=== PATIENT | male | born 1965 | race Caucasian/White ===

== ENCOUNTER 2025-10-15 21:29 | Inpatient (IN) | payer MEDICARE, MEDICAID, SELFPAY ==
--- NOTE | ~2025-10-15 | CT_ITS ---
CLINICAL HISTORY: Abnormal CXR; Cough; SOB CT chest with contrast Comparison: CR - XR CHEST 1V - 10/15/25 21:59 EST Findings: Patient's earlier chest x-ray demonstrate dense consolidation of the right lung base. CT scan demonstrates a cavitary lesion with fluid-fluid level corresponding to this area of consolidation. This cavitary lesion measures 4.4 x 4.8 cm in size. There is prominent surrounding consolidation within the lungs measuring 8.9 x 8.2 cm in size. This is primarily seen within the right middle lobe. However, there is extension of the consolidation into the superior segment of the right lower lobe. There is sparing of the right upper lobe. No infiltrates are seen within the left lung. Trachea mainstem bronchi are patent. Overall heart size within normal limits. No pathologically enlarged lymph nodes within the mediastinum or hilum. Mild elevation of the right hemidiaphragm. Extensive low attenuation throughout the liver is indicative of fatty infiltration. There are geographic areas of more focal low attenuation which is likely related to differential areas of fatty infiltration. This cavernous transformation of the portal vein with numerous collateral vessels in the region of the theresa hepatis. No focal splenic lesions are seen. Numerous collateral vessels along the lesser curvature of the stomach. Small peripancreatic lymph nodes. Tiny calcifications in the pancreatic head. Potential inflammatory stranding surrounding the pancreatic head and uncinate process of the pancreas as well. Common hepatic duct is dilated to 17 mm. Fairly abrupt cutoff of the common bile duct the level of the pancreas. Gallbladder is moderately distended. No free air in the upper abdomen. No acute bony abnormality. IMPRESSION: 1. Chest x-ray abnormality corresponds to a cavitary lesion with fluid fluid level within the right lung, primarily within the right middle lobe. There are surrounding areas of consolidation. Lung abscess would be the favored diagnosis. However, other etiologies could include the possibly of necrotic tumor. Cardiothoracic surgery consultation suggested. 2. Extensive low attenuation throughout the liver. More focal areas of low attenuation are likely related to differential areas of fatty infiltration. However, further evaluation with MRI of the liver is suggested. 3. Dilated common hepatic duct with abrupt cutoff in the region of the pancreas. There appears to be inflammatory stranding surrounding the pancreas with potential areas of scarring. Again, further evaluation with a MRI/MRCP of the abdomen is suggested. The timing of this MRI can be based on the patient's clinical scenario given the lung parenchymal findings. This document has been electronically signed by: José Miguel Pat MD on 10/16/2025 01:44:30
--- NOTE | ~2025-10-15 | XR_ITS ---
CLINICAL HISTORY: chest pain Exam: AP portable chest x-ray. Comparison: None provided. Findings: Mild hypoinflation. Moderate elevation of the right hemidiaphragm. Cardiac silhouette is within normal limits. Dense consolidation along the lateral aspect of the right mid lung with obscuration along the right lateral hemidiaphragm. Left lung is clear. No pneumothorax. Impression: Dense consolidation of the right lung base most characteristic of pneumonia. At minimum, follow up PA and lateral chest x-ray in 4-6 weeks is suggested to ensure resolution. If more urgent imaging evaluation is clinically appropriate, CT of the chest with intravenous contrast would be suggested. This document has been electronically signed by: José Miguel Pat MD on 10/15/2025 22:45:17
--- NOTE | ~2025-10-15 | MR_ITS ---
EXAMINATION: MR ABDOMEN WITHOUT THEN WITH IV CONTRAST HISTORY: liver lesion; pancreatitis COMPARISON: Correlation is made with the upper abdominal images from a chest CT dated 10/16/2025. TECHNIQUE: Axial in and out of phase T1-weighted gradient echo, axial diffusion weighted, and axial and coronal HASTE T2 with fat saturation images were obtained through the abdomen. Subsequently, fat suppressed axial and coronal T1-weighted images were obtained after the intravenous administration of 7 mL Gadavist. FINDINGS: Liver: There is heterogeneous loss of signal intensity in the liver on opposed phase imaging, consistent with steatosis. There is no enhancing liver mass. The intrahepatic hepatic and portal veins are patent. There is mild intrahepatic biliary ductal dilatation. Gallbladder/biliary tree: No gallstones are identified. The common bile duct is dilated measuring up to 17 mm in diameter. The common bile duct tapers abruptly in the pancreatic head. No intraluminal filling defects are identified to suggest choledocholithiasis. Spleen: The spleen is mildly enlarged. Pancreas: There is an irregular spiculated mass of the pancreatic head measuring 2.8 x 2.9 cm. This causes obstruction of the common bile duct. The extrahepatic portal vein is occluded by the pancreatic head mass. Multiple tortuous vessels are seen in the theresa hepatis consistent with cavernous transformation of the portal vein. Adrenals: The adrenal glands are unremarkable. Kidneys: There is a subcentimeter cyst at the upper pole of the right kidney. The left kidney is unremarkable. There is no hydronephrosis. Lymph nodes: There is no retroperitoneal lymphadenopathy in the upper abdomen. Fluid: There is no ascites in the upper abdomen. Visualized bowel: The visualized small and large bowel loops are unremarkable in appearance. Visualized bones: The visualized bones demonstrate normal marrow signal intensity. Additional findings: There is a cavitary mass in the right lung as noted on chest CT. There is surrounding airspace disease, consistent with pneumonia. MR/MR abdomen wo/w con IMPRESSION: 1. 2.8 x 2.9 cm irregular spiculated mass in the pancreatic head causing biliary obstruction as well as obstruction of the portal vein. Findings are highly suspicious for pancreatic adenocarcinoma. 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 2. Heterogeneous hepatic steatosis. 3. Cavitary mass in the right lung with surrounding pneumonia as seen on chest CT. 4. Findings were discussed with Dr. Michele by secure text message on 10/16/2025 at 3:54 PM. Electronically signed by: Ken Pino MD 10/16/2025 03:59 PM PO
--- NOTE | ~2025-10-15 | CT_ITS ---
CLINICAL HISTORY: Recurrent Falls; EtOH abuse CT head without contrast Comparison: None provided Findings: There is generalized cerebral and cerebellar atrophy, greater than expected for a patient of this age. The size and shape of the ventricular system is within normal limits for this degree of atrophy. Moderate areas of low attenuation seen within the periventricular and deep white matter. No midline shift or mass effect. No intracranial hemorrhage. No calvarial fractures. Complete opacification of the right maxillary sinus with surrounding bony sclerosis. Mild atelectasis of the right maxillary sinus with extension mucosal thickening into the anterior right ethmoid air cells. IMPRESSION: 1. No acute intracranial findings. Specifically, no hemorrhage, fracture, or acute territorial infarct. 2. Atrophy greater than expected for age with moderate white matter changes. Although nonspecific, this is likely related to chronic microvascular ischemic change. 3. Likely chronic right maxillary sinus disease. This document has been electronically signed by: José Miguel Pat MD on 10/16/2025 01:38:47
[2025-10-15 21:40] VITALS: BP 151/99; PULSE 97; O2SAT 95
[2025-10-15 21:42] VITALS: BP 147/90; PULSE 95; RESP 20; TEMP 36.8; O2SAT 97; BMI 24.3
--- NOTE | 2025-10-15 21:51 | ECG_ITS ---
Test Reason : falls Blood Pressure : */* mmHG Vent. Rate : 94 BPM Atrial Rate : 94 BPM P-R Int : 146 ms QRS Dur : 76 ms QT Int : 374 ms P-R-T Axes : 38 -22 -18 degrees QTcB Int : 467 ms Normal sinus rhythm Minimal voltage criteria for LVH, may be normal variant ( R in aVL ) Septal infarct , age undetermined Abnormal ECG No previous ECGs available Referred By: Generic ED Physician Electronically Signed By: KATELYNN ORLANDO
[2025-10-15 22:07] LABS: MANUAL DIFF FLAG NO
[2025-10-15 22:10] LABS: Hematocrit 30.0 % (42.0-52.0); Hemoglobin 9.3 g/dl (14.0-18.0); Imm Gran Abs Auto 0.05 X10*3/uL (0.00-0.03); Imm Gran Pct Auto 0.4 % (0.0-0.4); Lymphocytes Absolute Auto 1.4 X10*3/uL (1.2-4.9); Mean Corpuscular HGB Conc 31.0 g/dl (31.0-36.0); Mean Corpuscular Hemoglobin 24.2 pg (27.0-33.0); Mean Corpuscular Volume 77.9 fL (80.0-98.0); NRBC Abs Auto 0.000 X10*3/uL (0.0-0.012); NRBC Pct Auto 0.0 /100WBC (0.0-0.2); Platelet Count 335 X10*3/uL (160-400); Red Blood Count 3.85 X10*6/uL (4.60-5.80); White Blood Count 12.1 X10*3/uL (4.8-10.8)
[2025-10-15 22:35] LABS: Alanine Aminotransferase 9 U/L (0-40); Albumin Level 3.2 g/dL (3.5-5.0); Alkaline Phosphatase 78 U/L (39-117); Anion Gap 17 (12-20); Aspartate Amino Transferase 22 U/L (5-37); Blood Urea Nitrogen 10 mg/dL (9-16); Calcium 8.0 mg/dL (8.4-10.2); Carbon Dioxide 22 mmol/L (22-29); Chloride 95 mmol/L (96-108); Creatinine Clr Calc Pharmacy 87.4; Estimated Glomerular Filt Rate > 60; Magnesium 0.9 mg/dL (1.6-2.6); Potassium 3.6 mmol/L (3.3-5.1); Sodium 130 mmol/L (135-145); Total Protein 8.1 g/dL (6.5-8.0)
[2025-10-15 22:40] LABS: Troponin-I High Sensitivity < 2.7 ng/L (<3.5-35.0)
[2025-10-15] MEDS: Magnesium Sulfate/H2O 2 GM/50 ML PIGGYBACK IV (23:10)
[2025-10-15 23:27] LABS: IDNOW Serial# 55D5AD1C; Influenza B2 Negative (Negative)
[2025-10-15 23:33] LABS: Resp Syncy Virus RNA Qual PCR NEGATIVE (Negative); SARS COV2 PCR INHOUSE NEGATIVE (Negative)
--- NOTE | 2025-10-15 23:42 | ED_ITS ---
HPI - General Adult General Chief complaint: General Medical Stated complaint: BACK PAIN ETOH Time Seen by Provider: 10/15/25 23:41 Source: patient Mode of arrival: ambulatory Limitations: no limitations History of Present Illness ED Provider: Beau DE LA CRUZ HPI narrative: The patient is a 60-year-old male who presents to the ED for evaluation of worsening cough and chest pain. He reports a productive cough for approximately three months. Sputum color is unknown as he states he does not look at the sputum; he denies hemoptysis. Two weeks ago he experienced a syncopal episode, fell, and subsequently developed localized pain in the right upper chest/side. He denies associated fever, vomiting, diarrhea, or abdominal pain. He came to the ED tonight because the chest pain and cough have been getting worse rather than better. Social history is notable for alcohol use ?every now and then,? patient reports drinking alcohol this evening but denies daily use; reports he was not drinking on the night of the fall. He has not seen a doctor since the fall and has had no prior evaluation for these symptoms. Related Data Allergies Allergy/AdvReac Type Severity Reaction Status Date / Time No Known Allergies Allergy Verified 10/15/25 21:50 Review of Systems 2 Review of Systems: Yes all other systems are reviewed and are negative PMFSH Social History Social History Alcohol intake: current Patient Tobacco Use Status: Never used Tobacco Smoked in Last 30 Days: No Advance Directives: No Advance Directives Information Provided: No Physical Exam ED Vital Signs: Vital Signs - 24 hr 10/15/25 21:42 10/16/25 01:44 Temperature 98.3 F 98.9 F Pulse Rate 95 96 Respiratory Rate 20 16 Blood Pressure 147/90 H 124/86 Pulse Oximetry 97 95 Oxygen Delivery Method Room Air Room Air BMI result Body Mass Index 24.3 CONSTITUTIONAL: The patient appears non-toxic, well nourished and in no acute distress. Vital signs as documented. HEAD: Atraumatic, normocephalic. EYES: EOMs grossly intact, pupils equal, conjunctiva clear, no exudate. ENT: Nares patent, no discharge. Airway patent, no audible stridor, visible mucosa is pink and moist without noted lesions. NECK: Trachea is midline, no obvious masses or gross abnormalities. CHEST: Symmetric movement, normal appearance. Positive tenderness to palpation of the right anterolateral chest, palpation partially reproduces the patient's pain. LUNGS: LS diminished in the right lower lung washburn, otherwise present and CTAB, no w/r/r. Non-labored work of breathing. CARDIAC: Regular Rhythm, S1/S2 appreciated, no murmurs, rubs or gallops. ABDOMEN: Abdomen soft and non-tender x4 quadrants, no palpable masses or organomegaly. : Deferred. EXTREMITIES: Normal tone, moves all extremities spontaneously without reported pain. No obvious acute injury or deformity noted. NEURO: Alert and oriented x3, CN II-XII appear grossly intact. Cerebellar Functioning grossly intact. No obvious sensory or motor deficits. Speech clear and appropriate. PSYCH: normal affect, appropriate eye contact, fluid speech, with appropriate response to questioning. No reported suicidality or homicidality. SKIN: Warm, dry, color appropriate, normal turgor. No rashes noted. Medications Administered Generic Name Dose Route Start Last Admin Trade Name Freq PRN Reason Stop Dose Admin Heparin Sodium (Porcine) 5,000 unit 10/16/25 02:15 10/16/25 03:09 Heparin Sodium,Porcine 5,000 Unit/Ml Vial SUBCUT 5,000 unit Q8H ROMAN Administration Lactated Ringer's 1,000 mls @ 100 mls/hr 10/16/25 02:15 10/16/25 03:05 Lr IVCONT 100 mls/hr .Q10H ROMAN Administration Piperacillin Sod/Tazobactam 50 mls @ 100 mls/hr 10/16/25 02:30 10/16/25 04:16 Sod 3.375 gm/ Sodium Chloride IV Infused Q6H ROMAN Infusion Lorazepam 0 mg 10/16/25 04:30 10/16/25 06:18 Lorazepam 1 Mg Tablet PO 10/20/25 04:29 Not Given Q4H ROMAN Taper Melatonin 6 mg 10/16/25 02:11 10/16/25 05:15 Melatonin 3 Mg Tablet PO 6 mg BEDTIME PRN Administration Insomnia Discontinued Medications Generic Name Dose Route Start Last Admin Trade Name Freq PRN Reason Stop Dose Admin Magnesium Sulfate 2 gm in 50 mls @ 150 mls/hr 10/15/25 22:37 10/16/25 00:24 Magnesium Sulfate/H2o IV 10/15/25 22:56 Infused ONCE ONE Infusion Ceftriaxone Sodium 1 gm/ 50 mls @ 100 mls/hr 10/16/25 00:00 10/16/25 01:40 Sodium Chloride IV 10/16/25 00:29 Infused ONCE ONE Infusion Doxycycline Hyclate 100 mg/ 250 mls @ 166.67 mls/hr 10/16/25 00:00 10/16/25 04:17 Sodium Chloride IV 10/16/25 01:29 Infused ONCE ONE Infusion Sodium Chloride 2,109.21 mls @ 2,109.21 mls/hr 10/16/25 00:01 10/16/25 02:48 Ns 30 ml/kg infuse over 1 hr (2109.21 ml) 10/16/25 01:00 Infused IV Infusion .Q1H STA Vancomycin HCl 1,000 mg/ 535 mls @ 267.5 mls/hr 10/16/25 02:30 10/16/25 04:15 Vancomycin HCl 750 mg/ Sodium IV 10/16/25 04:29 267.5 mls/hr Chloride ONCE ONE Administration Iohexol 100 ml 10/16/25 00:41 10/16/25 00:42 Iohexol 350 Mg/Ml 100 Ml Infus..Btl IV 10/16/25 00:42 65 ml ONCE ONE Administration Lorazepam 2 mg 10/16/25 02:18 10/16/25 03:06 Lorazepam 1 Mg Tablet PO 10/16/25 02:19 2 mg ONCE ONE Administration Medical Decision Making Medical Decision Making [facility] Narrative: 12:57 AM 10/16/2025 (Elliot DE LA CRUZ): The patient is a 60-year-old male who presents to the ED for evaluation of worsening cough and chest pain. He reports a productive cough for approximately three months. Sputum color is unknown as he states he does not look at the sputum; he denies hemoptysis. Two weeks ago he experienced a syncopal episode, fell, and subsequently developed localized pain in the right upper chest/side. He denies associated fever, vomiting, diarrhea, or abdominal pain. He came to the ED tonight because the chest pain and cough have been getting worse rather than better. Social history is notable for alcohol use ?every now and then,? patient reports drinking alcohol this evening but denies daily use; reports he was not drinking on the night of the fall. He has not seen a doctor since the fall and has had no prior evaluation for these symptoms. On exam the patient has diminished breath sounds in the right base, otherwise clear to auscultation bilaterally. The patient appears mildly unkempt, clinically intoxicated, but in no acute distress. Palpation of the right lateral ribs partially reproduces the patient's pain. No other acute findings. The patient's laboratory evaluation shows leukocytosis of 12.1 with mild anemia, likely of chronic disease, with the associated hyponatremia with sodium 130, hypomagnesemia with magnesium 0.9, and hypoalbuminemia at 3.2. There was no BLANCA. The patient's viral swabs are negative for influenza, COVID, and RSV. The patient's alcohol level is 277. EKG is nonischemic, troponin is negative. The patient's chest x-ray shows dense consolidation in the right lower lobe with elevated right hemidiaphragm. Patient will be treated for suspected pneumonia with Rocephin and doxycycline, we will add on blood cultures and lactic acid. Additionally we will obtain CT chest to further clarify the chest x-ray findings. Patient reports he has been experiencing recurrent falls even before his fall 2 weeks ago with subsequent right chest pain, we will add on a CT head to ensure no acute intracranial pathology. Admission/Observation Consideration of admission/observation: Escalation of care including admission/observation considered Lab Data MDM Lab Attestation statement: I reviewed the patient's lab results. 10/16/25 05:10 10/16/25 05:10 Labs: Lab Results 10/15/25 10/15/25 10/15/25 Range/Units 22:01 22:04 22:46 WBC 12.1 H (4.8-10.8) X10*3/uL RBC 3.85 L (4.60-5.80) X10*6/uL Hgb 9.3 L (14.0-18.0) g/dl Hct 30.0 L (42.0-52.0) % MCV 77.9 L (80.0-98.0) fL MCH 24.2 L (27.0-33.0) pg MCHC 31.0 (31.0-36.0) g/dl RDW 19.3 H (11.0-16.0) % Plt Count 335 (160-400) X10*3/uL MPV 9.8 (9.4-12.4) fL Immature Gran % (Auto) 0.4 (0.0-0.4) % Neut % (Auto) 79.6 H (45-73) % Lymph % (Auto) 11.5 L (20-40) % [place] % (Auto) 6.7 (2-11) % Eos % (Auto) 1.1 (0-4) % Baso % (Auto) 0.7 (0-2) % Lymph # (Auto) 1.4 (1.2-4.9) X10*3/uL [place] # (Auto) 0.8 (0.1-1.2) X10*3/uL Eos # (Auto) 0.1 (0.0-0.4) X10*3/uL Baso # (Auto) 0.1 (0.0-0.2) X10*3/uL Abs Immat Gran (auto) 0.05 H (0.00-0.03) X10*3/uL Absolute Neuts (auto) 9.6 H (2.0-8.3) x10*3/uL Absolute Nucleated RBC 0.000 (0.0-0.012) X10*3/uL Nucleated RBC % (auto) 0.0 (0.0-0.2) /100WBC Sodium 130 L (135-145) mmol/L Potassium 3.6 (3.3-5.1) mmol/L Chloride 95 L (96-108) mmol/L Carbon Dioxide 22 (22-29) mmol/L Anion Gap 17 (12-20) BUN 10 (9-16) mg/dL Creatinine 0.85 (0.5-1.4) mg/dL Estim Creat Clear Calc 87.4 Estimated GFR > 60 Random Glucose 208 H (60-115) mg/dL Lactic Acid (0.5-2.0) mmol/L Calcium 8.0 L (8.4-10.2) mg/dL Magnesium 0.9 L* (1.6-2.6) mg/dL Total Bilirubin 0.6 (0.0-1.0) mg/dL AST 22 (5-37) U/L ALT 9 (0-40) U/L Alkaline Phosphatase 78 (39-117) U/L Troponin I High Sens < 2.7 (<3.5-35.0) ng/L Total Protein 8.1 H (6.5-8.0) g/dL Albumin 3.2 L (3.5-5.0) g/dL Lipase 17 (8-78) U/L Ethyl Alcohol 277 mg/dL Influenza Type A (MIRIAM) Negative (Negative) Influenza Type A (PCR) NEGATIVE (Negative) Influenza Type B (MIRIAM) Negative (Negative) Influenza Type B (PCR) NEGATIVE (Negative) Influenza A & B Note See Note RSV RNA Qual (PCR) NEGATIVE (Negative) SARS-CoV-2 RNA (RT-PCR) NEGATIVE (Negative) 10/16/25 Range/Units 00:58 WBC (4.8-10.8) X10*3/uL RBC (4.60-5.80) X10*6/uL Hgb (14.0-18.0) g/dl Hct (42.0-52.0) % MCV (80.0-98.0) fL MCH (27.0-33.0) pg MCHC (31.0-36.0) g/dl RDW (11.0-16.0) % Plt Count (160-400) X10*3/uL MPV (9.4-12.4) fL Immature Gran % (Auto) (0.0-0.4) % Neut % (Auto) (45-73) % Lymph % (Auto) (20-40) % [place] % (Auto) (2-11) % Eos % (Auto) (0-4) % Baso % (Auto) (0-2) % Lymph # (Auto) (1.2-4.9) X10*3/uL [place] # (Auto) (0.1-1.2) X10*3/uL Eos # (Auto) (0.0-0.4) X10*3/uL Baso # (Auto) (0.0-0.2) X10*3/uL Abs Immat Gran (auto) (0.00-0.03) X10*3/uL Absolute Neuts (auto) (2.0-8.3) x10*3/uL Absolute Nucleated RBC (0.0-0.012) X10*3/uL Nucleated RBC % (auto) (0.0-0.2) /100WBC Sodium (135-145) mmol/L Potassium (3.3-5.1) mmol/L Chloride (96-108) mmol/L Carbon Dioxide (22-29) mmol/L Anion Gap (12-20) BUN (9-16) mg/dL Creatinine (0.5-1.4) mg/dL Estim Creat Clear Calc Estimated GFR Random Glucose (60-115) mg/dL Lactic Acid 2.0 (0.5-2.0) mmol/L Calcium (8.4-10.2) mg/dL Magnesium (1.6-2.6) mg/dL Total Bilirubin (0.0-1.0) mg/dL AST (5-37) U/L ALT (0-40) U/L Alkaline Phosphatase (39-117) U/L Troponin I High Sens (<3.5-35.0) ng/L Total Protein (6.5-8.0) g/dL Albumin (3.5-5.0) g/dL Lipase (8-78) U/L Ethyl Alcohol mg/dL Influenza Type A (MIRIAM) (Negative) Influenza Type A (PCR) (Negative) Influenza Type B (MIRIAM) (Negative) Influenza Type B (PCR) (Negative) Influenza A & B Note RSV RNA Qual (PCR) (Negative) SARS-CoV-2 RNA (RT-PCR) (Negative) Independent Interpretation I performed an independent interpretation of an: EKG (EKG shows sinus rhythm with a rate of 94, no evidence of acute ischemia, no ST elevation, no ectopy. QTC 467. No old for comparison.) Radiology Impression Discussion of test interpretation with radiology: I have reviewed the radiologist's reading. Radiologist Impression: CLINICAL HISTORY: chest pain Exam: AP portable chest x-ray. Comparison: None provided. Findings: Mild hypoinflation. Moderate elevation of the right hemidiaphragm. Cardiac silhouette is within normal limits. Dense consolidation along the lateral aspect of the right mid lung with obscuration along the right lateral hemidiaphragm. Left lung is clear. No pneumothorax. Impression: Dense consolidation of the right lung base most characteristic of pneumonia. At minimum, follow up PA and lateral chest x-ray in 4-6 weeks is suggested to ensure resolution. If more urgent imaging evaluation is clinically appropriate, CT of the chest with intravenous contrast would be suggested. This document has been electronically signed by: José Miguel Pat MD on 10/15/2025 22:45:17 CT chest with contrast Comparison: CR - XR CHEST 1V - 10/15/25 21:59 EST Findings: Patient's earlier chest x-ray demonstrate dense consolidation of the right lung base. CT scan demonstrates a cavitary lesion with fluid-fluid level corresponding to this area of consolidation. This cavitary lesion measures 4.4 x 4.8 cm in size. There is prominent surrounding consolidation within the lungs measuring 8.9 x 8.2 cm in size. This is primarily seen within the right middle lobe. However, there is extension of the consolidation into the superior segment of the right lower lobe. There is sparing of the right upper lobe. No infiltrates are seen within the left lung. Trachea mainstem bronchi are patent. Overall heart size within normal limits. No pathologically enlarged lymph nodes within the mediastinum or hilum. Mild elevation of the right hemidiaphragm. Extensive low attenuation throughout the liver is indicative of fatty infiltration. There are geographic areas of more focal low attenuation which is likely related to differential areas of fatty infiltration. This cavernous transformation of the portal vein with numerous collateral vessels in the region of the theresa hepatis. No focal splenic lesions are seen. Numerous collateral vessels along the lesser curvature of the stomach. Small peripancreatic lymph nodes. Tiny calcifications in the pancreatic head. Potential inflammatory stranding surrounding the pancreatic head and uncinate process of the pancreas as well. Common hepatic duct is dilated to 17 mm. Fairly abrupt cutoff of the common bile duct the level of the pancreas. Gallbladder is moderately distended. No free air in the upper abdomen. No acute bony abnormality. IMPRESSION: 1. Chest x-ray abnormality corresponds to a cavitary lesion with fluid fluid level within the right lung, primarily within the right middle lobe. There are surrounding areas of consolidation. Lung abscess would be the favored diagnosis. However, other etiologies could include the possibly of necrotic tumor. Cardiothoracic surgery consultation suggested. 2. Extensive low attenuation throughout the liver. More focal areas of low attenuation are likely related to differential areas of fatty infiltration. However, further evaluation with MRI of the liver is suggested. 3. Dilated common hepatic duct with abrupt cutoff in the region of the pancreas. There appears to be inflammatory stranding surrounding the pancreas with potential areas of scarring. Again, further evaluation with a MRI/MRCP of the abdomen is suggested. The timing of this MRI can be based on the patient's clinical scenario given the lung parenchymal findings. This document has been electronically signed by: José Miguel Pat MD on 10/16/2025 01:44:30 External Record Review External record reviewed: Outpatient record and Prior outpatient labs Prescription Management I considered prescription management with: Antibiotic Discharge Plan Discharge Clinical Impression: Empyema of lung Patient Disposition: Admitted As Inpatient
[2025-10-16] VITALS (10 sets, daily range): BP systolic 124–190; BP diastolic 80–106; PULSE 78–113; RESP 12–28; TEMP 36.9–38.1; O2SAT 95–100; BMI 23.8
[2025-10-16] MEDS: 0.9 % Sodium Chloride 2,109.21 ML 2109.21 ML IV (00:30)
[2025-10-16] MEDS: iohexoL 350 MG/ML 100 ML INFUS..BTL IV (00:42)
--- NOTE | 2025-10-16 02:18 | P.HPHOSP_ITS ---
History of Present Illness Date of Service: 10/16/25 Chief Complaint: cough 60-year-old male with a past medical history of alcohol use disorder presented to the hospital with a chief complaint of cough and chest pain. Patient reports that he drinks alcohol on regular basis. About 2 weeks ago he had a fall and lost consciousness. Since then has been having pain on his chest wall; Also has been having cough which has been gradually worsening. Denies any fevers. Denies any GI or symptoms. Review of all other systems is negative except mentioned above ER course: Per ER team, patient has reproducible chest wall pain; chest x-ray showed right sided pneumonia; exam grossly nonfocal. CT head showed no acute findings; breathing comfortably; blood pressure is stable; on labs noted 2 hypomagnesemia, hyponatremia-repleted; CT chest was done which showed right middle lobe lung abscess/necrotic tumor. Given antibiotics. [facility] Social History Advance Directives: No Advance Directives Information Provided: No Meds Allergies Allergy/AdvReac Type Severity Reaction Status Date / Time No Known Allergies Allergy Verified 10/15/25 21:50 Active Medications: Current Medications Acetaminophen (Acetaminophen 325 Mg Tablet) 650 mg PO Q6H PRN PRN Reason: Pain, Mild 1-3,fever,headache Albuterol/Ipratropium (Albuterol/Iprat 2.5/0.5mg 3 Ml Ampul.Neb) 3 ml INHALE Q4H PRN PRN Reason: Shortness of Breath/Wheezing Benzonatate (Benzonatate 100 Mg Capsule) 100 mg PO TID PRN PRN Reason: Cough Calcium Carbonate (Calcium Carbonate 750 Mg Tab.Chew) 750 mg PO Q4H PRN PRN Reason: Heartburn Heparin Sodium (Porcine) (Heparin Sodium,Porcine 5,000 Unit/Ml Vial) 5,000 unit SUBCUT Q8H ROMAN Hydromorphone HCl (Hydromorphone Hcl 1 Mg/Ml Syringe) 0.5 mg IVPUSH Q4H PRN; Protocol PRN Reason: Breakthrough Pain Lactated Ringer's (Lr) 1,000 mls @ 100 mls/hr IVCONT .Q10H ROMAN Magnesium Hydroxide (Milk Of Magnesia 30 Ml Oral.Susp) 30 ml PO DAILY PRN PRN Reason: Constipation Melatonin (Melatonin 3 Mg Tablet) 6 mg PO BEDTIME PRN PRN Reason: Insomnia Sodium Chloride (0.9 % Sodium Chloride Flush 3 Ml Syringe) 3 ml IVFLUSH QSHIFT ROMAN Temazepam (Temazepam 15 Mg Capsule) 15 mg PO BEDTIME PRN PRN Reason: Insomnia Physical Exam 2 Vital Signs and Narrative: Vital Signs: Last Vital Signs Temp 98.9 F 10/16/25 01:44 Pulse 96 10/16/25 01:44 Resp 16 10/16/25 01:44 BP 124/86 10/16/25 01:44 Pulse Ox 95 10/16/25 01:44 O2 Del Method Room Air 10/16/25 01:44 BMI result Body Mass Index 24.3 Gen: Appears be in no acute distress HEENT: NCAT, Moist mucosa. Pulmonary: Coarse breath sounds CVS: Normal S1-S2 Abdomen: BS+, Soft, Nontender Extremities: Warm well perfused Neuro: Alert and awake. Results Labs 10/15/25 22:04 10/15/25 22:04 Labs: Laboratory Results - last 24 hr 10/15/25 10/15/25 10/15/25 22:01 22:04 22:46 MCV 77.9 L MCH 24.2 L MCHC 31.0 RDW 19.3 H Plt Count 335 MPV 9.8 Immature Gran % (Auto) 0.4 Neut % (Auto) 79.6 H Lymph % (Auto) 11.5 L [place] % (Auto) 6.7 Eos % (Auto) 1.1 Baso % (Auto) 0.7 Lymph # (Auto) 1.4 [place] # (Auto) 0.8 Eos # (Auto) 0.1 Baso # (Auto) 0.1 Abs Immat Gran (auto) 0.05 H Absolute Neuts (auto) 9.6 H Absolute Nucleated RBC 0.000 Nucleated RBC % (auto) 0.0 Anion Gap 17 Estim Creat Clear Calc 87.4 Estimated GFR > 60 Random Glucose 208 H Lactic Acid Calcium 8.0 L Magnesium 0.9 L* Total Bilirubin 0.6 AST 22 ALT 9 Alkaline Phosphatase 78 Troponin I High Sens < 2.7 Total Protein 8.1 H Albumin 3.2 L Ethyl Alcohol 277 Influenza Type A (MIRIAM) Negative Influenza Type A (PCR) NEGATIVE Influenza Type B (MIRIAM) Negative Influenza Type B (PCR) NEGATIVE Influenza A & B Note See Note RSV RNA Qual (PCR) NEGATIVE SARS-CoV-2 RNA (RT-PCR) NEGATIVE 10/16/25 00:58 MCV MCH MCHC RDW Plt Count MPV Immature Gran % (Auto) Neut % (Auto) Lymph % (Auto) Carl[place] % (Auto) Eos % (Auto) Baso % (Auto) Lymph # (Auto) [place] # (Auto) Eos # (Auto) Baso # (Auto) Abs Immat Gran (auto) Absolute Neuts (auto) Absolute Nucleated RBC Nucleated RBC % (auto) Anion Gap Estim Creat Clear Calc Estimated GFR Random Glucose Lactic Acid 2.0 Calcium Magnesium Total Bilirubin AST ALT Alkaline Phosphatase Troponin I High Sens Total Protein Albumin Ethyl Alcohol Influenza Type A (MIRIAM) Influenza Type A (PCR) Influenza Type B (MIRIAM) Influenza Type B (PCR) Influenza A & B Note RSV RNA Qual (PCR) SARS-CoV-2 RNA (RT-PCR) Assessment and Plan (1) Pneumonia: Qualifiers: Pneumonia type: due to unspecified organism Laterality: right Lung location: middle lobe of lung Qualified Code(s): J18.9 - Pneumonia, unspecified organism Status: Acute Plan 60-year-old male with a past medical history of alcohol use disorder presented to the hospital with a chief complaint of cough and chest pain. Chest pain: Reproducible. EKG nonischemic. Troponin negative Lung abscess/suspected necrotic tumor: Continue IV vancomycin and Zosyn Will consult ID and pulmonology for further input DuoNebs p.r.n. Supplemental oxygen p.r.n. Pain control Pancreatitis: Suspected liver lesion: MRI abdomen ordered Pain control Advanced diet as tolerated Gastroenterology consult Alcohol use disorder: Monitor on CIWA protocol. Thiamine folate and multivitamins. Fall: Mechanical nature. CT head showed acute findings. Syncope: Patient had a fall after drinking and had brief LOC about 2 weeks ago. Currently asymptomatic. Echocardiogram. Will defer to day team to consider Holter at the time of discharge. DVT prophylaxis: Subcu heparin Code status: Full code Quality Stroke Does the patient have a stroke diagnosis?: No VTE Prior VTE?: No VTE Risk Level:: Medical - moderate - high VTE Device Contraindication: Treatment Not Indicated VTE Drug Contraindication: N/A - Med Ordered
[2025-10-16] MEDS: Lactated Ringers 1,000 ML 100 ML IVCONT ×2 (03:05→13:59)
[2025-10-16 03:11] LABS: Lipase 17 U/L (8-78)
[2025-10-16] MEDS: vancomycin HCL 1,000 MG, vancomycin HCL 750 MG in 0.9 % Sodium Chloride 500 ML 267.5 MG IV (04:15)
[2025-10-16 05:17] LABS: MANUAL DIFF FLAG NO
[2025-10-16 05:21] LABS: Hematocrit 26.3 % (42.0-52.0); Hemoglobin 8.0 g/dl (14.0-18.0); Imm Gran Abs Auto 0.04 X10*3/uL (0.00-0.03); Imm Gran Pct Auto 0.5 % (0.0-0.4); Lymphocytes Absolute Auto 0.8 X10*3/uL (1.2-4.9); Mean Corpuscular HGB Conc 30.4 g/dl (31.0-36.0); Mean Corpuscular Hemoglobin 23.9 pg (27.0-33.0); Mean Corpuscular Volume 78.5 fL (80.0-98.0); NRBC Abs Auto 0.000 X10*3/uL (0.0-0.012); NRBC Pct Auto 0.0 /100WBC (0.0-0.2); Platelet Count 252 X10*3/uL (160-400); Red Blood Count 3.35 X10*6/uL (4.60-5.80); White Blood Count 8.1 X10*3/uL (4.8-10.8)
[2025-10-16 05:43] LABS: Alanine Aminotransferase 8 U/L (0-40); Albumin Level 2.7 g/dL (3.5-5.0); Alkaline Phosphatase 68 U/L (39-117); Anion Gap 12 (12-20); Aspartate Amino Transferase 31 U/L (5-37); Blood Urea Nitrogen 11 mg/dL (9-16); Calcium 7.3 mg/dL (8.4-10.2); Carbon Dioxide 24 mmol/L (22-29); Chloride 101 mmol/L (96-108); Creatinine Clr Calc Pharmacy 84.5; Estimated Glomerular Filt Rate > 60; Potassium 3.7 mmol/L (3.3-5.1); Sodium 133 mmol/L (135-145); Total Protein 6.9 g/dL (6.5-8.0)
--- NOTE | 2025-10-16 07:00 | CA_ITS ---
Transthoracic Echocardiogram Patient (Last, First, Middle): Yvon Nixon A. Gender: M Date of : 1965 Age: 60 Procedure Date: 10/16/2025 Procedure Type: Transthoracic Echocardiogram [place] [facility] [place] Height: 170.18 cm Weight: 70.31 kg BSA: 1.81 m2 Heart Rate: 109 bpm BP: 151 / 83 mmHg Chairman Of The Board: MANNY Referring MD: Jono Alcantara MD Symptoms: syncope Study Quality: Adequate ECG Rhythm: Sinus tachycardia Conclusions: - The left ventricular systolic function is normal. The calculated ejection fraction is 56% by biplane method. - Early aortic stenosis. Findings Left Ventricle Normal left ventricular cavity size. There is mildly increased left ventricular wall thickness. The left ventricular systolic function is normal. The calculated ejection fraction is 56% by biplane method. There is no evidence of regional wall motion abnormalities. Diastolic function is normal for age. Right Ventricle Normal right ventricular cavity size and systolic function. Atria Both atria are normal in size. Aortic Valve There is mild calcification of the aortic valve. There is no aortic valve regurgitation. Early aortic stenosis. Mitral Valve The mitral valve appears normal. There is trace mitral valve regurgitation. There is no mitral valve stenosis. Pulmonic Valve The pulmonic valve is likely normal. Tricuspid Valve There is trace tricuspid valve regurgitation. There is no evidence of pulmonary hypertension. Great Vessels The asc aorta and aortic arch are normal in size. Venous The inferior vena cava is normal in size and collapses greater than 50% with inspiration. Pericardium/Pleural There is no evidence of pericardial effusion. Prior Study Comparison No prior study available for comparison. Recommendations, Care & Conclusions No obvious valvular pathology seen on this study. Measurements 2D Linear Measurements IVSd: 1.11 0.6-0.9/0.6-1.0 cm LVIDd: 4.60 3.9-5.3/4.2-5.9 cm LVIDd Index: 2.54 2.4-3.2/2.2-3.1 cm/m2 LVIDs: 2.86 2.0-3.6 cm LVPWd: 1.27 0.7-1.1 cm LA Diam: 3.00 2.7-3.8/3.0-4.0 cm LAIDs Index: 1.66 1.5-2.3 cm/m2 LV Mass: 252.44 67-162/88-224 g LV Mass Index: 139.47 43-95/49-115 g/m2 LVOT Diam: 2.10 3.0+(-)1.3 cm 2D Systolic Function EF 4C: 53.70 >55% EF 2C: 59.60 >55% EF BiP: 55.60 >55% Mitral Valve MV Pk E: 0.83 MV PK A: 1.12 MV Decel Time: 232.00 E/A: 0.70 E'Lateral: 10.60 E'Medial: 7.29 E/E' Med: 11.40 E/E' Lat: 7.90 PHT: 68.00 MVA PHT: 3.24 Decel [place]: 3.59 Aortic Valve AoV Pk Natan: 2.13 AoV Mn Natan: 1.48 AoV VTI: 0.29 AoV Pk Grad: 18.00 Aov Mn Grad: 10.00 LEXI Cont.VTI: 1.81 LVOT LVOT Pk Natan: 0.99 LVOT Mn Natan: 0.80 LVOT VTI: 0.15 LVOT Pk Grad: 4.00 LVOT Mn Grad: 3.00 LVOT Diam: 2.10 LVOT Area: 3.46 Diastolic Function MV Pk E: 0.83 MV Pk A: 1.12 E/A: 0.70 E'Medial: 7.29 E/E' Med: 11.40 E' Laterial: 10.60 E/E' Lat: 7.90 Right Ventricle TAPSE (mm): 18.70 TVS' Natan: 16.50 Tricuspid Valve RA Press: 3.00 Great Vessels Aorta Sinus of Valsalva: 3.10 2.0-3.5 cm Ao Asc: 3.60 2.1-3.4 cm Ao Arch: 2.40 Pulmonary Veins Pulm Vein S/D 1.40 Pulmonary Valve PV Pk Natan: 1.60 Peak PV Grad: 10.00 Updated in Other Vendor System with Status of Final Greg Delatorre MD electronically signed on 10/16/2025 3:11:21 PM with status of Final
--- NOTE | 2025-10-16 07:19 | PHA.PROG ---
Admission Date/Time: October 16, 2025 02:12 Indication: respiratory infection Weight in k.307 kg Adjusted body weight in K.7 White body weight in K.1 Obesity Dosing Indication % IBW: Serum Creatinine - Last 168 Hours 10/15/25 10/16/25 22:04 05:10 Creatinine 0.85 0.88 Estimated CrCl and GFR - Last 168 Hours 10/15/25 10/16/25 22:04 05:10 Estim Creat Clear Calc 87.4 84.5 Estimated GFR > 60 > 60 Vancomycin Loading Dose: 1750 mg x 1 Current Vancomycin Dosing Regimen: 1000 mg q12h Vancomycin Monitoring using AUC goal of 400 - 600 range with trough as surrogate marker: predicted AUC 558 Date and Time for next Vancomycin Level to be drawn: trough before 4th dose @1400 Pharmacist Comments on Vancomycin Plan: Vancomycin dosing will take advantage of [employer] as a clinical decision support tool that uses Bayesian modeling to calculate individual patient's pharmacokinetic parameters and forecast the patient's drug concentration time course with the target goal AUC 24 range of 400 - 600 mg/L/hr.
--- NOTE | 2025-10-16 07:32 | PC.NURSE ---
Provider alerted about pts vitals this morning. Also alerted about Ativan taper issue in MAR
--- NOTE | 2025-10-16 07:42 | PHA.MEDREC ---
Pharmacy Consult ? Medication Reconciliation Pharmacy has completed the medication reconciliationPatient stated he is not on any medication, no claims history showing as well.
[2025-10-16 07:58] LABS: Magnesium 1.1 mg/dL (1.6-2.6)
--- NOTE | 2025-10-16 08:15 | HO.NURTONUR ---
PER MD: The patient is a 60-year-old male who presents to the ED for evaluation of worsening cough and chest pain. He reports a productive cough for approximately three months. Sputum color is unknown as he states he does not look at the sputum; he denies hemoptysis. Two weeks ago he experienced a syncopal episode, fell, and subsequently developed localized pain in the right upper chest/side. He denies associated fever, vomiting, diarrhea, or abdominal pain. He came to the ED tonight because the chest pain and cough have been getting worse rather than better. Social history is notable for alcohol use ?every now and then,? patient reports drinking alcohol this evening but denies daily use; reports he was not drinking on the night of the fall. He has not seen a doctor since the fall and has had no prior evaluation for these symptoms. PER RN: Admit: Pneumonia, hypoxia Alert and oriented, independent O2: 2L NC O2 (not baseline) IV: 20G in right wrist Meds: LR 100ml/hr PROVIDER AWARE OF VITALS THIS MORNING, medicated Mild headache, CIWA low (prn ativan if needed)
[2025-10-16] MEDS: Magnesium Sulfate/H2O 2 GM/50 ML PIGGYBACK IV (08:34)
--- NOTE | 2025-10-16 09:48 | P.PNIM_ITS ---
Subjective Subjective Date of Service: 10/16/25 Interval History: weakness, chest pain, cough Physical Exam 2 Exam: Exam: General: AO X 3, ill-appearing, halitosis Resp: Right lower lobe crackles, no accessory muscles used CVS: S1,S2,RRR GI: soft, non tender, non distended Neuro: motor grossly intact, alert Psych: appropriate affect, appropriate insight Vital Signs: Vital Signs: Last Vital Signs Temp 98.4 F 10/16/25 09:34 Pulse 108 H 10/16/25 09:34 Resp 18 10/16/25 09:34 BP 162/104 H 10/16/25 09:34 Pulse Ox 99 10/16/25 09:34 O2 Del Method Nasal Cannula 10/16/25 09:34 O2 Flow Rate 2 10/16/25 09:34 BMI result Body Mass Index 23.8 Objective Data Active Medications Acetaminophen (Acetaminophen 325 Mg Tablet) 650 mg PO Q6H PRN PRN Reason: Pain, Mild 1-3,fever,headache Albuterol/Ipratropium (Albuterol/Iprat 2.5/0.5mg 3 Ml Ampul.Neb) 3 ml INHALE Q4H PRN PRN Reason: Shortness of Breath/Wheezing Amlodipine Besylate (Amlodipine Besylate 10 Mg Tablet) 10 mg PO DAILY [facility]; Protocol Last Admin: 10/16/25 08:05 Dose: 10 mg Documented By: CATHY Benzonatate (Benzonatate 100 Mg Capsule) 100 mg PO TID PRN PRN Reason: Cough Calcium Carbonate (Calcium Carbonate 750 Mg Tab.Chew) 750 mg PO Q4H PRN PRN Reason: Heartburn Folic Acid (Folic Acid 1 Mg Tablet) 1 mg PO DAILY [facility] Stop: 10/19/25 08:59 Last Admin: 10/16/25 08:01 Dose: 1 mg Documented By: CATHY Heparin Sodium (Porcine) (Heparin Sodium,Porcine 5,000 Unit/Ml Vial) 5,000 unit SUBCUT Q8H [facility] Last Admin: 10/16/25 03:09 Dose: 5,000 unit Documented By: JAIR Hydromorphone HCl (Hydromorphone Hcl 1 Mg/Ml Syringe) 0.5 mg IVPUSH Q4H PRN; Protocol PRN Reason: Breakthrough Pain Lactated Ringer's (Lr) 1,000 mls @ 100 mls/hr IVCONT .Q10H [facility] Last Admin: 10/16/25 03:05 Dose: 100 mls/hr Documented By: JAIR Piperacillin Sod/Tazobactam (Sod 3.375 gm/ Sodium Chloride) 50 mls @ 100 mls/hr IV Q6H [facility] Last Infusion: 10/16/25 08:37 Dose: Infused Documented By: CATHY Vancomycin HCl 1,000 mg/ (Sodium Chloride) 270 mls @ 270 mls/hr IV Q12H [facility] Magnesium Sulfate (Magnesium Sulfate/H2o) 2 gm in 50 mls @ 25 mls/hr IV ONCE ONE Stop: 10/16/25 10:00 Last Admin: 10/16/25 08:34 Dose: 25 mls/hr Documented By: CATHY Lorazepam (Lorazepam 1 Mg Tablet) 1 mg PO Q4H PRN PRN Reason: Breakthrough alcohol withdrawa Stop: 10/20/25 02:17 Losartan Potassium (Losartan Potassium 25 Mg Tablet) 25 mg PO DAILY [facility]; Protocol Last Admin: 10/16/25 08:04 Dose: 25 mg Documented By: CATHY Magnesium Hydroxide (Milk Of Magnesia 30 Ml Oral.Susp) 30 ml PO DAILY PRN PRN Reason: Constipation Magnesium Oxide (Magnesium Oxide 400 Mg Tablet) 800 mg PO BIDPC ROMAN Melatonin (Melatonin 3 Mg Tablet) 6 mg PO BEDTIME PRN PRN Reason: Insomnia Last Admin: 10/16/25 05:15 Dose: 6 mg Documented By: JAIR Multivitamins/Vitamin C (Multivitamin Tablet) 1 tab PO DAILY [facility] Stop: 10/19/25 08:59 Last Admin: 10/16/25 08:04 Dose: 1 tab Documented By: CATHY Pantoprazole Sodium (Pantoprazole Sodium 40 Mg/10 Ml Vial) 40 mg IVPUSH DAILY@0630 [facility] Last Admin: 10/16/25 06:46 Dose: 40 mg Documented By: JAIR Pharmacy Consult (Consult Rx Vancomycin Dosing) 1 each MISCELLANE DAILY PRN PRN Reason: Consult order Sodium Chloride (0.9 % Sodium Chloride Flush 3 Ml Syringe) 3 ml IVFLUSH QSHIFT [facility] Last Admin: 10/16/25 07:21 Dose: Not Given Documented By: CATHY Non-Admin Reason: IV Running Temazepam (Temazepam 15 Mg Capsule) 15 mg PO BEDTIME PRN PRN Reason: Insomnia Thiamine HCl (Thiamine Hcl 100 Mg Tablet) 100 mg PO DAILY ROMAN Stop: 10/19/25 08:59 Last Admin: 10/16/25 08:04 Dose: 100 mg Documented By: CATHY Labs 10/16/25 05:10 10/16/25 05:10 Labs: Laboratory Results - last 24 hr 10/15/25 10/15/25 10/15/25 22:01 22:04 22:46 MCV 77.9 L MCH 24.2 L MCHC 31.0 RDW 19.3 H Plt Count 335 MPV 9.8 Immature Gran % (Auto) 0.4 Neut % (Auto) 79.6 H Lymph % (Auto) 11.5 L [place] % (Auto) 6.7 Eos % (Auto) 1.1 Baso % (Auto) 0.7 Lymph # (Auto) 1.4 [place] # (Auto) 0.8 Eos # (Auto) 0.1 Baso # (Auto) 0.1 Abs Immat Gran (auto) 0.05 H Absolute Neuts (auto) 9.6 H Absolute Nucleated RBC 0.000 Nucleated RBC % (auto) 0.0 Anion Gap 17 Estim Creat Clear Calc 87.4 Estimated GFR > 60 Random Glucose 208 H Lactic Acid Calcium 8.0 L Magnesium 0.9 L* Total Bilirubin 0.6 AST 22 ALT 9 Alkaline Phosphatase 78 Troponin I High Sens < 2.7 Total Protein 8.1 H Albumin 3.2 L Lipase 17 Ethyl Alcohol 277 Influenza Type A (MIRIAM) Negative Influenza Type A (PCR) NEGATIVE Influenza Type B (MIRIAM) Negative Influenza Type B (PCR) NEGATIVE Influenza A & B Note See Note RSV RNA Qual (PCR) NEGATIVE SARS-CoV-2 RNA (RT-PCR) NEGATIVE 10/16/25 10/16/25 00:58 05:10 MCV 78.5 L MCH 23.9 L MCHC 30.4 L RDW 19.4 H Plt Count 252 MPV 9.9 Immature Gran % (Auto) 0.5 H Neut % (Auto) 79.4 H Lymph % (Auto) 10.4 L [place] % (Auto) 6.9 Eos % (Auto) 2.2 Baso % (Auto) 0.6 Lymph # (Auto) 0.8 L [place] # (Auto) 0.6 Eos # (Auto) 0.2 Baso # (Auto) 0.1 Abs Immat Gran (auto) 0.04 H Absolute Neuts (auto) 6.4 Absolute Nucleated RBC 0.000 Nucleated RBC % (auto) 0.0 Anion Gap 12 Estim Creat Clear Calc 84.5 Estimated GFR > 60 Random Glucose 157 H Lactic Acid 2.0 Calcium 7.3 L D Magnesium 1.1 L* Total Bilirubin 0.4 AST 31 ALT 8 Alkaline Phosphatase 68 Troponin I High Sens Total Protein 6.9 Albumin 2.7 L Lipase Ethyl Alcohol Influenza Type A (MIRIAM) Influenza Type A (PCR) Influenza Type B (MIRIAM) Influenza Type B (PCR) Influenza A & B Note RSV RNA Qual (PCR) SARS-CoV-2 RNA (RT-PCR) Assessment and Plan (1) Empyema of lung: Status: Acute Plan 60M PMH alcohol dependence presented with weakness, found to have cavitary lung lesion, uncontrolled hypertension, severe hypomagnesemia Right lower lobe lung abscess due to alcohol dependence Continue IV vancomycin Zosyn, follow up ID and pulmonology, follow up cultures Necrotic lung tumors is in differential and should be ruled out after treatment Abnormal liver imaging Check MRCP Alcohol dependence Monitor CIWA, vitamin supplement Uncontrolled hypertension Added amlodipine and losartan, monitor Severe symptomatic hypomagnesemia due to alcohol Replace and monitor magnesium DVT prophylaxis with heparin subQ Full code reason for continued hospitalization: Severe hypomagnesemia Quality Stroke Does the patient have a stroke diagnosis?: No VTE Prior VTE?: No VTE Risk Level:: Medical - moderate - high VTE Device Contraindication: Treatment Not Indicated VTE Drug Contraindication: N/A - Med Ordered
--- NOTE | 2025-10-16 14:27 | HO.ADDICTCON ---
History of Present Illness Date of Service: 10/16/2025 Chief Complaint: pna Reason for Consult: alcohol use Sources of Information: patient interviewed and chart reviewed HPI Narrative: Patient is a 60 year old male, medically admitted with pneumonia and empyema. Prior to coming to ED, he reported several month of productive cough and most recently worsening chest pain, which is what prompted ED visit. Consult requested as patient reporting alcohol use and in ED ETOH level 277. Patient seen in room 462, he sleeping, but wakes easily to voice. He is pleasant, and engaged in interview. Challenging to illicit any information as he consistently provided conflicting information Stated that he drank daily a couple of shots and maybe a bottle of double deuce later in interview he stated he would only drink one or 2 days per week He denies any history of withdrawal sx at home, including tremors. Denies any history of treatment When asked how he was feeling now, he shrugged his shoulders. T/W asked if there was anyone we could speak to, to get more history around his drinking and he replied yes, they are coming here . He appears comfortable, no diaphoresis or restlessness noted. Ill appearing, weak. Slowed speech. No tremor noted. HR and BP elevated. Denies nausea, loose stools Labs reviewed -notable for low albumin, Mg, Na,Ca UDS negative Medical Evaluation Reviewed: Yes Review of Systems Constitutional: Reports as per HPI (somewhat limited as patient poor historian ) Diagnostics Vital Signs (24Hr): Vital Signs - 24 hr 10/15/25 21:42 10/16/25 01:44 10/16/25 04:57 Temperature 98.3 F 98.9 F 98.8 F Pulse Rate 95 96 111 H Respiratory Rate 20 16 12 Blood Pressure 147/90 H 124/86 149/94 H Pulse Oximetry 97 95 100 Oxygen Delivery Method Room Air Room Air Nasal Cannula Oxygen Flow Rate 2 10/16/25 07:24 10/16/25 08:04 10/16/25 08:05 Temperature Pulse Rate 103 H Respiratory Rate 28 H Blood Pressure 190/106 H 190/104 H 190/104 H Pulse Oximetry 100 Oxygen Delivery Method Nasal Cannula Oxygen Flow Rate 2 10/16/25 09:34 10/16/25 11:05 10/16/25 12:43 Temperature 98.4 F 100.6 F H 98.8 F Pulse Rate 108 H 113 H Respiratory Rate 18 18 Blood Pressure 162/104 H 151/83 H Pulse Oximetry 99 99 Oxygen Delivery Method Nasal Cannula Nasal Cannula Oxygen Flow Rate 2 2 BMI result Body Mass Index 23.8 Labs 10/16/25 05:10 10/16/25 05:10 Labs: Laboratory Results - last 48 hr 10/15/25 10/15/25 10/15/25 22:01 22:04 22:46 WBC 12.1 H RBC 3.85 L Hgb 9.3 L Hct 30.0 L MCV 77.9 L MCH 24.2 L MCHC 31.0 RDW 19.3 H Plt Count 335 MPV 9.8 Immature Gran % (Auto) 0.4 Neut % (Auto) 79.6 H Lymph % (Auto) 11.5 L [place] % (Auto) 6.7 Eos % (Auto) 1.1 Baso % (Auto) 0.7 Lymph # (Auto) 1.4 [place] # (Auto) 0.8 Eos # (Auto) 0.1 Baso # (Auto) 0.1 Abs Immat Gran (auto) 0.05 H Absolute Neuts (auto) 9.6 H Absolute Nucleated RBC 0.000 Nucleated RBC % (auto) 0.0 Sodium 130 L Potassium 3.6 Chloride 95 L Carbon Dioxide 22 Anion Gap 17 BUN 10 Creatinine 0.85 Estim Creat Clear Calc 87.4 Estimated GFR > 60 Random Glucose 208 H Lactic Acid Calcium 8.0 L Magnesium 0.9 L* Total Bilirubin 0.6 AST 22 ALT 9 Alkaline Phosphatase 78 Troponin I High Sens < 2.7 Total Protein 8.1 H Albumin 3.2 L Lipase 17 Ethyl Alcohol 277 Influenza Type A (MIRIAM) Negative Influenza Type A (PCR) NEGATIVE Influenza Type B (MIRIAM) Negative Influenza Type B (PCR) NEGATIVE Influenza A & B Note See Note RSV RNA Qual (PCR) NEGATIVE SARS-CoV-2 RNA (RT-PCR) NEGATIVE 10/16/25 10/16/25 00:58 05:10 WBC 8.1 RBC 3.35 L Hgb 8.0 L Hct 26.3 L MCV 78.5 L MCH 23.9 L MCHC 30.4 L RDW 19.4 H Plt Count 252 MPV 9.9 Immature Gran % (Auto) 0.5 H Neut % (Auto) 79.4 H Lymph % (Auto) 10.4 L [place] % (Auto) 6.9 Eos % (Auto) 2.2 Baso % (Auto) 0.6 Lymph # (Auto) 0.8 L [place] # (Auto) 0.6 Eos # (Auto) 0.2 Baso # (Auto) 0.1 Abs Immat Gran (auto) 0.04 H Absolute Neuts (auto) 6.4 Absolute Nucleated RBC 0.000 Nucleated RBC % (auto) 0.0 Sodium 133 L Potassium 3.7 Chloride 101 Carbon Dioxide 24 Anion Gap 12 BUN 11 Creatinine 0.88 Estim Creat Clear Calc 84.5 Estimated GFR > 60 Random Glucose 157 H Lactic Acid 2.0 Calcium 7.3 L D Magnesium 1.1 L* Total Bilirubin 0.4 AST 31 ALT 8 Alkaline Phosphatase 68 Troponin I High Sens Total Protein 6.9 Albumin 2.7 L Lipase Ethyl Alcohol Influenza Type A (MIRIAM) Influenza Type A (PCR) Influenza Type B (MIRIAM) Influenza Type B (PCR) Influenza A & B Note RSV RNA Qual (PCR) SARS-CoV-2 RNA (RT-PCR) Medications Medications Current Medications Acetaminophen (Acetaminophen 325 Mg Tablet) 650 mg PO Q6H PRN PRN Reason: Pain, Mild 1-3,fever,headache Last Admin: 10/16/25 11:43 Dose: 650 mg Albuterol/Ipratropium (Albuterol/Iprat 2.5/0.5mg 3 Ml Ampul.Neb) 3 ml INHALE Q4H PRN PRN Reason: Shortness of Breath/Wheezing Amlodipine Besylate (Amlodipine Besylate 10 Mg Tablet) 10 mg PO DAILY [facility]; Protocol Last Admin: 10/16/25 08:05 Dose: 10 mg Benzonatate (Benzonatate 100 Mg Capsule) 100 mg PO TID PRN PRN Reason: Cough Calcium Carbonate (Calcium Carbonate 750 Mg Tab.Chew) 750 mg PO Q4H PRN PRN Reason: Heartburn Diazepam (Diazepam 5 Mg Tablet) 10 mg PO Q6H [facility] Stop: 10/17/25 09:01 Diazepam (Diazepam 5 Mg Tablet) 10 mg PO Q8H [facility] Stop: 10/18/25 07:01 Diazepam (Diazepam 5 Mg Tablet) 10 mg PO Q12H [facility] Stop: 10/19/25 02:31 Folic Acid (Folic Acid 1 Mg Tablet) 1 mg PO DAILY [facility] Stop: 10/19/25 08:59 Last Admin: 10/16/25 08:01 Dose: 1 mg Heparin Sodium (Porcine) (Heparin Sodium,Porcine 5,000 Unit/Ml Vial) 5,000 unit SUBCUT Q8H [facility] Last Admin: 10/16/25 11:45 Dose: 5,000 unit Hydromorphone HCl (Hydromorphone Hcl 1 Mg/Ml Syringe) 0.5 mg IVPUSH Q4H PRN; Protocol PRN Reason: Breakthrough Pain Lactated Ringer's (Lr) 1,000 mls @ 100 mls/hr IVCONT .Q10H [facility] Last Admin: 10/16/25 13:59 Dose: 100 mls/hr Piperacillin Sod/Tazobactam (Sod 3.375 gm/ Sodium Chloride) 50 mls @ 100 mls/hr IV Q6H [facility] Last Infusion: 10/16/25 08:37 Dose: Infused Vancomycin HCl 1,000 mg/ (Sodium Chloride) 270 mls @ 270 mls/hr IV Q12H [facility] Losartan Potassium (Losartan Potassium 25 Mg Tablet) 25 mg PO DAILY [facility]; Protocol Last Admin: 10/16/25 08:04 Dose: 25 mg Magnesium Hydroxide (Milk Of Magnesia 30 Ml Oral.Susp) 30 ml PO DAILY PRN PRN Reason: Constipation Magnesium Oxide (Magnesium Oxide 400 Mg Tablet) 800 mg PO BIDPC [facility] Last Admin: 10/16/25 11:42 Dose: 800 mg Melatonin (Melatonin 3 Mg Tablet) 6 mg PO BEDTIME PRN PRN Reason: Insomnia Last Admin: 10/16/25 05:15 Dose: 6 mg Multivitamins/Vitamin C (Multivitamin Tablet) 1 tab PO DAILY [facility] Stop: 10/19/25 08:59 Last Admin: 10/16/25 08:04 Dose: 1 tab Pantoprazole Sodium (Pantoprazole Sodium 40 Mg/10 Ml Vial) 40 mg IVPUSH DAILY@0630 [facility] Last Admin: 10/16/25 06:46 Dose: 40 mg Pharmacy Consult (Consult Rx Vancomycin Dosing) 1 each MISCELLANE DAILY PRN PRN Reason: Consult order Sodium Chloride (0.9 % Sodium Chloride Flush 3 Ml Syringe) 3 ml IVFLUSH QSHIFT [facility] Last Admin: 10/16/25 07:21 Dose: Not Given Temazepam (Temazepam 15 Mg Capsule) 15 mg PO BEDTIME PRN PRN Reason: Insomnia Thiamine HCl (Thiamine Hcl 100 Mg Tablet) 100 mg PO DAILY [facility] Stop: 10/19/25 08:59 Last Admin: 10/16/25 08:04 Dose: 100 mg Allergies Allergies Allergy/AdvReac Type Severity Reaction Status Date / Time No Known Allergies Allergy Verified 10/15/25 21:50 Assessment & Plan Assessment & Plan (1) Alcohol use disorder: Status: Acute Code(s): F10.90 - Alcohol use, unspecified, uncomplicated Assessment and Plan: Based on the above,electrolyte anomalies, etoh level and self report it makes sen will start Diazepam taper 10mg Q6, then Q8, then Q12, then HS and D/C--as t/w is unaware of his alcohol use and/or withdrawal history or risk hold any doses for excessive sedation or concern for respiratory depression IV thiamine 200mg BID will continue to follow Total time managing care of this patient today __35__ minutes. [facility] Past Medical History Medical History (Updated 10/16/25 @ 14:27 by Edna Nicolas CNP) Cyst of pancreas Pancreatitis Social History Social History Household Members: None Housing: Apartment Do you presently have visiting nurse or other home services: No Alcohol intake: current Patient Tobacco Use Status: Never used Tobacco Smoked in Last 30 Days: No Have you been hit, kicked, punched, or otherwise hurt by someone within the past year? If so, by whom?: No Do you feel safe in your current relationship?: Yes Is there a partner from a previous relationship who is making you feel unsafe now?: No Are you made to feel afraid or neglected: No Advance Directives: No Advance Directives Information Provided: No Do you have a plan to hurt others: No Plan Recently lost weight without trying: Yes How much weight loss: Unsure Eating poorly because of decreased appetite: No Nutrition screen score: 4 Nutrition Risks: Poor intake 0-25% >4 days
--- NOTE | 2025-10-16 15:29 | PC.NURSE ---
per pt his first person in contact is Simona Mckeon , or [phone]
[2025-10-16] MEDS: 0.9 % Sodium Chloride Flush 3 ML SYRINGE IVFLUSH ×2 (15:38→21:52)
--- NOTE | 2025-10-16 15:40 | PC.NURSE ---
pt back from MRI , antibiotic and Valium administered
--- NOTE | 2025-10-16 16:33 | PM.EVENT ---
Event Note Date of Service: 10/16/25 Event Note: [facility] with pancreatic mass no bili obstruction oncology eval Time Spent With Patient Time: Total time managing care of this patient today ____ minutes.
--- NOTE | 2025-10-16 23:50 | P.CNID_ITS ---
History of Present Illness Data of Consult Service Date: 10/15/25 Requesting physician: Magdi Michele Primary Care Provider: Unknown Physician HPI Reason for consult: right cavitary lung lesion He presents with shortness of breuth and yellowish phlegm for last three weeks. He denies TB history. He denies foreign travel He has seen a dentist and has some caries. Review of Systems 2 Review of Systems: Yes all other systems are reviewed and are negative PMFSH Past Medical History Medical History Cyst of pancreas Pancreatitis Family History Family history: reviewed and not pertinent Social History Social History Household Members: None Housing: Apartment Do you presently have visiting nurse or other home services: No Alcohol intake: current Patient Tobacco Use Status: Never used Tobacco Smoked in Last 30 Days: No Currently Displaying Signs/Symptoms of Drug Intoxication Withdrawal: No Have you been hit, kicked, punched, or otherwise hurt by someone within the past year? If so, by whom?: No Do you feel safe in your current relationship?: Yes Is there a partner from a previous relationship who is making you feel unsafe now?: No Are you made to feel afraid or neglected: No Advance Directives: No Advance Directives Information Provided: No Do you have a plan to hurt others: No Plan Recently lost weight without trying: Yes How much weight loss: Unsure Eating poorly because of decreased appetite: No Nutrition screen score: 4 Nutrition Risks: Poor intake 0-25% >4 days Meds Allergies Allergy/AdvReac Type Severity Reaction Status Date / Time No Known Allergies Allergy Verified 10/15/25 21:50 Active Medications: Current Medications Acetaminophen (Acetaminophen 325 Mg Tablet) 650 mg PO Q6H PRN PRN Reason: Pain, Mild 1-3,fever,headache Last Admin: 10/16/25 11:43 Dose: 650 mg Albuterol/Ipratropium (Albuterol/Iprat 2.5/0.5mg 3 Ml Ampul.Neb) 3 ml INHALE Q4H PRN PRN Reason: Shortness of Breath/Wheezing Amlodipine Besylate (Amlodipine Besylate 10 Mg Tablet) 10 mg PO DAILY [facility]; Protocol Last Admin: 10/16/25 08:05 Dose: 10 mg Benzonatate (Benzonatate 100 Mg Capsule) 100 mg PO TID PRN PRN Reason: Cough Calcium Carbonate (Calcium Carbonate 750 Mg Tab.Chew) 750 mg PO Q4H PRN PRN Reason: Heartburn Diazepam (Diazepam 5 Mg Tablet) 10 mg PO Q6H [facility] Stop: 10/17/25 09:01 Last Admin: 10/16/25 21:51 Dose: 10 mg Diazepam (Diazepam 5 Mg Tablet) 10 mg PO Q8H [facility] Stop: 10/18/25 07:01 Diazepam (Diazepam 5 Mg Tablet) 10 mg PO Q12H [facility] Stop: 10/19/25 02:31 Folic Acid (Folic Acid 1 Mg Tablet) 1 mg PO DAILY [facility] Stop: 10/19/25 08:59 Last Admin: 10/16/25 08:01 Dose: 1 mg Heparin Sodium (Porcine) (Heparin Sodium,Porcine 5,000 Unit/Ml Vial) 5,000 unit SUBCUT Q8H [facility] Last Admin: 10/16/25 18:02 Dose: 5,000 unit Hydromorphone HCl (Hydromorphone Hcl 1 Mg/Ml Syringe) 0.5 mg IVPUSH Q4H PRN; Protocol PRN Reason: Breakthrough Pain Lactated Ringer's (Lr) 1,000 mls @ 100 mls/hr IVCONT .Q10H [facility] Last Admin: 10/16/25 13:59 Dose: 100 mls/hr Piperacillin Sod/Tazobactam (Sod 3.375 gm/ Sodium Chloride) 50 mls @ 100 mls/hr IV Q6H [facility] Last Infusion: 10/16/25 22:30 Dose: Infused Vancomycin HCl 1,000 mg/ (Sodium Chloride) 270 mls @ 270 mls/hr IV Q12H [facility] Last Infusion: 10/16/25 17:59 Dose: Infused Losartan Potassium (Losartan Potassium 25 Mg Tablet) 25 mg PO DAILY [facility]; Protocol Last Admin: 10/16/25 08:04 Dose: 25 mg Magnesium Hydroxide (Milk Of Magnesia 30 Ml Oral.Susp) 30 ml PO DAILY PRN PRN Reason: Constipation Magnesium Oxide (Magnesium Oxide 400 Mg Tablet) 800 mg PO BIDPC [facility] Last Admin: 10/16/25 18:02 Dose: 800 mg Melatonin (Melatonin 3 Mg Tablet) 6 mg PO BEDTIME PRN PRN Reason: Insomnia Last Admin: 10/16/25 05:15 Dose: 6 mg Multivitamins/Vitamin C (Multivitamin Tablet) 1 tab PO DAILY [facility] Stop: 10/19/25 08:59 Last Admin: 10/16/25 08:04 Dose: 1 tab Pantoprazole Sodium (Pantoprazole Sodium 40 Mg/10 Ml Vial) 40 mg IVPUSH DAILY@0630 [facility] Last Admin: 10/16/25 06:46 Dose: 40 mg Pharmacy Consult (Consult Rx Vancomycin Dosing) 1 each MISCELLANE DAILY PRN PRN Reason: Consult order Sodium Chloride (0.9 % Sodium Chloride Flush 3 Ml Syringe) 3 ml IVFLUSH QSHIFT [facility] Last Admin: 10/16/25 21:52 Dose: 3 ml Temazepam (Temazepam 15 Mg Capsule) 15 mg PO BEDTIME PRN PRN Reason: Insomnia Thiamine HCl (Thiamine Hcl 100 Mg Tablet) 100 mg PO DAILY [facility] Stop: 10/19/25 08:59 Last Admin: 10/16/25 08:04 Dose: 100 mg Home Medications ?Medication ?Instructions ?Recorded ?Confirmed ?Last Taken ?Type No Known Home Meds 10/16/25 10/16/25 Un known History Physical Exam 2 Vital Signs: Vital Signs: Last Vital Signs Temp 98.4 F 10/16/25 19:42 Pulse 100 10/16/25 19:42 Resp 18 10/16/25 19:42 BP 165/96 H 10/16/25 19:42 Pulse Ox 99 10/16/25 19:42 O2 Del Method Nasal Cannula 10/16/25 19:42 O2 Flow Rate 2 10/16/25 19:42 BMI result Body Mass Index 23.8 Const: General: cooperative HEENT: Head: Yes normal to inspection Face and sinus: Yes normal facial exam Mouth: Normal oral and palatal mucosa present Teeth and gingiva: d entition normal Eyes: General: appearance normal, both eyes and all related structures P upils: Equal, round and reactive pupils present Resp: Other: decreased breath sounds bases Cardio: Rate: regular rate Rhythm: regular rhythm GI: Palpation (GI): Soft to palpation and nontender : General: Yes no CVA tenderness Back/Spine/Pelvis: Back: no CVA tenderness Skin: General skin exam: no rashes or lesions noted Neuro: General: moves all extremities Cranial nerves: Yes Equal, round and reactive pupils present Extrem: General: Yes normal to inspection Psych: Appearance: grossly normal Results Labs 10/17/25 06:09 10/17/25 06:09 Labs: Short CBC 10/16/25 Range/Units 05:10 WBC 8.1 (4.8-10.8) X10*3/uL Hgb 8.0 L (14.0-18.0) g/dl Hct 26.3 L (42.0-52.0) % Plt Count 252 (160-400) X10*3/uL BMP 10/16/25 05:10 Sodium 133 L Potassium 3.7 Chloride 101 Carbon Dioxide 24 BUN 11 Creatinine 0.88 Calcium 7.3 L D Liver Function 10/16/25 Range/Units 05:10 Total Bilirubin 0.4 (0.0-1.0) mg/dL AST 31 (5-37) U/L ALT 8 (0-40) U/L Alkaline Phosphatase 68 (39-117) U/L Albumin 2.7 L (3.5-5.0) g/dL Assessment and Plan (1) Empyema of lung: Status: Acute (2) Pneumonia: Qualifiers: Laterality: right Lung location: middle lobe of lung Pneumonia type: d ue to unspecified organism Qualified Code(s): J18.9 - Pneumonia, unspecified organism Status: Acute Plan RIght sided lung cavities Probable aspiration Zosyn covers lung aspiration/early abscess,possible ertapenem outpatient 14 day or if cant do IV po Augmentin [address] chest within the month. Check HIV . See dentist.
[2025-10-17] VITALS (10 sets, daily range): BP systolic 128–164; BP diastolic 69–94; PULSE 86–110; RESP 16–18; TEMP 36.4–39.2; O2SAT 95–99
--- NOTE | 2025-10-17 | EEG_ITS ---
History: Patient had a fall after drinking and had brief LOC about 2 weeks ago. Currently asymptomatic. Medications: Acetaminophen, Albuterol/Ipratropium, Amlodipine Besylate, Benzonatate, Calcium Carbonate, Diazepam, Folic Acid, Heparin Sodium, Hydromorphone HCl, Lactated Ringer's, Piperacillin Sod/Tazobactam, Vancomycin HCl, Thiamine HCl, Losartan Potassium, Magnesium Hydroxide, Magnesium Oxide, Melatonin, Multivitamins/Vitamin C, Pantoprazole Sodium, Sodium Chloride, Temazepam Technical Description Photic Stimulation: completed Hyperventilation: omitted Behavioral State: cooperative State of Consciousness: awake and drowsy Skull Defect: none Sedation: none Handedness: right Duration: 24 min 40 sec Description: This is a 16 channel EEG with an EKG lead. Patient is reported awake and drowsy during the tracing. Background EEG rhythm is 5-30 microvolt posteriorly and lower amplitude fast anteriorly. Photic stimulation does not produce any significant driving. Hyperventilation is unremarkable. Cardiac lead does not reveal any significant abnormality. No sharp wave spikes or paroxysmal tendency noted. Impression: Unremarkable EEG. [facility]
[2025-10-17] MEDS: Lactated Ringers 1,000 ML 100 ML IVCONT ×2 (05:11→16:38)
[2025-10-17 06:27] LABS: Hematocrit 25.6 % (42.0-52.0); Hemoglobin 7.9 g/dl (14.0-18.0); Mean Corpuscular HGB Conc 30.9 g/dl (31.0-36.0); Mean Corpuscular Hemoglobin 24.1 pg (27.0-33.0); Mean Corpuscular Volume 78.0 fL (80.0-98.0); NRBC Abs Auto 0.000 X10*3/uL (0.0-0.012); NRBC Pct Auto 0.0 /100WBC (0.0-0.2); Platelet Count 210 X10*3/uL (160-400); Red Blood Count 3.28 X10*6/uL (4.60-5.80); White Blood Count 7.8 X10*3/uL (4.8-10.8)
[2025-10-17 07:29] LABS: HBc Num1 0.13 S/CO (0.00-0.79); HBsAGNum1 0.42 S/CO (0.00-0.99); Hepatitis B Surface Antigen Negative (Negative); ~HepC Num1 0.21 S/CO (0.00-0.79); ~Hepatitis B Surface Antibody REACTIVE (Nonreactive); ~Hepatitis C Antibody Nonreactive (Nonreactive)
[2025-10-17 07:50] LABS: Alanine Aminotransferase < 6 U/L (0-40); Albumin Level 2.7 g/dL (3.5-5.0); Alkaline Phosphatase 76 U/L (39-117); Anion Gap 10 (12-20); Aspartate Amino Transferase 21 U/L (5-37); Blood Urea Nitrogen 11 mg/dL (9-16); Calcium 7.6 mg/dL (8.4-10.2); Carbon Dioxide 25 mmol/L (22-29); Chloride 102 mmol/L (96-108); Creatinine Clr Calc Pharmacy 85.4; Estimated Glomerular Filt Rate > 60; Magnesium 1.3 mg/dL (1.6-2.6); Potassium 4.3 mmol/L (3.3-5.1); Sodium 133 mmol/L (135-145); Total Protein 6.9 g/dL (6.5-8.0)
[2025-10-17] MEDS: Magnesium Sulfate/H2O 2 GM/50 ML PIGGYBACK IV (09:12)
--- NOTE | 2025-10-17 09:29 | P.CNHO_ITS ---
Subjective - Subjective Chief complaint: Cough/weakness Patient: new to practice Consult date: 10/17/25 Primary Care Provider: Unknown Physician Communications Attendant Utilized?: No - [place] Speaking HPI - Consult Narrative Reason for consult: Mass of pancreatic head Narrative: Yvon Nixon is a 60 year old male, chronic alcoholic who presented to emergency department because of cough, shortness of breath that has been ongoing for about 5 months. He also reports weight loss and progressive weakness. He says he had a fall about 2 weeks ago and since then he has been having pain his chest wall. He denies fever or chills. He denies nausea, emesis or jaundice. He has not seen a physician in several years. He is single, his sister is his healthcare proxy. He has no children. In the ED he had a CT of the chest on 10/16/2025 which revealed cavitary lesion with fluid level in area of consolidation measuring 4.8 x 4.4 cm. Surrounding consolidation measured 8.9 x 8.2 cm. There was also fatty changes in her liver, dilated common hepatic duct with abrupt cut off in the region of pancreas, MRI abdomen was recommended. MRI abdomen revealed 2.8 x 2.9 cm irregular spiculated mass in the pancreatic head causing biliary obstruction as well as obstruction of the portal vein. Findings highly suspicious for pancreatic adenocarcinoma. Heterogenous hepatic steatosis and cavitary mass in the right lung with surrounding pneumonia. Review of Systems - Constitutional Reports fatigue, Reports weakness, Reports weight loss - Cardiovascular Reports chest pain - Respiratory Reports cough - Gastrointestinal Denies abdominal pain, Denies bright, red blood in stools, Denies change in stools [facility] Medical History: Medical History (Last Reviewed 10/17/25 @ 16:18 by Shauna Holly MD) Cyst of pancreas Pancreatitis Family history: reviewed and not pertinent Social History: Social History (Last Reviewed 10/17/25 @ 16:18 by Shauna Holly MD) Living Situation History: Household Members: None Housing: Apartment Do you presently have visiting nurse or other home services: No Alcohol History Details: 1. How often do you have a drink containing alcohol?: e. 4 or more times a week 2. How many drinks containing alcohol do you have on a typical day when you are drinking?: b. 3 or 4 3. How often do you have six or more drinks on one occasion?: b. Less than monthly AUDIT-C Alcohol total score: 6 Currently Displaying Signs/Symptoms of Alcohol Withdrawal: No Tobacco History: Patient Tobacco Use Status: Never used Tobacco Smoked in Last 30 Days: No Substance Use History: Currently Displaying Signs/Symptoms of Drug Intoxication Withdrawal: No Domestic Abuse History: Have you been hit, kicked, punched, or otherwise hurt by someone within the past year? If so, by whom?: No Do you feel safe in your current relationship?: Yes Is there a partner from a previous relationship who is making you feel unsafe now?: No Are you made to feel afraid or neglected: No Advance Directives: Advance Directives: No Advance Directives Information Provided: No Homicidal Assessment: Do you have a plan to hurt others: No Plan Nutrition Assessment: Recently lost weight without trying: Yes How much weight loss: Unsure Eating poorly because of decreased appetite: No Nutrition screen score: 4 Nutrition Risks: Poor intake 0-25% >4 days Occupation Assessmet: service: No Home Medications and Allergies Current Medications: Current Medications Acetaminophen (Acetaminophen 325 Mg Tablet) 650 mg PO Q6H PRN PRN Reason: Pain, Mild 1-3,fever,headache Last Admin: 10/17/25 00:45 Dose: 650 mg Albuterol/Ipratropium (Albuterol/Iprat 2.5/0.5mg 3 Ml Ampul.Neb) 3 ml INHALE Q4H PRN PRN Reason: Shortness of Breath/Wheezing Amlodipine Besylate (Amlodipine Besylate 10 Mg Tablet) 10 mg PO DAILY [facility]; Protocol Last Admin: 10/17/25 08:03 Dose: 10 mg Benzonatate (Benzonatate 100 Mg Capsule) 100 mg PO TID PRN PRN Reason: Cough Calcium Carbonate (Calcium Carbonate 750 Mg Tab.Chew) 750 mg PO Q4H PRN PRN Reason: Heartburn Diazepam (Diazepam 5 Mg Tablet) 10 mg PO Q8H [facility] Stop: 10/18/25 07:01 Diazepam (Diazepam 5 Mg Tablet) 10 mg PO Q12H [facility] Stop: 10/19/25 02:31 Folic Acid (Folic Acid 1 Mg Tablet) 1 mg PO DAILY [facility] Stop: 10/19/25 08:59 Last Admin: 10/17/25 08:04 Dose: 1 mg Heparin Sodium (Porcine) (Heparin Sodium,Porcine 5,000 Unit/Ml Vial) 5,000 unit SUBCUT Q8H [facility] Last Admin: 10/17/25 02:39 Dose: 5,000 unit Hydromorphone HCl (Hydromorphone Hcl 1 Mg/Ml Syringe) 0.5 mg IVPUSH Q4H PRN; Protocol PRN Reason: Breakthrough Pain Lactated Ringer's (Lr) 1,000 mls @ 100 mls/hr IVCONT .Q10H [facility] Last Admin: 10/17/25 05:11 Dose: 100 mls/hr Piperacillin Sod/Tazobactam (Sod 3.375 gm/ Sodium Chloride) 50 mls @ 100 mls/hr IV Q6H [facility] Last Infusion: 10/17/25 08:32 Dose: Infused Vancomycin HCl 1,000 mg/ (Sodium Chloride) 270 mls @ 270 mls/hr IV Q12H [facility] Last Infusion: 10/17/25 06:09 Dose: Infused Magnesium Sulfate (Magnesium Sulfate/H2o) 2 gm in 50 mls @ 25 mls/hr IV ONCE ONE Stop: 10/17/25 09:48 Last Admin: 10/17/25 09:12 Dose: 25 mls/hr Losartan Potassium (Losartan Potassium 25 Mg Tablet) 25 mg PO DAILY [facility]; Protocol Last Admin: 10/17/25 08:03 Dose: 25 mg Magnesium Hydroxide (Milk Of Magnesia 30 Ml Oral.Susp) 30 ml PO DAILY PRN PRN Reason: Constipation Magnesium Oxide (Magnesium Oxide 400 Mg Tablet) 800 mg PO BIDPC [facility] Last Admin: 10/17/25 08:04 Dose: 800 mg Melatonin (Melatonin 3 Mg Tablet) 6 mg PO BEDTIME PRN PRN Reason: Insomnia Last Admin: 10/16/25 05:15 Dose: 6 mg Multivitamins/Vitamin C (Multivitamin Tablet) 1 tab PO DAILY [facility] Stop: 10/19/25 08:59 Last Admin: 10/17/25 08:04 Dose: 1 tab Pantoprazole Sodium (Pantoprazole Sodium 40 Mg/10 Ml Vial) 40 mg IVPUSH DAILY@0630 [facility] Last Admin: 10/17/25 05:25 Dose: 40 mg Pharmacy Consult (Consult Rx Vancomycin Dosing) 1 each MISCELLANE DAILY PRN PRN Reason: Consult order Sodium Chloride (0.9 % Sodium Chloride Flush 3 Ml Syringe) 3 ml IVFLUSH QSHIFT [facility] Last Admin: 10/17/25 08:13 Dose: Not Given Temazepam (Temazepam 15 Mg Capsule) 15 mg PO BEDTIME PRN PRN Reason: Insomnia Thiamine HCl (Thiamine Hcl 100 Mg Tablet) 100 mg PO DAILY [facility] Stop: 10/19/25 08:59 Last Admin: 10/17/25 08:03 Dose: 100 mg Home Medications ?Medication ?Instructions ?Recorded ?Confirmed ?Type No Known Home Meds 10/16/25 10/16/25 History Allergies Allergy/AdvReac Type Severity Reaction Status Date / Time No Known Allergies Allergy Verified 10/15/25 21:50 Physical Exam Vital signs: Vital Signs Temp 98.5 F 10/17/25 07:46 Pulse 86 10/17/25 07:46 Resp 16 10/17/25 07:46 BP 157/88 H 10/17/25 08:03 Pulse Ox 99 10/17/25 07:46 O2 Del Method Nasal Cannula 10/17/25 07:46 O2 Flow Rate 2 10/17/25 07:46 Intake & Output 10/16/25 10/17/25 10/17/25 18:59 06:59 18:59 Intake Total 1670 / 3040 1370 / 3040 50 / 50 Output Total 300 / 950 650 / 950 Balance 1370 / 2090 720 / 2090 50 / 50 Urine Output (Average ml/kg/hr) 0.36 0.79 0.79 Intake: Intake, Oral Amount 250 / 250 Intake, IV Amount 1420 / 2790 1370 / 2790 50 / 50 Magnesium Sulfate/H2O 2 gm In 50 / 50 50 ml @ 25 mls/hr IV ONCE ONE Rx#:[id number] Piperacillin Sodium/Tazobactam 100 / 200 100 / 200 50 / 50 3.375 gm In 0.9 % Sodium Chloride 50 ml @ 100 mls/hr IV Q6H [facility] Rx#:[id number] vancomycin HCL 1,000 mg In 0.9 270 / 540 270 / 540 % Sodium Chloride 250 ml @ 270 mls/hr IV Q12H [facility] Rx#: [id number] Lactated Ringers 1,000 ml @ 100 1000 / 2000 1000 / 2000 mls/hr IVCONT .Q10H [facility] Rx#: [id number] Output: Output, Urine Amount 300 / 950 650 / 950 Other: Number of Incontinent Voids 1 Urine Urinal Urine Color Nikole Last Bowel Movement 11/18/25 11/18/25 Weight 68.8 kg Weight 68.8 kg - Constitutional Present: no acute distress - Routine HEENT Exam Head: Present: normal inspection Eye: Present: EOMI, PERRL - Routine Neck Exam Present: supple. Absent: lymphadenopathy - Routine Respiratory Exam Present: decreased breath sounds. Absent: rhonchi, wheezes - Routine Cardiovascular Exam Cardiovascular: Present: RRR, S1, S2 - Routine Abdominal Exam Present: soft - Routine Extremities Exam Present: pulses intact - Routine Skin Exam Present: intact. Absent: jaundice - Routine Neurological Exam Present: alert Hem/Onc Consult Result - Labs CBC & Chem 7: 10/20/25 06:48 10/20/25 06:48 Labs: Short CBC 10/17/25 Range/Units 06:09 WBC 7.8 (4.8-10.8) X10*3/uL Hgb 7.9 L (14.0-18.0) g/dl Hct 25.6 L (42.0-52.0) % Plt Count 210 (160-400) X10*3/uL BMP 10/17/25 06:09 Sodium 133 L Potassium 4.3 Chloride 102 Carbon Dioxide 25 BUN 11 Creatinine 0.87 Calcium 7.6 L Liver Function 10/17/25 Range/Units 06:09 Total Bilirubin 0.7 (0.0-1.0) mg/dL Direct Bilirubin 0.4 (0.0-0.5) mg/dL AST 21 (5-37) U/L ALT < 6 (0-40) U/L Alkaline Phosphatase 76 (39-117) U/L Albumin 2.7 L (3.5-5.0) g/dL Assessment and Plan Patient Active problem list reviewed?: Yes (1) Mass of head of pancreas Status: Acute Assessment and plan: 1. This is a 60-year-old male who was incidentally found to have mass of pancreatic head noted on CT chest which was done to evaluate pneumonia. CT of the chest on 10/16/2025 which revealed cavitary lesion with fluid level in area of consolidation measuring 4.8 x 4.4 cm. Surrounding consolidation measured 8.9 x 8.2 cm. There was also fatty changes in her liver, dilated common hepatic duct with abrupt cut off in the region of pancreas, MRI abdomen was recommended. MRI abdomen revealed 2.8 x 2.9 cm irregular spiculated mass in the pancreatic head causing biliary obstruction as well as obstruction of the portal vein. Findings highly suspicious for pancreatic adenocarcinoma. Heterogenous hepatic steatosis and cavitary mass in the right lung with surrounding pneumonia. Above findings were discussed with the patient. He will need endoscopic ultrasound and biopsy of mass of pancreatic head. CA 19-9 is not elevated. Currently he is being treated for right lower lung pneumonia/abscess. Underlying necrotic lung tumor is also in the differential diagnosis. Repeat CT chest with IV contrast will have to be repeated. Patient was advised to follow up with oncology upon discharge. Thank you for the consultation. - Time Spent With Patient Time Spent with Patient (in minutes): 25 Additional Coding: - Additional E/M codes Complex E/M visit Add On: CPT G2211
--- NOTE | 2025-10-17 09:56 | HO.PM.IMPN ---
Subjective Subjective Date of Service: 10/17/25 Interval History: weakness, chest pain, cough Physical Exam Exam: Exam: General: AO X 3, ill-appearing, halitosis Resp: Right lower lobe crackles, no accessory muscles used CVS: S1,S2,RRR GI: soft, non tender, non distended Neuro: motor grossly intact, alert Psych: appropriate affect, appropriate insight Vital Signs: Vital Signs: Last Vital Signs Temp 98.5 F 10/17/25 07:46 Pulse 86 10/17/25 07:46 Resp 16 10/17/25 07:46 BP 157/88 H 10/17/25 08:03 Pulse Ox 99 10/17/25 07:46 O2 Del Method Nasal Cannula 10/17/25 07:46 O2 Flow Rate 2 10/17/25 07:46 BMI result Body Mass Index 23.8 Objective Data Active Medications Acetaminophen (Acetaminophen 325 Mg Tablet) 650 mg PO Q6H PRN PRN Reason: Pain, Mild 1-3,fever,headache Last Admin: 10/17/25 00:45 Dose: 650 mg Documented By: FRANCI Albuterol/Ipratropium (Albuterol/Iprat 2.5/0.5mg 3 Ml Ampul.Neb) 3 ml INHALE Q4H PRN PRN Reason: Shortness of Breath/Wheezing Amlodipine Besylate (Amlodipine Besylate 10 Mg Tablet) 10 mg PO DAILY [facility]; Protocol Last Admin: 10/17/25 08:03 Dose: 10 mg Documented By: CHRIS Benzonatate (Benzonatate 100 Mg Capsule) 100 mg PO TID PRN PRN Reason: Cough Calcium Carbonate (Calcium Carbonate 750 Mg Tab.Chew) 750 mg PO Q4H PRN PRN Reason: Heartburn Diazepam (Diazepam 5 Mg Tablet) 10 mg PO Q8H [facility] Stop: 10/18/25 07:01 Diazepam (Diazepam 5 Mg Tablet) 10 mg PO Q12H [facility] Stop: 10/19/25 02:31 Folic Acid (Folic Acid 1 Mg Tablet) 1 mg PO DAILY [facility] Stop: 10/19/25 08:59 Last Admin: 10/17/25 08:04 Dose: 1 mg Documented By: CHRIS Heparin Sodium (Porcine) (Heparin Sodium,Porcine 5,000 Unit/Ml Vial) 5,000 unit SUBCUT Q8H [facility] Last Admin: 10/17/25 02:39 Dose: 5,000 unit Documented By: FRANCI Hydromorphone HCl (Hydromorphone Hcl 1 Mg/Ml Syringe) 0.5 mg IVPUSH Q4H PRN; Protocol PRN Reason: Breakthrough Pain Lactated Ringer's (Lr) 1,000 mls @ 100 mls/hr IVCONT .Q10H [facility] Last Admin: 10/17/25 05:11 Dose: 100 mls/hr Documented By: FRANCI Piperacillin Sod/Tazobactam (Sod 3.375 gm/ Sodium Chloride) 50 mls @ 100 mls/hr IV Q6H [facility] Last Infusion: 10/17/25 08:32 Dose: Infused Documented By: CHRIS Vancomycin HCl 1,000 mg/ (Sodium Chloride) 270 mls @ 270 mls/hr IV Q12H [facility] Last Infusion: 10/17/25 06:09 Dose: Infused Documented By: FRANCI Thiamine HCl 200 mg/ Sodium (Chloride) 102 mls @ 204 mls/hr IV Q12H [facility] Losartan Potassium (Losartan Potassium 25 Mg Tablet) 25 mg PO DAILY [facility]; Protocol Last Admin: 10/17/25 08:03 Dose: 25 mg Documented By: CHRIS Magnesium Hydroxide (Milk Of Magnesia 30 Ml Oral.Susp) 30 ml PO DAILY PRN PRN Reason: Constipation Magnesium Oxide (Magnesium Oxide 400 Mg Tablet) 800 mg PO BIDPC [facility] Last Admin: 10/17/25 08:04 Dose: 800 mg Documented By: CHRIS Melatonin (Melatonin 3 Mg Tablet) 6 mg PO BEDTIME PRN PRN Reason: Insomnia Last Admin: 10/16/25 05:15 Dose: 6 mg Documented By: ALIZE-KIMBERLEY Multivitamins/Vitamin C (Multivitamin Tablet) 1 tab PO DAILY [facility] Stop: 10/19/25 08:59 Last Admin: 10/17/25 08:04 Dose: 1 tab Documented By: CHRIS Pantoprazole Sodium (Pantoprazole Sodium 40 Mg/10 Ml Vial) 40 mg IVPUSH DAILY@0630 [facility] Last Admin: 10/17/25 05:25 Dose: 40 mg Documented By: ERIC Pharmacy Consult (Consult Rx Vancomycin Dosing) 1 each MISCELLANE DAILY PRN PRN Reason: Consult order Sodium Chloride (0.9 % Sodium Chloride Flush 3 Ml Syringe) 3 ml IVFLUSH QSHIFT [facility] Last Admin: 10/17/25 08:13 Dose: Not Given Documented By: CHRIS Non-Admin Reason: IV Running Temazepam (Temazepam 15 Mg Capsule) 15 mg PO BEDTIME PRN PRN Reason: Insomnia Labs 10/17/25 06:09 10/17/25 06:09 Labs: Laboratory Results - last 24 hr 10/17/25 06:09 MCV 78.0 L MCH 24.1 L MCHC 30.9 L RDW 19.2 H Plt Count 210 MPV 10.3 Absolute Nucleated RBC 0.000 Nucleated RBC % (auto) 0.0 Anion Gap 10 L Estim Creat Clear Calc 85.4 Estimated GFR > 60 Random Glucose 133 H Calcium 7.6 L Magnesium 1.3 L* Total Bilirubin 0.7 Direct Bilirubin 0.4 AST 21 ALT < 6 Alkaline Phosphatase 76 Total Protein 6.9 Albumin 2.7 L Hep Bs Antigen Negative Hep Bs Antibody REACTIVE Hep B Core Total Ab Nonreactive Hepatitis C Ab (EIA) Nonreactive Microbiology Microbiology Results: Microbiology 10/16/25 00:58 Blood Culture - Preliminary Blood - Venous No growth after 24 hours. 10/16/25 00:58 Blood Culture - Preliminary Blood - Venous No growth after 24 hours. Assessment and Plan (1) Empyema of lung: Status: Acute Plan 60M PMH alcohol dependence presented with weakness, found to have cavitary lung lesion, uncontrolled hypertension, severe hypomagnesemia sepsis (not severe) Right lower lobe lung abscess due to alcohol dependence Continue IV vancomycin Zosyn, follow up cultures, nasal MRSA - if negative dc vanc likely 4 weeks abx Necrotic lung tumor is in differential and should be ruled out after treatment pancreatic adenocarcinoma suspected based on MR findings bili normal, no obstruction oncology appreciated, will need EUS with biopsy and PET outpatient Alcohol dependence Monitor CIWA, vitamin supplement Uncontrolled hypertension Added amlodipine and losartan, improving Severe symptomatic hypomagnesemia due to alcohol Replace and monitor magnesium reported history of seizure activity check EEG DVT prophylaxis with heparin subQ Full code reason for continued hospitalization: Severe hypomagnesemia, fevers Quality Stroke Does the patient have a stroke diagnosis?: No VTE Prior VTE?: No VTE Risk Level:: Medical - moderate - high VTE Device Contraindication: Treatment Not Indicated VTE Drug Contraindication: N/A - Med Ordered
--- NOTE | 2025-10-17 10:01 | P.CONPL_ITS ---
History of Present Illness History of Present Illness Consult date: 10/17/25 Chief complaint: Pulmonary abscess Narrative: 60-year-old gentleman with underlying history of alcohol abuse admitted on 10/16/2025 with right-sided pleuritic pain secondary to pulmonary abscess likely secondary to recurrent pulmonary aspiration. Review of Systems 2 Constitutional: Constitutional: Denies daytime sleepiness, Denies excessive sweating, Denies fatigue, Denies fever(s), Denies lethargy, Denies malaise, Denies night sweats, Denies snoring and Denies weight loss Eyes: Eyes: Denies blurry vision and Denies itchy eyes ENT: Denies nasal congestion, Denies post nasal drip, Denies sinus pain, Denies sinus pressure and Denies other ( Thrush) Cardiovascular: Cardiovascular: Denies chest pain, Denies pedal edema, Denies dyspnea, Denies orthopnea and Denies paroxysmal nocturnal dyspnea Respiratory: Respiratory: Denies cough, Denies hemoptysis, Denies excessive phlegm production, Denies dyspnea, Denies snoring and Denies wheezing Gastrointestinal: Gastrointestinal: Denies abdominal pain and Denies heartburn Musculoskeletal: Musculoskeletal: Denies myalgias, Denies arthralgias and Denies joint swelling Integumentary/Breasts: Skin/Breast: Denies rash Neurologic: Denies memory loss and Denies seizure-like activity Psychiatric: Psychiatric: Denies abnormal sleep pattern, Denies anxiety and Denies memory loss Endocrine: Endocrine: Denies excessive sweating, Denies fatigue and Denies heat intolerance Hematologic/Lymphatic: Hematologic/Lymphatic: Denies easy bruising Allergic/Immunologic: Allergic/Immunologic: Denies itchy eyes, Denies seasonal rhinorrhea and Denies wheezing PMFSH Past Medical History Medical History Cyst of pancreas Pancreatitis Family History Family history: reviewed and not pertinent Social History Social History Household Members: None Housing: Apartment Do you presently have visiting nurse or other home services: No Alcohol intake: current Patient Tobacco Use Status: Never used Tobacco Smoked in Last 30 Days: No Currently Displaying Signs/Symptoms of Drug Intoxication Withdrawal: No Have you been hit, kicked, punched, or otherwise hurt by someone within the past year? If so, by whom?: No Do you feel safe in your current relationship?: Yes Is there a partner from a previous relationship who is making you feel unsafe now?: No Are you made to feel afraid or neglected: No Advance Directives: No Advance Directives Information Provided: No Do you have a plan to hurt others: No Plan Recently lost weight without trying: Yes How much weight loss: Unsure Eating poorly because of decreased appetite: No Nutrition screen score: 4 Nutrition Risks: Poor intake 0-25% >4 days Meds Allergies Allergy/AdvReac Type Severity Reaction Status Date / Time No Known Allergies Allergy Verified 10/15/25 21:50 Active Medications: Current Medications Acetaminophen (Acetaminophen 325 Mg Tablet) 650 mg PO Q6H PRN PRN Reason: Pain, Mild 1-3,fever,headache Last Admin: 10/17/25 00:45 Dose: 650 mg Albuterol/Ipratropium (Albuterol/Iprat 2.5/0.5mg 3 Ml Ampul.Neb) 3 ml INHALE Q4H PRN PRN Reason: Shortness of Breath/Wheezing Amlodipine Besylate (Amlodipine Besylate 10 Mg Tablet) 10 mg PO DAILY [facility]; Protocol Last Admin: 10/17/25 08:03 Dose: 10 mg Benzonatate (Benzonatate 100 Mg Capsule) 100 mg PO TID PRN PRN Reason: Cough Calcium Carbonate (Calcium Carbonate 750 Mg Tab.Chew) 750 mg PO Q4H PRN PRN Reason: Heartburn Diazepam (Diazepam 5 Mg Tablet) 10 mg PO Q8H [facility] Stop: 10/18/25 07:01 Diazepam (Diazepam 5 Mg Tablet) 10 mg PO Q12H [facility] Stop: 10/19/25 02:31 Folic Acid (Folic Acid 1 Mg Tablet) 1 mg PO DAILY [facility] Stop: 10/19/25 08:59 Last Admin: 10/17/25 08:04 Dose: 1 mg Heparin Sodium (Porcine) (Heparin Sodium,Porcine 5,000 Unit/Ml Vial) 5,000 unit SUBCUT Q8H [facility] Last Admin: 10/17/25 02:39 Dose: 5,000 unit Hydromorphone HCl (Hydromorphone Hcl 1 Mg/Ml Syringe) 0.5 mg IVPUSH Q4H PRN; Protocol PRN Reason: Breakthrough Pain Lactated Ringer's (Lr) 1,000 mls @ 100 mls/hr IVCONT .Q10H [facility] Last Admin: 10/17/25 05:11 Dose: 100 mls/hr Piperacillin Sod/Tazobactam (Sod 3.375 gm/ Sodium Chloride) 50 mls @ 100 mls/hr IV Q6H [facility] Last Infusion: 10/17/25 08:32 Dose: Infused Vancomycin HCl 1,000 mg/ (Sodium Chloride) 270 mls @ 270 mls/hr IV Q12H [facility] Last Infusion: 10/17/25 06:09 Dose: Infused Thiamine HCl 200 mg/ Sodium (Chloride) 102 mls @ 204 mls/hr IV Q12H [facility] Losartan Potassium (Losartan Potassium 25 Mg Tablet) 25 mg PO DAILY [facility]; Protocol Last Admin: 10/17/25 08:03 Dose: 25 mg Magnesium Hydroxide (Milk Of Magnesia 30 Ml Oral.Susp) 30 ml PO DAILY PRN PRN Reason: Constipation Magnesium Oxide (Magnesium Oxide 400 Mg Tablet) 800 mg PO BIDPC [facility] Last Admin: 10/17/25 08:04 Dose: 800 mg Melatonin (Melatonin 3 Mg Tablet) 6 mg PO BEDTIME PRN PRN Reason: Insomnia Last Admin: 10/16/25 05:15 Dose: 6 mg Multivitamins/Vitamin C (Multivitamin Tablet) 1 tab PO DAILY [facility] Stop: 10/19/25 08:59 Last Admin: 10/17/25 08:04 Dose: 1 tab Pantoprazole Sodium (Pantoprazole Sodium 40 Mg/10 Ml Vial) 40 mg IVPUSH DAILY@0630 [facility] Last Admin: 10/17/25 05:25 Dose: 40 mg Pharmacy Consult (Consult Rx Vancomycin Dosing) 1 each MISCELLANE DAILY PRN PRN Reason: Consult order Sodium Chloride (0.9 % Sodium Chloride Flush 3 Ml Syringe) 3 ml IVFLUSH QSHIFT [facility] Last Admin: 10/17/25 08:13 Dose: Not Given Temazepam (Temazepam 15 Mg Capsule) 15 mg PO BEDTIME PRN PRN Reason: Insomnia Home Medications ?Medication ?Instructions ?Recorded ?Confirmed ?Last Taken ?Type No Known Home Meds 10/16/25 10/16/25 Un known History Physical Exam 2 Vital Signs: Vital Signs: Last Vital Signs Temp 98.5 F 10/17/25 07:46 Pulse 86 10/17/25 07:46 Resp 16 10/17/25 07:46 BP 157/88 H 10/17/25 08:03 Pulse Ox 99 10/17/25 07:46 O2 Del Method Nasal Cannula 10/17/25 07:46 O2 Flow Rate 2 10/17/25 07:46 BMI result Body Mass Index 23.8 Const: General: no acute distress and alert Nutritional Appearance: not obese Orientation/consciousness: Other orientation findings ( oriented) HEENT: Head: Yes atraumatic Eyes: General: appearance normal, both eyes and all related structures S clerae: sclerae normal EOM: EOMs intact bilaterally Neck: Neck: Yes supple Lymphatic: no lymphadenopathy noted Resp: Effort & Inspection: normal respiratory effort and no use of accessory muscles Auscultation: clear to auscultation bilaterally Cardio: Rate: regular rate Rhythm: regular rhythm Heart sounds: no gallops, no murmurs and no rubs Skin: General skin exam: other ( warm) Extrem: General: No clubbing, No cyanosis and No edema Results Laboratory Findings 10/17/25 06:09 10/17/25 06:09 Abnormal lab findings: Abnormal Labs 10/15/25 10/16/25 10/17/25 22:04 05:10 06:09 WBC 12.1 H RBC 3.85 L 3.35 L 3.28 L Hgb 9.3 L 8.0 L 7.9 L Hct 30.0 L 26.3 L 25.6 L MCV 77.9 L 78.5 L 78.0 L MCH 24.2 L 23.9 L 24.1 L MCHC 30.4 L 30.9 L RDW 19.3 H 19.4 H 19.2 H Immature Gran % (Auto) 0.5 H Neut % (Auto) 79.6 H 79.4 H Lymph % (Auto) 11.5 L 10.4 L Lymph # (Auto) 0.8 L Abs Immat Gran (auto) 0.05 H 0.04 H Absolute Neuts (auto) 9.6 H Sodium 130 L 133 L 133 L Chloride 95 L Anion Gap 10 L Random Glucose 208 H 157 H 133 H Calcium 8.0 L 7.3 L D 7.6 L Magnesium 0.9 L* 1.1 L* 1.3 L* Total Protein 8.1 H Albumin 3.2 L 2.7 L 2.7 L Microbiology: Microbiology 10/16/25 00:58 Blood - Venous Blood Culture - Preliminary No growth after 24 hours. 10/16/25 00:58 Blood - Venous Blood Culture - Preliminary No growth after 24 hours. Assessment and Plan (1) Pulmonary aspiration: Status: Acute (2) Pulmonary abscess: Status: Acute Plan Impression 60-year-old gentleman with underlying alcohol abuse admitted right- sided pleuritic pain secondary to pulmonary abscess. Recommendation: Would suggest four-week course of Augmentin with CT chest and pulmonary follow-up thereafter. Procedures Date of Service Date of Service: 10/17/25
--- NOTE | 2025-10-17 10:06 | P.PNADD_ITS ---
Subjective Subjective Date of Service: 10/17/25 Reason For Visit: Pulmonary abscess Interim History: Patient seen in follow up for concern of AUD He is awake, alert, again minimally engaged in interview. Does not recall meeting t/w yesterday. Diazepam taper initiated yesterday-tolerating well CIWA scores low -1,2 Appearing comfortable, no tremor noted. Collateral obtained from cousin Simona [phone] Simona reports patient has been drinking daily for several years, but notably increased after the of his mother in 2007 She states that over the last year patient has increased isolation, decreased appetite, worsening depression She checks on him often, several days per week She reports that he can drink up to a gallon of vodka every 2 days which he mixes with strawritas. She has noted that patient has been vomiting more frequently. Appearing weak, not caring for self. Declining to seek medical attn No history of treatment for AUD He lives alone, single--was in a brief relationship that ended over the fall when patients partner noted his drinking and witnessed patient having a seizure . Partner called cousin to express concern and stated that he was bringing patient home early from vacation. Simona reports that patient has been having 'episodes' which she believes are seizures, noting that patient will call her reporting that he woke up on the floor again, with a knot on his head or something Strong family history of AUD -including his mother. Review of Systems Acute medical concerns: Yes Review of Systems Constitutional: Reports as per HPI, Reports difficulty sleeping, Reports lethargy and Reports poor appetite Mental Status Exam Mental Status Exam Level of Consciousness: Awake and Alert Patient Behavior: Appropriate and Passive Affect Description: Calm and Blunted Speech Pattern: Clear Thought Content: positive for [place] Judgement: Fair Diagnostics Vital Signs (24Hr): Vital Signs - 24 hr 10/16/25 11:05 10/16/25 12:43 10/16/25 16:00 Temperature 100.6 F H 98.8 F 99.2 F Pulse Rate 113 H 78 Respiratory Rate 18 18 Blood Pressure 151/83 H 135/80 Pulse Oximetry 99 99 Oxygen Delivery Method Nasal Cannula Nasal Cannula Oxygen Flow Rate 2 2 10/16/25 19:42 10/17/25 00:00 10/17/25 01:57 Temperature 98.4 F 102.5 F H 102.1 F H Pulse Rate 100 100 96 Respiratory Rate 18 18 Blood Pressure 165/96 H 164/91 H Pulse Oximetry 99 99 98 Oxygen Delivery Method Nasal Cannula Nasal Cannula Nasal Cannula Oxygen Flow Rate 2 2 2 10/17/25 03:34 10/17/25 07:46 10/17/25 08:03 Temperature 99.7 F 98.5 F Pulse Rate 90 86 Respiratory Rate 18 16 Blood Pressure 128/74 157/88 H 157/88 H Pulse Oximetry 98 99 Oxygen Delivery Method Nasal Cannula Nasal Cannula Oxygen Flow Rate 2 2 BMI result Body Mass Index 23.8 Labs 10/17/25 06:09 10/17/25 06:09 Labs: Laboratory Results - last 48 hr 10/15/25 10/15/25 10/15/25 22:01 22:04 22:46 WBC 12.1 H RBC 3.85 L Hgb 9.3 L Hct 30.0 L MCV 77.9 L MCH 24.2 L MCHC 31.0 RDW 19.3 H Plt Count 335 MPV 9.8 Immature Gran % (Auto) 0.4 Neut % (Auto) 79.6 H Lymph % (Auto) 11.5 L [place] % (Auto) 6.7 Eos % (Auto) 1.1 Baso % (Auto) 0.7 Lymph # (Auto) 1.4 [place] # (Auto) 0.8 Eos # (Auto) 0.1 Baso # (Auto) 0.1 Abs Immat Gran (auto) 0.05 H Absolute Neuts (auto) 9.6 H Absolute Nucleated RBC 0.000 Nucleated RBC % (auto) 0.0 Sodium 130 L Potassium 3.6 Chloride 95 L Carbon Dioxide 22 Anion Gap 17 BUN 10 Creatinine 0.85 Estim Creat Clear Calc 87.4 Estimated GFR > 60 Random Glucose 208 H Lactic Acid Calcium 8.0 L Magnesium 0.9 L* Total Bilirubin 0.6 Direct Bilirubin AST 22 ALT 9 Alkaline Phosphatase 78 Troponin I High Sens < 2.7 Total Protein 8.1 H Albumin 3.2 L Lipase 17 Ethyl Alcohol 277 Hep Bs Antigen Hep Bs Antibody Hep B Core Total Ab Hepatitis C Ab (EIA) Influenza Type A (MIRIAM) Negative Influenza Type A (PCR) NEGATIVE Influenza Type B (MIRIAM) Negative Influenza Type B (PCR) NEGATIVE Influenza A & B Note See Note RSV RNA Qual (PCR) NEGATIVE SARS-CoV-2 RNA (RT-PCR) NEGATIVE 10/16/25 10/16/2510/17/25 00:58 05:10 06:09 WBC 8.1 7.8 RBC 3.35 L 3.28 L Hgb 8.0 L 7.9 L Hct 26.3 L 25.6 L MCV 78.5 L 78.0 L MCH 23.9 L 24.1 L MCHC 30.4 L 30.9 L RDW 19.4 H 19.2 H Plt Count 252 210 MPV 9.9 10.3 Immature Gran % (Auto) 0.5 H Neut % (Auto) 79.4 H Lymph % (Auto) 10.4 L [place] % (Auto) 6.9 Eos % (Auto) 2.2 Baso % (Auto) 0.6 Lymph # (Auto) 0.8 L [place] # (Auto) 0.6 Eos # (Auto) 0.2 Baso # (Auto) 0.1 Abs Immat Gran (auto) 0.04 H Absolute Neuts (auto) 6.4 Absolute Nucleated RBC 0.000 0.000 Nucleated RBC % (auto) 0.0 0.0 Sodium 133 L 133 L Potassium 3.7 4.3 Chloride 101 102 Carbon Dioxide 24 25 Anion Gap 12 10 L BUN 11 11 Creatinine 0.88 0.87 Estim Creat Clear Calc 84.5 85.4 Estimated GFR > 60 > 60 Random Glucose 157 H 133 H Lactic Acid 2.0 Calcium 7.3 L D 7.6 L Magnesium 1.1 L* 1.3 L* Total Bilirubin 0.4 0.7 Direct Bilirubin 0.4 AST 31 21 ALT 8 < 6 Alkaline Phosphatase 68 76 Troponin I High Sens Total Protein 6.9 6.9 Albumin 2.7 L 2.7 L Lipase Ethyl Alcohol Hep Bs Antigen Negative Hep Bs Antibody REACTIVE Hep B Core Total Ab Nonreactive Hepatitis C Ab (EIA) Nonreactive Influenza Type A (MIRIAM) Influenza Type A (PCR) Influenza Type B (MIRIAM) Influenza Type B (PCR) Influenza A & B Note RSV RNA Qual (PCR) SARS-CoV-2 RNA (RT-PCR) Imaging Radiology Impressions: ITS Impressions Abdomen MRI 10/16/25 14:19 IMPRESSION: 1. 2.8 x 2.9 cm irregular spiculated mass in the pancreatic head causing biliary obstruction as well as obstruction of the portal vein. Findings are highly suspicious for pancreatic adenocarcinoma. 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 2. Heterogeneous hepatic steatosis. 3. Cavitary mass in the right lung with surrounding pneumonia as seen on chest CT. 4. Findings were discussed with Dr. Michele by secure text message on 10/16/2025 at 3:54 PM. Electronically signed by: Ken Pino MD 10/16/2025 03:59 PM [facility] Medications Medications Current Medications Acetaminophen (Acetaminophen 325 Mg Tablet) 650 mg PO Q6H PRN PRN Reason: Pain, Mild 1-3,fever,headache Last Admin: 10/17/25 00:45 Dose: 650 mg Albuterol/Ipratropium (Albuterol/Iprat 2.5/0.5mg 3 Ml Ampul.Neb) 3 ml INHALE Q4H PRN PRN Reason: Shortness of Breath/Wheezing Amlodipine Besylate (Amlodipine Besylate 10 Mg Tablet) 10 mg PO DAILY [facility]; Protocol Last Admin: 10/17/25 08:03 Dose: 10 mg Benzonatate (Benzonatate 100 Mg Capsule) 100 mg PO TID PRN PRN Reason: Cough Calcium Carbonate (Calcium Carbonate 750 Mg Tab.Chew) 750 mg PO Q4H PRN PRN Reason: Heartburn Diazepam (Diazepam 5 Mg Tablet) 10 mg PO Q8H [facility] Stop: 10/18/25 07:01 Diazepam (Diazepam 5 Mg Tablet) 10 mg PO Q12H [facility] Stop: 10/19/25 02:31 Folic Acid (Folic Acid 1 Mg Tablet) 1 mg PO DAILY [facility] Stop: 10/19/25 08:59 Last Admin: 10/17/25 08:04 Dose: 1 mg Heparin Sodium (Porcine) (Heparin Sodium,Porcine 5,000 Unit/Ml Vial) 5,000 unit SUBCUT Q8H [facility] Last Admin: 10/17/25 02:39 Dose: 5,000 unit Hydromorphone HCl (Hydromorphone Hcl 1 Mg/Ml Syringe) 0.5 mg IVPUSH Q4H PRN; Protocol PRN Reason: Breakthrough Pain Lactated Ringer's (Lr) 1,000 mls @ 100 mls/hr IVCONT .Q10H [facility] Last Admin: 10/17/25 05:11 Dose: 100 mls/hr Piperacillin Sod/Tazobactam (Sod 3.375 gm/ Sodium Chloride) 50 mls @ 100 mls/hr IV Q6H [facility] Last Infusion: 10/17/25 08:32 Dose: Infused Vancomycin HCl 1,000 mg/ (Sodium Chloride) 270 mls @ 270 mls/hr IV Q12H [facility] Last Infusion: 10/17/25 06:09 Dose: Infused Thiamine HCl 200 mg/ Sodium (Chloride) 102 mls @ 204 mls/hr IV Q12H [facility] Losartan Potassium (Losartan Potassium 25 Mg Tablet) 25 mg PO DAILY [facility]; Protocol Last Admin: 10/17/25 08:03 Dose: 25 mg Magnesium Hydroxide (Milk Of Magnesia 30 Ml Oral.Susp) 30 ml PO DAILY PRN PRN Reason: Constipation Magnesium Oxide (Magnesium Oxide 400 Mg Tablet) 800 mg PO BIDPC [facility] Last Admin: 10/17/25 08:04 Dose: 800 mg Melatonin (Melatonin 3 Mg Tablet) 6 mg PO BEDTIME PRN PRN Reason: Insomnia Last Admin: 10/16/25 05:15 Dose: 6 mg Multivitamins/Vitamin C (Multivitamin Tablet) 1 tab PO DAILY [facility] Stop: 10/19/25 08:59 Last Admin: 10/17/25 08:04 Dose: 1 tab Pantoprazole Sodium (Pantoprazole Sodium 40 Mg/10 Ml Vial) 40 mg IVPUSH DAILY@0630 [facility] Last Admin: 10/17/25 05:25 Dose: 40 mg Pharmacy Consult (Consult Rx Vancomycin Dosing) 1 each MISCELLANE DAILY PRN PRN Reason: Consult order Sodium Chloride (0.9 % Sodium Chloride Flush 3 Ml Syringe) 3 ml IVFLUSH QSHIFT [facility] Last Admin: 10/17/25 08:13 Dose: Not Given Temazepam (Temazepam 15 Mg Capsule) 15 mg PO BEDTIME PRN PRN Reason: Insomnia Allergies Allergies Allergy/AdvReac Type Severity Reaction Status Date / Time No Known Allergies Allergy Verified 10/15/25 21:50 Assessment & Plan Assessment & Plan (1) Alcohol use disorder: Status: Acute Code(s): F10.90 - Alcohol use, unspecified, uncomplicated Assessment and Plan: * diazepam taper in place * transition to PO thiamine at discharge * 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
[2025-10-17] MEDS: Thiamine HCL 200 MG in 0.9 % Sodium Chloride 100 ML 204 MG IV ×2 (11:52→23:16)
--- NOTE | 2025-10-17 14:49 | HE.PHANOTE ---
RE: LATONYA Trough returned @16.2. Keeping the same dose of 1000 mg Q12H with predicted AUC 551 and trough 17.2. Next trough due 10/18 @1400. Will continue to monitor.
[2025-10-17 15:40] LABS: MRSA Nasal PCR NEGATIVE (Negative); SA Nasal PCR POSITIVE (Negative)
[2025-10-18] VITALS (8 sets, daily range): BP systolic 128–164; BP diastolic 60–88; PULSE 93–106; RESP 18–20; TEMP 36.8–37.7; O2SAT 92–98
[2025-10-18] MEDS: Lactated Ringers 1,000 ML 100 ML IVCONT (06:18)
[2025-10-18 07:48] LABS: Hematocrit 26.7 % (42.0-52.0); Hemoglobin 8.2 g/dl (14.0-18.0); Mean Corpuscular HGB Conc 30.7 g/dl (31.0-36.0); Mean Corpuscular Hemoglobin 24.6 pg (27.0-33.0); Mean Corpuscular Volume 79.9 fL (80.0-98.0); NRBC Abs Auto 0.000 X10*3/uL (0.0-0.012); NRBC Pct Auto 0.0 /100WBC (0.0-0.2); Platelet Count 217 X10*3/uL (160-400); Red Blood Count 3.34 X10*6/uL (4.60-5.80); White Blood Count 6.9 X10*3/uL (4.8-10.8)
[2025-10-18 08:20] LABS: Alanine Aminotransferase < 6 U/L (0-40); Albumin Level 2.7 g/dL (3.5-5.0); Alkaline Phosphatase 81 U/L (39-117); Anion Gap 10 (12-20); Aspartate Amino Transferase 21 U/L (5-37); Blood Urea Nitrogen 8 mg/dL (9-16); Calcium 8.0 mg/dL (8.4-10.2); Carbon Dioxide 24 mmol/L (22-29); Chloride 101 mmol/L (96-108); Creatinine Clr Calc Pharmacy 85.4; Estimated Glomerular Filt Rate > 60; Magnesium 1.2 mg/dL (1.6-2.6); Potassium 4.1 mmol/L (3.3-5.1); Sodium 131 mmol/L (135-145); Total Protein 7.0 g/dL (6.5-8.0)
[2025-10-18 08:33] LABS: HIV Num 1 0.09 S/CO (0.00-0.99)
[2025-10-18 09:04] LABS: HIV Num 1 0.06 S/CO (0.00-0.99)
[2025-10-18] MEDS: 0.9 % Sodium Chloride Flush 3 ML SYRINGE IVFLUSH ×2 (09:40→22:31)
--- NOTE | 2025-10-18 09:59 | P.PNIM_ITS ---
Subjective Subjective Date of Service: 10/18/25 Interval History: weakness, chest pain, cough Physical Exam 2 Vital Signs: Vital Signs: Last Vital Signs Temp 98.6 F 10/18/25 07:42 Pulse 97 10/18/25 07:42 Resp 20 10/18/25 07:42 BP 162/80 H 10/18/25 09:41 Pulse Ox 96 10/18/25 07:42 O2 Del Method Nasal Cannula 10/18/25 07:42 O2 Flow Rate 2 10/18/25 07:42 BMI result Body Mass Index 23.8 Const: General: no acute distress and alert Nutritional Appearance: not obese Orientation/consciousness: Other orientation findings ( oriented) HEENT: Head: Yes atraumatic Eyes: General: appearance normal, both eyes and all related structures S clerae: sclerae normal EOM: EOMs intact bilaterally Neck: Neck: Yes supple Lymphatic: no lymphadenopathy noted Resp: Effort & Inspection: normal respiratory effort and no use of accessory muscles Auscultation: clear to auscultation bilaterally Cardio: Rate: regular rate Rhythm: regular rhythm Heart sounds: no gallops, no murmurs and no rubs Skin: General skin exam: other ( warm) Extrem: General: No clubbing, No cyanosis and No edema Objective Data Active Medications Acetaminophen (Acetaminophen 325 Mg Tablet) 650 mg PO Q6H PRN PRN Reason: Pain, Mild 1-3,fever,headache Last Admin: 10/17/25 00:45 Dose: 650 mg Documented By: FRANCI Albuterol/Ipratropium (Albuterol/Iprat 2.5/0.5mg 3 Ml Ampul.Neb) 3 ml INHALE Q4H PRN PRN Reason: Shortness of Breath/Wheezing Amlodipine Besylate (Amlodipine Besylate 10 Mg Tablet) 10 mg PO DAILY [facility]; Protocol Last Admin: 10/18/25 09:41 Dose: 10 mg Documented By: PHANLYM Benzonatate (Benzonatate 100 Mg Capsule) 100 mg PO TID PRN PRN Reason: Cough Calcium Carbonate (Calcium Carbonate 750 Mg Tab.Chew) 750 mg PO Q4H PRN PRN Reason: Heartburn Diazepam (Diazepam 5 Mg Tablet) 10 mg PO Q12H [facility] Stop: 10/19/25 02:31 Diazepam (Diazepam 5 Mg Tablet) 10 mg PO BEDTIME [facility] Stop: 10/19/25 21:01 Folic Acid (Folic Acid 1 Mg Tablet) 1 mg PO DAILY [facility] Stop: 10/19/25 08:59 Last Admin: 10/18/25 09:41 Dose: 1 mg Documented By: ALMA Heparin Sodium (Porcine) (Heparin Sodium,Porcine 5,000 Unit/Ml Vial) 5,000 unit SUBCUT Q8H [facility] Last Admin: 10/18/25 09:42 Dose: 5,000 unit Documented By: ALMA Hydromorphone HCl (Hydromorphone Hcl 1 Mg/Ml Syringe) 0.5 mg IVPUSH Q4H PRN; Protocol PRN Reason: Breakthrough Pain Last Admin: 10/17/25 23:17 Dose: 0.5 mg Documented By: NAYELI Piperacillin Sod/Tazobactam (Sod 3.375 gm/ Sodium Chloride) 50 mls @ 100 mls/hr IV Q6H [facility] Last Admin: 10/18/25 09:35 Dose: 100 mls/hr Documented By: ALMA Thiamine HCl 200 mg/ Sodium (Chloride) 102 mls @ 204 mls/hr IV Q12H [facility] Last Infusion: 10/17/25 23:47 Dose: Infused Documented By: NAYELI Magnesium Sulfate (Magnesium Sulfate/H2o) 2 gm in 50 mls @ 25 mls/hr IV ONCE ONE Stop: 10/18/25 10:19 Losartan Potassium (Losartan Potassium 25 Mg Tablet) 25 mg PO DAILY [facility]; Protocol Last Admin: 10/18/25 09:41 Dose: 25 mg Documented By: ALMA Magnesium Hydroxide (Milk Of Magnesia 30 Ml Oral.Susp) 30 ml PO DAILY PRN PRN Reason: Constipation Magnesium Oxide (Magnesium Oxide 400 Mg Tablet) 800 mg PO BIDPC [facility] Last Admin: 10/18/25 09:41 Dose: 800 mg Documented By: ALMA Melatonin (Melatonin 3 Mg Tablet) 6 mg PO BEDTIME PRN PRN Reason: Insomnia Last Admin: 10/16/25 05:15 Dose: 6 mg Documented By: ALIZE-KIMBERLEY Multivitamins/Vitamin C (Multivitamin Tablet) 1 tab PO DAILY [facility] Stop: 10/19/25 08:59 Last Admin: 10/18/25 09:42 Dose: 1 tab Documented By: ALMA Pantoprazole Sodium (Pantoprazole Sodium 40 Mg/10 Ml Vial) 40 mg IVPUSH DAILY@0630 [facility] Last Admin: 10/18/25 06:18 Dose: 40 mg Documented By: NAYELI Sodium Chloride (0.9 % Sodium Chloride Flush 3 Ml Syringe) 3 ml IVFLUSH QSHIFT [facility] Last Admin: 10/18/25 09:40 Dose: 3 ml Documented By: ALMA Temazepam (Temazepam 15 Mg Capsule) 15 mg PO BEDTIME PRN PRN Reason: Insomnia Labs 10/18/25 07:30 10/18/25 07:30 Labs: Laboratory Results - last 24 hr 10/17/25 10/17/25 10/17/25 06:09 14:00 14:04 MCV MCH MCHC RDW Plt Count MPV Absolute Nucleated RBC Nucleated RBC % (auto) Anion Gap Estim Creat Clear Calc Estimated GFR Random Glucose Calcium Magnesium Total Bilirubin Direct Bilirubin AST ALT Alkaline Phosphatase Total Protein Albumin Nasal Screen MRSA (PCR) NEGATIVE Nasal S. aureus Screen POSITIVE A Nasal MRSA/S.aureus Interp SEE NOTE Vancomycin Trough 16.2 HIV 1&2 Ab/P24 Ag 4thGn Nonreactive 10/18/25 07:30 MCV 79.9 L MCH 24.6 L MCHC 30.7 L RDW 19.2 H Plt Count 217 MPV 9.8 Absolute Nucleated RBC 0.000 Nucleated RBC % (auto) 0.0 Anion Gap 10 L Estim Creat Clear Calc 85.4 Estimated GFR > 60 Random Glucose 151 H Calcium 8.0 L Magnesium 1.2 L* Total Bilirubin 0.7 Direct Bilirubin 0.4 AST 21 ALT < 6 Alkaline Phosphatase 81 Total Protein 7.0 Albumin 2.7 L Nasal Screen MRSA (PCR) Nasal S. aureus Screen Nasal MRSA/S.aureus Interp Vancomycin Trough HIV 1&2 Ab/P24 Ag 4thGn Nonreactive Microbiology Microbiology Results: Microbiology 10/16/25 00:58 Blood Culture - Preliminary Blood - Venous No growth after 48 hours. 10/16/25 00:58 Blood Culture - Preliminary Blood - Venous No growth after 48 hours. Assessment and Plan (1) Empyema of lung: Status: Acute Plan 60M PMH alcohol dependence presented with weakness, found to have cavitary lung lesion, uncontrolled hypertension, severe hypomagnesemia sepsis (not severe) Right lower lobe lung abscess due to alcohol dependence Continue IV Zosyn, cultures neagtive, nasal MRSA - negative - dc vanc on discharge 4 weeks augmentin (end 11/12/25) Necrotic lung tumor is in differential and should be ruled out after treatment pancreatic adenocarcinoma suspected based on MR abdomen findings bili normal, no obstruction oncology appreciated, will need EUS with biopsy and PET outpatient Alcohol dependence Monitor CIWA, vitamin supplement Uncontrolled hypertension Added amlodipine and losartan, improving Severe symptomatic hypomagnesemia due to alcohol Replace and monitor magnesium reported history of seizure activity eeg negative, outpatient follow up, hold off on AED for now DVT prophylaxis with heparin subQ Full code reason for continued hospitalization: Severe hypomagnesemia, fevers Quality Stroke Does the patient have a stroke diagnosis?: No VTE Prior VTE?: No VTE Risk Level:: Medical - moderate - high VTE Device Contraindication: Treatment Not Indicated VTE Drug Contraindication: N/A - Med Ordered
[2025-10-18] MEDS: Thiamine HCL 200 MG in 0.9 % Sodium Chloride 100 ML 204 MG IV ×2 (10:06→22:30)
[2025-10-18] MEDS: Magnesium Sulfate/H2O 2 GM/50 ML PIGGYBACK IV (10:42)
--- NOTE | 2025-10-18 12:54 | PM.HEMONCPN ---
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 He has been found to have a 2.9 spiculated mass in the head of his pancreas on MRI done recently. A tissue diagnosis is not available. He says he is beginning to feel better. He denies any pain. He has had no recent nausea or vomiting. Review of Systems - Constitutional Reports anorexia - ENT Reports system reviewed and no additional complaints, except as documented - Cardiovascular Reports shortness of breath with activity - Respiratory Reports cough, Reports excessive phlegm production, Reports dyspnea on exertion - Gastrointestinal Reports bloating, Reports feeling full early - Genitourinary Genitourinary: Reports decreased urination - Musculoskeletal Reports muscle weakness - Neurologic Denies memory loss, Denies seizure-like activity PMFSH Medical History: Medical History (Last Reviewed 10/17/25 @ 16:18 by Shauna Holly MD) Cyst of pancreas Pancreatitis Family history: reviewed and not pertinent Social History: Social History (Last Reviewed 10/17/25 @ 16:18 by Shauna Holly MD) Living Situation History: Household Members: None Housing: Apartment Do you presently have visiting nurse or other home services: No Alcohol History Details: 1. How often do you have a drink containing alcohol?: e. 4 or more times a week 2. How many drinks containing alcohol do you have on a typical day when you are drinking?: b. 3 or 4 3. How often do you have six or more drinks on one occasion?: b. Less than monthly AUDIT-C Alcohol total score: 6 Currently Displaying Signs/Symptoms of Alcohol Withdrawal: No Tobacco History: Patient Tobacco Use Status: Never used Tobacco Smoked in Last 30 Days: No Substance Use History: Currently Displaying Signs/Symptoms of Drug Intoxication Withdrawal: No Domestic Abuse History: Have you been hit, kicked, punched, or otherwise hurt by someone within the past year? If so, by whom?: No Do you feel safe in your current relationship?: Yes Is there a partner from a previous relationship who is making you feel unsafe now?: No Are you made to feel afraid or neglected: No Advance Directives: Advance Directives: No Advance Directives Information Provided: No Homicidal Assessment: Do you have a plan to hurt others: No Plan Nutrition Assessment: Recently lost weight without trying: Yes How much weight loss: Unsure Eating poorly because of decreased appetite: No Nutrition screen score: 4 Nutrition Risks: Poor intake 0-25% >4 days Home Medications and Allergies Current Medications: Current Medications Acetaminophen (Acetaminophen 325 Mg Tablet) 650 mg PO Q6H PRN PRN Reason: Pain, Mild 1-3,fever,headache Last Admin: 10/17/25 00:45 Dose: 650 mg Albuterol/Ipratropium (Albuterol/Iprat 2.5/0.5mg 3 Ml Ampul.Neb) 3 ml INHALE Q4H PRN PRN Reason: Shortness of Breath/Wheezing Amlodipine Besylate (Amlodipine Besylate 10 Mg Tablet) 10 mg PO DAILY [facility]; Protocol Last Admin: 10/18/25 09:41 Dose: 10 mg Benzonatate (Benzonatate 100 Mg Capsule) 100 mg PO TID PRN PRN Reason: Cough Calcium Carbonate (Calcium Carbonate 750 Mg Tab.Chew) 750 mg PO Q4H PRN PRN Reason: Heartburn Diazepam (Diazepam 5 Mg Tablet) 10 mg PO Q12H [facility] Stop: 10/19/25 02:31 Diazepam (Diazepam 5 Mg Tablet) 10 mg PO BEDTIME [facility] Stop: 10/19/25 21:01 Folic Acid (Folic Acid 1 Mg Tablet) 1 mg PO DAILY [facility] Stop: 10/19/25 08:59 Last Admin: 10/18/25 09:41 Dose: 1 mg Heparin Sodium (Porcine) (Heparin Sodium,Porcine 5,000 Unit/Ml Vial) 5,000 unit SUBCUT Q8H [facility] Last Admin: 10/18/25 09:42 Dose: 5,000 unit Hydromorphone HCl (Hydromorphone Hcl 1 Mg/Ml Syringe) 0.5 mg IVPUSH Q4H PRN; Protocol PRN Reason: Breakthrough Pain Last Admin: 10/17/25 23:17 Dose: 0.5 mg Piperacillin Sod/Tazobactam (Sod 3.375 gm/ Sodium Chloride) 50 mls @ 100 mls/hr IV Q6H [facility] Last Infusion: 10/18/25 10:05 Dose: Infused Thiamine HCl 200 mg/ Sodium (Chloride) 102 mls @ 204 mls/hr IV Q12H [facility] Last Infusion: 10/18/25 10:36 Dose: Infused Losartan Potassium (Losartan Potassium 25 Mg Tablet) 25 mg PO DAILY [facility]; Protocol Last Admin: 10/18/25 09:41 Dose: 25 mg Magnesium Hydroxide (Milk Of Magnesia 30 Ml Oral.Susp) 30 ml PO DAILY PRN PRN Reason: Constipation Magnesium Oxide (Magnesium Oxide 400 Mg Tablet) 800 mg PO BIDPC [facility] Last Admin: 10/18/25 09:41 Dose: 800 mg Melatonin (Melatonin 3 Mg Tablet) 6 mg PO BEDTIME PRN PRN Reason: Insomnia Last Admin: 10/16/25 05:15 Dose: 6 mg Multivitamins/Vitamin C (Multivitamin Tablet) 1 tab PO DAILY [facility] Stop: 10/19/25 08:59 Last Admin: 10/18/25 09:42 Dose: 1 tab Pantoprazole Sodium (Pantoprazole Sodium 40 Mg/10 Ml Vial) 40 mg IVPUSH DAILY@0630 [facility] Last Admin: 10/18/25 06:18 Dose: 40 mg Sodium Chloride (0.9 % Sodium Chloride Flush 3 Ml Syringe) 3 ml IVFLUSH QSHIFT [facility] Last Admin: 10/18/25 09:40 Dose: 3 ml Temazepam (Temazepam 15 Mg Capsule) 15 mg PO BEDTIME PRN PRN Reason: Insomnia Home Medications ?Medication ?Instructions ?Recorded ?Confirmed ?Type No Known Home Meds 10/16/25 10/16/25 History Allergies Allergy/AdvReac Type Severity Reaction Status Date / Time No Known Allergies Allergy Verified 10/15/25 21:50 Exam Vital signs: Vital Signs Temp 99.3 F 10/18/25 11:22 Pulse 102 H 10/18/25 11:22 Resp 20 10/18/25 11:22 BP 145/87 H 10/18/25 11:22 Pulse Ox 96 10/18/25 11:22 O2 Del Method Room Air 10/18/25 11:22 O2 Flow Rate 2 10/18/25 07:42 Intake & Output 10/17/25 10/18/25 10/18/25 18:59 06:59 18:59 Intake Total 1732 / 3294 1562 / 3294 152 / 152 Output Total 900 / 2700 1800 / 2700 Balance 832 / 594 -238 / 594 152 / 152 Urine Output (Average ml/kg/hr) 1.09 2.18 2.18 Intake: Intake, Oral Amount 480 / 840 360 / 840 Intake, IV Amount 1252 / 2454 1202 / 2454 152 / 152 Magnesium Sulfate/H2O 2 gm In 50 / 50 50 ml @ 25 mls/hr IV ONCE ONE Rx#:[id number] Piperacillin Sodium/Tazobactam 100 / 200 100 / 200 50 / 50 3.375 gm In 0.9 % Sodium Chloride 50 ml @ 100 mls/hr IV Q6H [facility] Rx#:[id number] Thiamine HCL 200 mg In 0.9 % 102 / 204 102 / 204 102 / 102 Sodium Chloride 100 ml @ 204 mls/hr IV Q12H [facility] Rx#: [id number] Lactated Ringers 1,000 ml @ 100 1000 / 2000 1000 / 2000 mls/hr IVCONT .Q10H [facility] Rx#: [id number] Output: Output, Urine Amount 900 / 2700 1800 / 2700 Other: Breakfast % Eaten 75% Lunch % Eaten 25% Eating (Feeding) Ability Independent Urine Urinal Urinal Urine Color Yellow Yellow Last Bowel Movement 10/14/25 10/14/25 Stool Bathroom Stool Amount Moderate Stool Color Brown Stool Consistency Formed Weight 68.8 kg BMI result Body Mass Index 23.8 - Constitutional Present: no acute distress - Routine HEENT Exam Head: Present: atraumatic, normal inspection - Routine Neck Exam Present: full ROM - Routine Respiratory Exam Present: decreased breath sounds, prolonged expiratory phase - Routine Cardiovascular Exam Cardiovascular: Present: RRR, S1, S2 - Routine Abdominal Exam Present: diminished bowel sounds - Routine Extremities Exam Present: normal inspection Data - Labs CBC & Chem 7: 10/18/25 07:30 10/18/25 07:30 Labs: Laboratory Last Values WBC 6.9 X10*3/uL (4.8-10.8) 10/18/25 07:30 RBC 3.34 X10*6/uL (4.60-5.80) L 10/18/25 07:30 Hgb 8.2 g/dl (14.0-18.0) L 10/18/25 07:30 Hct 26.7 % (42.0-52.0) L 10/18/25 07:30 MCV 79.9 fL (80.0-98.0) L 10/18/25 07:30 MCH 24.6 pg (27.0-33.0) L 10/18/25 07:30 MCHC 30.7 g/dl (31.0-36.0) L 10/18/25 07:30 RDW 19.2 % (11.0-16.0) H 10/18/25 07:30 Plt Count 217 X10*3/uL (160-400) 10/18/25 07:30 MPV 9.8 fL (9.4-12.4) 10/18/25 07:30 Immature Gran % (Auto) 0.5 % (0.0-0.4) H 10/16/25 05:10 Neut % (Auto) 79.4 % (45-73) H 10/16/25 05:10 Lymph % (Auto) 10.4 % (20-40) L 10/16/25 05:10 [place] % (Auto) 6.9 % (2-11) 10/16/25 05:10 Eos % (Auto) 2.2 % (0-4) 10/16/25 05:10 Baso % (Auto) 0.6 % (0-2) 10/16/25 05:10 Lymph # (Auto) 0.8 X10*3/uL (1.2-4.9) L 10/16/25 05:10 [place] # (Auto) 0.6 X10*3/uL (0.1-1.2) 10/16/25 05:10 Eos # (Auto) 0.2 X10*3/uL (0.0-0.4) 10/16/25 05:10 Baso # (Auto) 0.1 X10*3/uL (0.0-0.2) 10/16/25 05:10 Abs Immat Gran (auto) 0.04 X10*3/uL (0.00-0.03) H 10/16/25 05:10 Absolute Neuts (auto) 6.4 x10*3/uL (2.0-8.3) 10/16/25 05:10 Absolute Nucleated RBC 0.000 X10*3/uL (0.0-0.012) 10/18/25 07:30 Nucleated RBC % (auto) 0.0 /100WBC (0.0-0.2) 10/18/25 07:30 Sodium 131 mmol/L (135-145) L 10/18/25 07:30 Potassium 4.1 mmol/L (3.3-5.1) 10/18/25 07:30 Chloride 101 mmol/L (96-108) 10/18/25 07:30 Carbon Dioxide 24 mmol/L (22-29) 10/18/25 07:30 Anion Gap 10 (12-20) L 10/18/25 07:30 BUN 8 mg/dL (9-16) L 10/18/25 07:30 Creatinine 0.87 mg/dL (0.5-1.4) 10/18/25 07:30 Estim Creat Clear Calc 85.4 10/18/25 07:30 Estimated GFR > 60 10/18/25 07:30 Random Glucose 151 mg/dL (60-115) H 10/18/25 07:30 Lactic Acid 2.0 mmol/L (0.5-2.0) 10/16/25 00:58 Calcium 8.0 mg/dL (8.4-10.2) L 10/18/25 07:30 Magnesium 1.2 mg/dL (1.6-2.6) L* 10/18/25 07:30 Total Bilirubin 0.7 mg/dL (0.0-1.0) 10/18/25 07:30 Direct Bilirubin 0.4 mg/dL (0.0-0.5) 10/18/25 07:30 AST 21 U/L (5-37) 10/18/25 07:30 ALT < 6 U/L (0-40) 10/18/25 07:30 Alkaline Phosphatase 81 U/L (39-117) 10/18/25 07:30 Troponin I High Sens < 2.7 ng/L (<3.5-35.0) 10/15/25 22:04 Total Protein 7.0 g/dL (6.5-8.0) 10/18/25 07:30 Albumin 2.7 g/dL (3.5-5.0) L 10/18/25 07:30 Lipase 17 U/L (8-78) 10/15/25 22:04 Nasal Screen MRSA (PCR) NEGATIVE (Negative) 10/17/25 14:04 Nasal S. aureus Screen POSITIVE (Negative) A 10/17/25 14:04 Nasal MRSA/S.aureus Interp SEE NOTE 10/17/25 14:04 Vancomycin Trough 16.2 mcg/mL (10.0-20.0) 10/17/25 14:00 Ethyl Alcohol 277 mg/dL 10/15/25 22:04 Hep Bs Antigen Negative (Negative) 10/17/25 06:09 Hep Bs Antibody REACTIVE (Nonreactive) 10/17/25 06:09 Hep B Core Total Ab Nonreactive (Nonreactive) 10/17/25 06:09 Hepatitis C Ab (EIA) Nonreactive (Nonreactive) 10/17/25 06:09 HIV 1&2 Ab/P24 Ag 4thGn Nonreactive (Nonreactive) 10/18/25 07:30 Influenza Type A (MIRIAM) Negative (Negative) 10/15/25 22:01 Influenza Type A (PCR) NEGATIVE (Negative) 10/15/25 22:46 Influenza Type B (MIRIAM) Negative (Negative) 10/15/25 22:01 Influenza Type B (PCR) NEGATIVE (Negative) 10/15/25 22:46 Influenza A & B Note See Note 10/15/25 22:01 RSV RNA Qual (PCR) NEGATIVE (Negative) 10/15/25 22:46 SARS-CoV-2 RNA (RT-PCR) NEGATIVE (Negative) 10/15/25 22:46 - Imaging Radiologist's impression: ITS Impressions Abdomen MRI 10/16/25 14:19 IMPRESSION: 1. 2.8 x 2.9 cm irregular spiculated mass in the pancreatic head causing biliary obstruction as well as obstruction of the portal vein. Findings are highly suspicious for pancreatic adenocarcinoma. 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 2. Heterogeneous hepatic steatosis. 3. Cavitary mass in the right lung with surrounding pneumonia as seen on chest CT. 4. Findings were discussed with Dr. Michele by secure text message on 10/16/2025 at 3:54 PM. Electronically signed by: Ken Pino MD 10/16/2025 03:[address] [facility] Assessment and Plan Patient Active problem list reviewed?: Yes (1) Mass of head of pancreas Status: Acute Assessment and plan: The evaluation of this problem must await the resolution of the pneumonia and medical stability. I will follow him with you over the weekend. - Time Spent With Patient Time Spent with Patient (in minutes): 15
--- NOTE | 2025-10-18 16:19 | MHC.CM.PN ---
Addendum entered by Alicia Mar 10/19/25 10:41: IMM DELIVERED 10/17/25 PT USES A CPAP FOR DME PT CONFIRMED HE HAS NO PCP, BROCHURE PROVIDED HE DECLINED A HCP PT WILL NEED LYFT TRANSPORT Original Note: PT LIVES ALONE AND IS INDEPENDENT AT BASELINE DCP PENDING RECOVERY CONSULT/REFERRALS CM FOLLOWING
[2025-10-19] VITALS (8 sets, daily range): BP systolic 117–164; BP diastolic 64–93; PULSE 81–108; RESP 16–18; TEMP 36.6–37.8; O2SAT 93–98
[2025-10-19 07:22] LABS: Hematocrit 25.2 % (42.0-52.0); Hemoglobin 7.7 g/dl (14.0-18.0); Mean Corpuscular HGB Conc 30.6 g/dl (31.0-36.0); Mean Corpuscular Hemoglobin 24.1 pg (27.0-33.0); Mean Corpuscular Volume 79.0 fL (80.0-98.0); NRBC Abs Auto 0.000 X10*3/uL (0.0-0.012); NRBC Pct Auto 0.0 /100WBC (0.0-0.2); Platelet Count 256 X10*3/uL (160-400); Red Blood Count 3.19 X10*6/uL (4.60-5.80); White Blood Count 6.6 X10*3/uL (4.8-10.8)
[2025-10-19 07:46] LABS: Anion Gap 10 (12-20); Blood Urea Nitrogen 7 mg/dL (9-16); Calcium 8.3 mg/dL (8.4-10.2); Carbon Dioxide 25 mmol/L (22-29); Chloride 101 mmol/L (96-108); Creatinine Clr Calc Pharmacy 76.6; Estimated Glomerular Filt Rate > 60; Magnesium 1.2 mg/dL (1.6-2.6); Potassium 4.1 mmol/L (3.3-5.1); Sodium 132 mmol/L (135-145)
--- NOTE | 2025-10-19 09:48 | HO.PM.IMPN ---
Subjective Subjective Date of Service: 10/19/25 Interval History: weakness Physical Exam Vital Signs: Vital Signs: Last Vital Signs Temp 99.6 F 10/19/25 07:29 Pulse 108 H 10/19/25 07:29 Resp 18 10/19/25 07:29 BP 151/86 H 10/19/25 07:29 Pulse Ox 98 10/19/25 07:29 O2 Del Method Nasal Cannula 10/19/25 07:29 O2 Flow Rate 1.0 10/19/25 07:29 BMI result Body Mass Index 23.8 Const: General: no acute distress and alert Nutritional Appearance: not obese Orientation/consciousness: Other orientation findings ( oriented) HEENT: Head: Yes atraumatic Eyes: General: appearance normal, both eyes and all related structures Sclerae: sclerae normal EOM: EOMs intact bilaterally Neck: Neck: Yes supple Lymphatic: no lymphadenopathy noted Resp: Effort & Inspection: normal respiratory effort and no use of accessory muscles Auscultation: clear to auscultation bilaterally Cardio: Rate: regular rate Rhythm: regular rhythm Heart sounds: no gallops, no murmurs and no rubs Skin: General skin exam: other ( warm) Extrem: General: No clubbing, No cyanosis and No edema Objective Data Active Medications Acetaminophen (Acetaminophen 325 Mg Tablet) 650 mg PO Q6H PRN PRN Reason: Pain, Mild 1-3,fever,headache Last Admin: 10/17/25 00:45 Dose: 650 mg Documented By: FRANCI Albuterol/Ipratropium (Albuterol/Iprat 2.5/0.5mg 3 Ml Ampul.Neb) 3 ml INHALE Q4H PRN PRN Reason: Shortness of Breath/Wheezing Amlodipine Besylate (Amlodipine Besylate 10 Mg Tablet) 10 mg PO DAILY [facility]; Protocol Last Admin: 10/19/25 09:08 Dose: 10 mg Documented By: PHANLYM Benzonatate (Benzonatate 100 Mg Capsule) 100 mg PO TID PRN PRN Reason: Cough Calcium Carbonate (Calcium Carbonate 750 Mg Tab.Chew) 750 mg PO Q4H PRN PRN Reason: Heartburn Diazepam (Diazepam 5 Mg Tablet) 10 mg PO BEDTIME [facility] Stop: 10/19/25 21:01 Heparin Sodium (Porcine) (Heparin Sodium,Porcine 5,000 Unit/Ml Vial) 5,000 unit SUBCUT Q8H [facility] Last Admin: 10/19/25 01:51 Dose: 5,000 unit Documented By: NAYELI Hydromorphone HCl (Hydromorphone Hcl 1 Mg/Ml Syringe) 0.5 mg IVPUSH Q4H PRN; Protocol PRN Reason: Breakthrough Pain Last Admin: 10/17/25 23:17 Dose: 0.5 mg Documented By: NAYELI Piperacillin Sod/Tazobactam (Sod 3.375 gm/ Sodium Chloride) 50 mls @ 100 mls/hr IV Q6H [facility] Last Admin: 10/19/25 09:09 Dose: 100 mls/hr Documented By: ALMA Thiamine HCl 200 mg/ Sodium (Chloride) 102 mls @ 204 mls/hr IV Q12H [facility] Last Infusion: 10/18/25 23:05 Dose: Infused Documented By: NAYELI Losartan Potassium (Losartan Potassium 25 Mg Tablet) 25 mg PO DAILY [facility]; Protocol Last Admin: 10/19/25 09:07 Dose: 25 mg Documented By: ALMA Magnesium Hydroxide (Milk Of Magnesia 30 Ml Oral.Susp) 30 ml PO DAILY PRN PRN Reason: Constipation Magnesium Oxide (Magnesium Oxide 400 Mg Tablet) 800 mg PO BIDPC [facility] Last Admin: 10/19/25 09:08 Dose: 800 mg Documented By: ALMA Melatonin (Melatonin 3 Mg Tablet) 6 mg PO BEDTIME PRN PRN Reason: Insomnia Last Admin: 10/16/25 05:15 Dose: 6 mg Documented By: ALIZE-MATELSY Sodium Chloride (0.9 % Sodium Chloride Flush 3 Ml Syringe) 3 ml IVFLUSH QSHIFT [facility] Last Admin: 10/19/25 09:17 Dose: Not Given Documented By: ALMA Non-Admin Reason: Previously Administered Temazepam (Temazepam 15 Mg Capsule) 15 mg PO BEDTIME PRN PRN Reason: Insomnia Labs 10/19/25 07:03 10/19/25 07:03 Labs: Laboratory Results - last 24 hr 10/19/25 07:03 MCV 79.0 L MCH 24.1 L MCHC 30.6 L RDW 19.4 H Plt Count 256 MPV 10.6 Absolute Nucleated RBC 0.000 Nucleated RBC % (auto) 0.0 Anion Gap 10 L Estim Creat Clear Calc 76.6 Estimated GFR > 60 Random Glucose 197 H Calcium 8.3 L Magnesium 1.2 L* Assessment and Plan (1) Empyema of lung: Status: Acute Plan 60M PMH alcohol dependence presented with weakness, found to have cavitary lung lesion, uncontrolled hypertension, severe hypomagnesemia sepsis (not severe) Right lower lobe lung abscess due to alcohol dependence Continue IV Zosyn, cultures neagtive, nasal MRSA - negative - dced vanc on discharge 4 weeks augmentin (end 11/12/25) Necrotic lung tumor is in differential and should be ruled out after treatment pancreatic adenocarcinoma suspected based on MR abdomen findings bili normal, no obstruction oncology appreciated, will need EUS with biopsy and PET outpatient Alcohol dependence Monitor CIWA, vitamin supplement, no withdrawal currently Uncontrolled hypertension Added amlodipine and losartan (will increase to 50mg), improving Severe symptomatic hypomagnesemia due to alcohol Replace and monitor magnesium reported history of seizure activity eeg negative, outpatient follow up, hold off on AED for now DVT prophylaxis with heparin subQ Full code reason for continued hospitalization: Severe hypomagnesemia Quality Stroke Does the patient have a stroke diagnosis?: No VTE Prior VTE?: No VTE Risk Level:: Medical - moderate - high VTE Device Contraindication: Treatment Not Indicated VTE Drug Contraindication: N/A - Med Ordered
[2025-10-19] MEDS: Thiamine HCL 200 MG in 0.9 % Sodium Chloride 100 ML 204 MG IV ×2 (10:24→22:16)
[2025-10-19] MEDS: Magnesium Sulfate/H2O 2 GM/50 ML PIGGYBACK IV (11:01)
--- NOTE | 2025-10-19 11:03 | PM.HEMONCPN ---
Medical Summary - Medical Summary Date of Service: 10/19/25 Primary Care Provider: Unknown Physician Arcade Technician Utilized?: No - Occitan Speaking Interval History Interval history: Yvon Nixon is a 60 year old male who was admitted for a right lung pneumonia in the context of alcoholism. He has been found to have a 2.9 spiculated mass in the head of his pancreas on MRI done recently. A tissue diagnosis is not available. He says he is beginning to feel better. He denies any pain. He has had no recent nausea or vomiting. Review of Systems - Constitutional Reports anorexia - Cardiovascular Reports shortness of breath with activity - Respiratory Reports pain with cough - Neurologic Denies memory loss, Denies seizure-like activity PMFSH Medical History: Medical History (Last Reviewed 10/17/25 @ 16:18 by Shauna Holly MD) Cyst of pancreas Pancreatitis Family history: reviewed and not pertinent Social History: Social History (Last Reviewed 10/17/25 @ 16:18 by Shauna Holly MD) Living Situation History: Household Members: None Housing: Apartment Do you presently have visiting nurse or other home services: No Alcohol History Details: 1. How often do you have a drink containing alcohol?: e. 4 or more times a week 2. How many drinks containing alcohol do you have on a typical day when you are drinking?: b. 3 or 4 3. How often do you have six or more drinks on one occasion?: b. Less than monthly AUDIT-C Alcohol total score: 6 Currently Displaying Signs/Symptoms of Alcohol Withdrawal: No Tobacco History: Patient Tobacco Use Status: Never used Tobacco Smoked in Last 30 Days: No Substance Use History: Currently Displaying Signs/Symptoms of Drug Intoxication Withdrawal: No Domestic Abuse History: Have you been hit, kicked, punched, or otherwise hurt by someone within the past year? If so, by whom?: No Do you feel safe in your current relationship?: Yes Is there a partner from a previous relationship who is making you feel unsafe now?: No Are you made to feel afraid or neglected: No Advance Directives: Advance Directives: No Advance Directives Information Provided: No Homicidal Assessment: Do you have a plan to hurt others: No Plan Nutrition Assessment: Recently lost weight without trying: Yes How much weight loss: Unsure Eating poorly because of decreased appetite: No Nutrition screen score: 4 Nutrition Risks: Poor intake 0-25% >4 days Occupation Assessmet: service: No Home Medications and Allergies Current Medications: Current Medications Acetaminophen (Acetaminophen 325 Mg Tablet) 650 mg PO Q6H PRN PRN Reason: Pain, Mild 1-3,fever,headache Last Admin: 10/17/25 00:45 Dose: 650 mg Albuterol/Ipratropium (Albuterol/Iprat 2.5/0.5mg 3 Ml Ampul.Neb) 3 ml INHALE Q4H PRN PRN Reason: Shortness of Breath/Wheezing Amlodipine Besylate (Amlodipine Besylate 10 Mg Tablet) 10 mg PO DAILY [facility]; Protocol Last Admin: 10/19/25 09:08 Dose: 10 mg Benzonatate (Benzonatate 100 Mg Capsule) 100 mg PO TID PRN PRN Reason: Cough Calcium Carbonate (Calcium Carbonate 750 Mg Tab.Chew) 750 mg PO Q4H PRN PRN Reason: Heartburn Diazepam (Diazepam 5 Mg Tablet) 10 mg PO BEDTIME [facility] Stop: 10/19/25 21:01 Heparin Sodium (Porcine) (Heparin Sodium,Porcine 5,000 Unit/Ml Vial) 5,000 unit SUBCUT Q8H [facility] Last Admin: 10/19/25 11:01 Dose: 5,000 unit Hydromorphone HCl (Hydromorphone Hcl 1 Mg/Ml Syringe) 0.5 mg IVPUSH Q4H PRN; Protocol PRN Reason: Breakthrough Pain Last Admin: 10/17/25 23:17 Dose: 0.5 mg Piperacillin Sod/Tazobactam (Sod 3.375 gm/ Sodium Chloride) 50 mls @ 100 mls/hr IV Q6H [facility] Last Admin: 10/19/25 09:09 Dose: 100 mls/hr Thiamine HCl 200 mg/ Sodium (Chloride) 102 mls @ 204 mls/hr IV Q12H [facility] Last Infusion: 10/19/25 10:55 Dose: Infused Losartan Potassium (Losartan Potassium 50 Mg Tablet) 50 mg PO DAILY [facility]; Protocol Magnesium Hydroxide (Milk Of Magnesia 30 Ml Oral.Susp) 30 ml PO DAILY PRN PRN Reason: Constipation Magnesium Oxide (Magnesium Oxide 400 Mg Tablet) 800 mg PO BIDPC [facility] Last Admin: 10/19/25 09:08 Dose: 800 mg Melatonin (Melatonin 3 Mg Tablet) 6 mg PO BEDTIME PRN PRN Reason: Insomnia Last Admin: 10/16/25 05:15 Dose: 6 mg Sodium Chloride (0.9 % Sodium Chloride Flush 3 Ml Syringe) [facility] Last Admin: 10/19/25 09:17 Dose: Not Given Temazepam (Temazepam 15 Mg Capsule) 15 mg PO BEDTIME PRN PRN Reason: Insomnia Home Medications ?Medication ?Instructions ?Recorded ?Confirmed ?Type No Known Home Meds 10/16/25 10/16/25 History Allergies Allergy/AdvReac Type Severity Reaction Status Date / Time No Known Allergies Allergy Verified 10/15/25 21:50 Exam Vital signs: Vital Signs Temp 99.6 F 10/19/25 07:29 Pulse 108 H 10/19/25 07:29 Resp 18 10/19/25 07:29 BP 151/86 H 10/19/25 07:29 Pulse Ox 98 10/19/25 07:29 O2 Del Method Nasal Cannula 10/19/25 07:29 O2 Flow Rate 1.0 10/19/25 07:29 Intake & Output 10/18/25 10/19/25 10/19/25 18:59 06:59 18:59 Intake Total 1752 / 2194 442 / 2194 102 / 102 Output Total 650 / 1550 900 / 1550 Balance 1102 / 644 -458 / 644 102 / 102 Urine Output (Average ml/kg/hr) 0.79 1.09 1.09 Intake: Intake, Oral Amount 500 / 740 240 / 740 Intake, IV Amount 1252 / 1454 202 / 1454 102 / 102 Magnesium Sulfate/H2O 2 gm In 50 / 50 50 ml @ 25 mls/hr IV ONCE ONE Rx#:[id number] Piperacillin Sodium/Tazobactam 100 / 200 100 / 200 3.375 gm In 0.9 % Sodium Chloride 50 ml @ 100 mls/hr IV Q6H [facility] Rx#:[id number] Thiamine HCL 200 mg In 0.9 % 102 / 204 102 / 204 102 / 102 Sodium Chloride 100 ml @ 204 mls/hr IV Q12H [facility] Rx#: [id number] Lactated Ringers 1,000 ml @ 100 1000 / 1000 mls/hr IVCONT .Q10H [facility] Rx#: [id number] Output: Output, Urine Amount 650 / 1550 900 / 1550 Other: Lunch % Eaten 50% Dinner % Eaten 25% Eating (Feeding) Ability Independent Urine Urinal Urinal Urine Color Yellow Yellow Last Bowel Movement 10/18/25 10/19/25 Stool Incontinent Stool Amount Moderate Stool Color Dark Brown Stool Consistency Loose Weight 68.8 kg BMI result Body Mass Index 23.8 - Constitutional Present: no acute distress - Routine HEENT Exam Head: Present: atraumatic, normal inspection - Routine Neck Exam Present: full ROM - Routine Respiratory Exam Present: decreased breath sounds, prolonged expiratory phase - Routine Cardiovascular Exam Cardiovascular: Present: RRR, S1, S2 - Routine Abdominal Exam Present: diminished bowel sounds - Routine Extremities Exam Present: normal inspection Data - Labs CBC & Chem 7: 10/19/25 07:03 10/19/25 07:03 - Imaging Radiologist's impression: ITS Impressions Abdomen MRI 10/16/25 14:19 IMPRESSION: 1. 2.8 x 2.9 cm irregular spiculated mass in the pancreatic head causing biliary obstruction as well as obstruction of the portal vein. Findings are highly suspicious for pancreatic adenocarcinoma. 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 2. Heterogeneous hepatic steatosis. 3. Cavitary mass in the right lung with surrounding pneumonia as seen on chest CT. 4. Findings were discussed with Dr. Michele by secure text message on 10/16/2025 at 3:54 PM. Electronically signed by: Ken Pino MD 10/16/2025 03:59 PM [facility] Assessment and Plan Patient Active problem list reviewed?: Yes (1) Mass of head of pancreas Status: Acute Assessment and plan: The evaluation of this problem must await the resolution of the pneumonia and medical stability. I will follow him with you over the weekend. - Time Spent With Patient Time Spent with Patient (in minutes): 15
[2025-10-19] MEDS: 0.9 % Sodium Chloride Flush 3 ML SYRINGE IVFLUSH (22:20)
[2025-10-20 03:08] VITALS: BP 150/80; PULSE 93; RESP 18; TEMP 36.6; O2SAT 97
[2025-10-20] MEDS: 0.9 % Sodium Chloride Flush 3 ML SYRINGE IVFLUSH ×2 (06:58→15:08)
[2025-10-20 07:58] LABS: Hematocrit 27.8 % (42.0-52.0); Hemoglobin 8.4 g/dl (14.0-18.0); Mean Corpuscular HGB Conc 30.2 g/dl (31.0-36.0); Mean Corpuscular Hemoglobin 24.6 pg (27.0-33.0); Mean Corpuscular Volume 81.5 fL (80.0-98.0); NRBC Abs Auto 0.000 X10*3/uL (0.0-0.012); NRBC Pct Auto 0.0 /100WBC (0.0-0.2); Platelet Count 353 X10*3/uL (160-400); Red Blood Count 3.41 X10*6/uL (4.60-5.80); White Blood Count 6.9 X10*3/uL (4.8-10.8)
[2025-10-20 08:00] VITALS: BP 169/92; PULSE 102; RESP 17; TEMP 37.2; O2SAT 95
[2025-10-20 08:20] LABS: Anion Gap 11 (12-20); Blood Urea Nitrogen 9 mg/dL (9-16); Calcium 8.8 mg/dL (8.4-10.2); Carbon Dioxide 25 mmol/L (22-29); Chloride 102 mmol/L (96-108); Creatinine Clr Calc Pharmacy 65.2; Estimated Glomerular Filt Rate > 60; Magnesium 1.5 mg/dL (1.6-2.6); Potassium 4.4 mmol/L (3.3-5.1); Sodium 134 mmol/L (135-145)
[2025-10-20] MEDS: Thiamine HCL 200 MG in 0.9 % Sodium Chloride 100 ML 204 MG IV ×2 (10:41→21:27)
[2025-10-20 11:47] VITALS: BP 146/85; PULSE 96; RESP 17; TEMP 37.1; O2SAT 96
--- NOTE | 2025-10-20 12:24 | MHC.CM.PN ---
Patient is not yet medically cleared for dc (IV ABX, IV Thiamine); home is the goal and CM will continue to follow.
--- NOTE | 2025-10-20 14:52 | HO.ADDICTPRO ---
Subjective Subjective Date of Service: 10/20/25 Reason For Visit: Pulmonary abscess Interim History: Patient seen in follow up for AUD and withdrawal management Sleeping upon approach, wakes easily to voice. He is a bit more engaged compared to previous assessments. Diazepam taper completed last evening. CIWA scores 0. Will d/c order He appears comfortable, weak, however mentation much improved. Patient asking questions related to current admission and what he is supposed to do for follow up T/W inquired about goals related to alcohol use. He stated that his goal is to stay away from it When asked to share if he has been thinking about how to do that, he stated that he did not feel it would be an issue because I never get withdrawal . This headline writer offered to review resources left for him by instrumentation and controls designer--patient politely declined Stating, I would like to do this by myself . Labs reviewed-Mg up to 1.5 Diagnostics Vital Signs (24Hr): Vital Signs - 24 hr 10/19/25 15:25 10/19/25 20:00 10/19/25 23:26 Temperature 100.0 F 98.3 F 97.9 F Pulse Rate 81 90 86 Respiratory Rate 18 18 18 Blood Pressure 117/67 145/82 H 164/92 H Pulse Oximetry 93 97 97 Oxygen Delivery Method Room Air Room Air Nasal Cannula 10/19/25 23:31 10/20/25 03:08 10/20/25 08:00 Temperature 97.9 F 99.0 F Pulse Rate 93 102 H Respiratory Rate 18 18 17 Blood Pressure 150/80 H 169/92 H Pulse Oximetry 97 95 Oxygen Delivery Method Nasal Cannula Room Air 10/20/25 11:47 Temperature 98.7 F Pulse Rate 96 Respiratory Rate 17 Blood Pressure 146/85 H Pulse Oximetry 96 Oxygen Delivery Method Room Air BMI result Body Mass Index 23.8 Labs 10/20/25 06:48 10/20/25 06:48 Labs: Laboratory Results - last 48 hr 10/16/25 10/17/25 10/19/25 08:21 06:09 07:03 WBC 6.6 RBC 3.19 L Hgb 7.7 L Hct 25.2 L MCV 79.0 L MCH 24.1 L MCHC 30.6 L RDW 19.4 H Plt Count 256 MPV 10.6 Absolute Nucleated RBC 0.000 Nucleated RBC % (auto) 0.0 Sodium 132 L Potassium 4.1 Chloride 101 Carbon Dioxide 25 Anion Gap 10 L BUN 7 L Creatinine 0.97 Estim Creat Clear Calc 76.6 Estimated GFR > 60 Random Glucose 197 H Calcium 8.3 L Magnesium 1.2 L* CA 19-9 Antigen 6 Ur L.pneumophila Ag Not Detected 10/20/25 06:48 WBC 6.9 RBC 3.41 L Hgb 8.4 L Hct 27.8 L MCV 81.5 MCH 24.6 L MCHC 30.2 L RDW 19.5 H Plt Count 353 D MPV 11.0 Absolute Nucleated RBC 0.000 Nucleated RBC % (auto) 0.0 Sodium 134 L Potassium 4.4 Chloride 102 Carbon Dioxide 25 Anion Gap 11 L BUN 9 Creatinine 1.14 Estim Creat Clear Calc 65.2 Estimated GFR > 60 Random Glucose 153 H Calcium 8.8 D Magnesium 1.5 L CA 19-9 Antigen Ur L.pneumophila Ag Imaging Radiology Impressions: ITS Impressions Abdomen MRI 10/16/25 14:19 IMPRESSION: 1. 2.8 x 2.9 cm irregular spiculated mass in the pancreatic head causing biliary obstruction as well as obstruction of the portal vein. Findings are highly suspicious for pancreatic adenocarcinoma. 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 2. Heterogeneous hepatic steatosis. 3. Cavitary mass in the right lung with surrounding pneumonia as seen on chest CT. 4. Findings were discussed with Dr. Michele by secure text message on 10/16/2025 at 3:54 PM. Electronically signed by: Ken Pino MD 10/16/2025 03:59 PM [facility] Medications Medications Current Medications Acetaminophen (Acetaminophen 325 Mg Tablet) 650 mg PO Q6H PRN PRN Reason: Pain, Mild 1-3,fever,headache Last Admin: 10/17/25 00:45 Dose: 650 mg Albuterol/Ipratropium (Albuterol/Iprat 2.5/0.5mg 3 Ml Ampul.Neb) 3 ml INHALE Q4H PRN PRN Reason: Shortness of Breath/Wheezing Amlodipine Besylate (Amlodipine Besylate 10 Mg Tablet) 10 mg PO DAILY [facility]; Protocol Last Admin: 10/20/25 08:21 Dose: 10 mg Benzonatate (Benzonatate 100 Mg Capsule) 100 mg PO TID PRN PRN Reason: Cough Calcium Carbonate (Calcium Carbonate 750 Mg Tab.Chew) 750 mg PO Q4H PRN PRN Reason: Heartburn Heparin Sodium (Porcine) (Heparin Sodium,Porcine 5,000 Unit/Ml Vial) 5,000 unit SUBCUT Q8H [facility] Last Admin: 10/20/25 10:42 Dose: 5,000 unit Hydromorphone HCl (Hydromorphone Hcl 1 Mg/Ml Syringe) 0.5 mg IVPUSH Q4H PRN; Protocol PRN Reason: Breakthrough Pain Last Admin: 10/17/25 23:17 Dose: 0.5 mg Piperacillin Sod/Tazobactam (Sod 3.375 gm/ Sodium Chloride) 50 mls @ 100 mls/hr IV Q6H [facility] Last Infusion: 10/20/25 08:52 Dose: Infused Thiamine HCl 200 mg/ Sodium (Chloride) 102 mls @ 204 mls/hr IV Q12H [facility] Last Infusion: 10/20/25 11:30 Dose: Infused Losartan Potassium (Losartan Potassium 50 Mg Tablet) 50 mg PO DAILY [facility]; Protocol Last Admin: 10/20/25 08:21 Dose: 50 mg Magnesium Hydroxide (Milk Of Magnesia 30 Ml Oral.Susp) 30 ml PO DAILY PRN PRN Reason: Constipation Magnesium Oxide (Magnesium Oxide 400 Mg Tablet) 800 mg PO BIDPC [facility] Last Admin: 10/20/25 08:21 Dose: 800 mg Melatonin (Melatonin 3 Mg Tablet) 6 mg PO BEDTIME PRN PRN Reason: Insomnia Last Admin: 10/16/25 05:15 Dose: 6 mg Sodium Chloride (0.9 % Sodium Chloride Flush 3 Ml Syringe) 3 ml IVFLUSH QSHIFT [facility] Last Admin: 10/20/25 06:58 Dose: 3 ml Temazepam (Temazepam 15 Mg Capsule) 15 mg PO BEDTIME PRN PRN Reason: Insomnia Allergies Allergies Allergy/AdvReac Type Severity Reaction Status Date / Time No Known Allergies Allergy Verified 10/15/25 21:50 Assessment & Plan Assessment & Plan (1) Alcohol use disorder: Status: Acute Code(s): F10.90 - Alcohol use, unspecified, uncomplicated Assessment and Plan: no withdrawal-taper completed. Will d/c CIWA transition to PO thiamine prior to d/c patient declines AMOR, or appt for AUD treatment follow up encouraged to review resources when he would like, and reach out should he have any questions no additional follow up required at this time Total time managing care of this patient today _25___ minutes.
--- NOTE | 2025-10-20 15:48 | P.PNIM_ITS ---
Subjective Subjective Date of Service: 10/20/25 Interval History: No acute issues overnight. Breathing slowly improving Review of Systems Denies chest pain Denies shortness of breath Denies nausea vomiting diarrhea Denies fever chills Physical Exam 2 Vital Signs: Vital Signs: Last Vital Signs Temp 98.7 F 10/20/25 11:47 Pulse 96 10/20/25 11:47 Resp 17 10/20/25 11:47 BP 146/85 H 10/20/25 11:47 Pulse Ox 96 10/20/25 11:47 O2 Del Method Room Air 10/20/25 11:47 O2 Flow Rate 1.5 10/19/25 11:51 BMI result Body Mass Index 23.8 Const: Other: Awake alert no acute distress Resp: Other: Diminished throughout with scattered crackles right mid lung washburn Cardio: Other: No S4; positive S1-S2; no S3 murmurs rubs or gallops GI: Other: Soft nontender nondistended normoactive bowel sounds Extrem: Other: No edema bilaterally Objective Data Active Medications Acetaminophen (Acetaminophen 325 Mg Tablet) 650 mg PO Q6H PRN PRN Reason: Pain, Mild 1-3,fever,headache Last Admin: 10/17/25 00:45 Dose: 650 mg Documented By: FRANCI Albuterol/Ipratropium (Albuterol/Iprat 2.5/0.5mg 3 Ml Ampul.Neb) 3 ml INHALE Q4H PRN PRN Reason: Shortness of Breath/Wheezing Amlodipine Besylate (Amlodipine Besylate 10 Mg Tablet) 10 mg PO DAILY [facility]; Protocol Last Admin: 10/20/25 08:21 Dose: 10 mg Documented By: ALEXI Benzonatate (Benzonatate 100 Mg Capsule) 100 mg PO TID PRN PRN Reason: Cough Calcium Carbonate (Calcium Carbonate 750 Mg Tab.Chew) 750 mg PO Q4H PRN PRN Reason: Heartburn Heparin Sodium (Porcine) (Heparin Sodium,Porcine 5,000 Unit/Ml Vial) 5,000 unit SUBCUT Q8H [facility] Last Admin: 10/20/25 10:42 Dose: 5,000 unit Documented By: ALEXI Hydromorphone HCl (Hydromorphone Hcl 1 Mg/Ml Syringe) 0.5 mg IVPUSH Q4H PRN; Protocol PRN Reason: Breakthrough Pain Last Admin: 10/17/25 23:17 Dose: 0.5 mg Documented By: NAYELI Piperacillin Sod/Tazobactam (Sod 3.375 gm/ Sodium Chloride) 50 mls @ 100 mls/hr IV Q6H [facility] Last Infusion: 10/20/25 15:40 Dose: Infused Documented By: ALEXI Thiamine HCl 200 mg/ Sodium (Chloride) 102 mls @ 204 mls/hr IV Q12H [facility] Last Infusion: 10/20/25 11:30 Dose: Infused Documented By: ALEXI Losartan Potassium (Losartan Potassium 50 Mg Tablet) 50 mg PO DAILY [facility]; Protocol Last Admin: 10/20/25 08:21 Dose: 50 mg Documented By: ALEXI Magnesium Hydroxide (Milk Of Magnesia 30 Ml Oral.Susp) 30 ml PO DAILY PRN PRN Reason: Constipation Magnesium Oxide (Magnesium Oxide 400 Mg Tablet) 800 mg PO BIDPC [facility] Last Admin: 10/20/25 08:21 Dose: 800 mg Documented By: ALEXI Melatonin (Melatonin 3 Mg Tablet) 6 mg PO BEDTIME PRN PRN Reason: Insomnia Last Admin: 10/16/25 05:15 Dose: 6 mg Documented By: ALIZE-MATELSY Sodium Chloride (0.9 % Sodium Chloride Flush 3 Ml Syringe) [facility] Last Admin: 10/20/25 15:08 Dose: 3 ml Documented By: ALEXI Temazepam (Temazepam 15 Mg Capsule) 15 mg PO BEDTIME PRN PRN Reason: Insomnia Labs 10/20/25 06:48 10/20/25 06:48 Labs: Laboratory Results - last 24 hr 10/16/25 10/20/25 08:21 06:48 MCV 81.5 MCH 24.6 L MCHC 30.2 L RDW 19.5 H Plt Count 353 D MPV 11.0 Absolute Nucleated RBC 0.000 Nucleated RBC % (auto) 0.0 Anion Gap 11 L Estim Creat Clear Calc 65.2 Estimated GFR > 60 Random Glucose 153 H Calcium 8.8 D Magnesium 1.5 L Ur L.pneumophila Ag Not Detected Assessment and Plan (1) Pulmonary abscess: Status: Acute (2) Mass of head of pancreas: Status: Acute Plan 60M PMH alcohol dependence presented with weakness, found to have cavitary lung lesion, uncontrolled hypertension, severe hypomagnesemia 1. Right lower lobe lung abscess -Zosyn(5) cultures neagtive, nasal MRSA - negative - dced vanc -on discharge 4 weeks augmentin (end 11/12/25) -we will need repeat imaging after treatment complete 2.Pancreatic adenocarcinoma(suspected based on MR abdomen findings) -we will need outpatient workup once treatment for 1. Complete 3.Alcohol dependence -CIWA DC by addiction Medicine -follow clinical recommendations 4.Hypertension (improved control since admit) -continue current therapies -adjust as clinically indicated heparin subQ Full code reason for continued hospitalization: Severe hypomagnesemia Quality Stroke Does the patient have a stroke diagnosis?: No VTE Prior VTE?: No VTE Risk Level:: Medical - moderate - high VTE Device Contraindication: Treatment Not Indicated VTE Drug Contraindication: N/A - Med Ordered
[2025-10-20 16:00] VITALS: BP 139/84; PULSE 96; RESP 18; TEMP 36.6; O2SAT 97
[2025-10-20 18:57] VITALS: BP 138/75; PULSE 91; RESP 18; TEMP 37; O2SAT 96
[2025-10-20 22:56] VITALS: BP 161/87; PULSE 96; RESP 18; TEMP 37.2; O2SAT 99
[2025-10-20 22:58] LABS: Strep Pneumo Ag urine Not Detected (Not Detected)
[2025-10-21] MEDS: 0.9 % Sodium Chloride Flush 3 ML SYRINGE IVFLUSH ×4 (02:01→22:52)
[2025-10-21 02:57] VITALS: BP 151/86; PULSE 100; RESP 18; TEMP 37.1; O2SAT 97
[2025-10-21 07:01] LABS: MANUAL DIFF FLAG NO
[2025-10-21 07:12] LABS: Hematocrit 25.7 % (42.0-52.0); Hemoglobin 7.8 g/dl (14.0-18.0); Imm Gran Abs Auto 0.03 X10*3/uL (0.00-0.03); Imm Gran Pct Auto 0.4 % (0.0-0.4); Lymphocytes Absolute Auto 0.9 X10*3/uL (1.2-4.9); Mean Corpuscular HGB Conc 30.4 g/dl (31.0-36.0); Mean Corpuscular Hemoglobin 24.6 pg (27.0-33.0); Mean Corpuscular Volume 81.1 fL (80.0-98.0); NRBC Abs Auto 0.000 X10*3/uL (0.0-0.012); NRBC Pct Auto 0.0 /100WBC (0.0-0.2); Platelet Count 307 X10*3/uL (160-400); Red Blood Count 3.17 X10*6/uL (4.60-5.80); White Blood Count 6.8 X10*3/uL (4.8-10.8)
[2025-10-21 07:33] LABS: Alanine Aminotransferase < 6 U/L (0-40); Albumin Level 3.0 g/dL (3.5-5.0); Alkaline Phosphatase 96 U/L (39-117); Anion Gap 11 (12-20); Aspartate Amino Transferase 25 U/L (5-37); Blood Urea Nitrogen 9 mg/dL (9-16); Calcium 8.7 mg/dL (8.4-10.2); Carbon Dioxide 24 mmol/L (22-29); Chloride 102 mmol/L (96-108); Creatinine Clr Calc Pharmacy 72.9; Estimated Glomerular Filt Rate > 60; Potassium 4.2 mmol/L (3.3-5.1); Sodium 133 mmol/L (135-145); Total Protein 7.4 g/dL (6.5-8.0)
[2025-10-21 07:34] VITALS: BP 162/87; PULSE 80; RESP 20; TEMP 37; O2SAT 98
[2025-10-21] MEDS: Thiamine HCL 200 MG in 0.9 % Sodium Chloride 100 ML 204 MG IV ×2 (10:02→22:43)
[2025-10-21 11:19] VITALS: BP 133/80; PULSE 92; RESP 20; TEMP 37; O2SAT 97
[2025-10-21 12:00] LABS: Magnesium 1.3 mg/dL (1.6-2.6)
[2025-10-21 12:53] LABS: Mycoplasma Pneumoniae - IgG 1.41 (<=0.90); Mycoplasma Pneumoniae - IgM 309 U/mL (<770)
--- NOTE | 2025-10-21 14:25 | P.PNIM_ITS ---
Subjective Subjective Date of Service: 10/21/25 Interval History: Still feels lousy with shortness of breath with minimal movement Review of Systems Denies chest pain Denies shortness of breath Denies nausea vomiting diarrhea Denies fever chills Physical Exam 2 Vital Signs: Vital Signs: Last Vital Signs Temp 98.6 F 10/21/25 11:19 Pulse 92 10/21/25 11:19 Resp 20 10/21/25 11:19 BP 133/80 10/21/25 11:19 Pulse Ox 97 10/21/25 11:19 O2 Del Method Room Air 10/21/25 11:19 O2 Flow Rate 1.5 10/19/25 11:51 BMI result Body Mass Index 23.8 Const: Other: Awake alert no acute distress Resp: Other: Diminished throughout with scattered crackles right mid lung washburn Cardio: Other: No S4; positive S1-S2; no S3 murmurs rubs or gallops GI: Other: Soft nontender nondistended normoactive bowel sounds Extrem: Other: No edema bilaterally Objective Data Active Medications Acetaminophen (Acetaminophen 325 Mg Tablet) 650 mg PO Q6H PRN PRN Reason: Pain, Mild 1-3,fever,headache Last Admin: 10/17/25 00:45 Dose: 650 mg Documented By: FRANCI Albuterol/Ipratropium (Albuterol/Iprat 2.5/0.5mg 3 Ml Ampul.Neb) 3 ml INHALE Q4H PRN PRN Reason: Shortness of Breath/Wheezing Amlodipine Besylate (Amlodipine Besylate 10 Mg Tablet) 10 mg PO DAILY [facility]; Protocol Last Admin: 10/21/25 08:17 Dose: 10 mg Documented By: CAMILA Benzonatate (Benzonatate 100 Mg Capsule) 100 mg PO TID PRN PRN Reason: Cough Last Admin: 10/21/25 08:22 Dose: 100 mg Documented By: CAMILA Calcium Carbonate (Calcium Carbonate 750 Mg Tab.Chew) 750 mg PO Q4H PRN PRN Reason: Heartburn Heparin Sodium (Porcine) (Heparin Sodium,Porcine 5,000 Unit/Ml Vial) 5,000 unit SUBCUT Q8H [facility] Last Admin: 10/21/25 10:03 Dose: 5,000 unit Documented By: CAMILA Piperacillin Sod/Tazobactam (Sod 3.375 gm/ Sodium Chloride) 50 mls @ 100 mls/hr IV Q6H [facility] Last Admin: 10/21/25 14:16 Dose: 100 mls/hr Documented By: CAMILA Thiamine HCl 200 mg/ Sodium (Chloride) 102 mls @ 204 mls/hr IV Q12H [facility] Last Infusion: 10/21/25 10:36 Dose: Infused Documented By: CAMILA Losartan Potassium (Losartan Potassium 50 Mg Tablet) 50 mg PO DAILY [facility]; Protocol Last Admin: 10/21/25 08:17 Dose: 50 mg Documented By: CAMILA Magnesium Hydroxide (Milk Of Magnesia 30 Ml Oral.Susp) 30 ml PO DAILY PRN PRN Reason: Constipation Magnesium Oxide (Magnesium Oxide 400 Mg Tablet) 800 mg PO BIDPC [facility] Last Admin: 10/21/25 08:17 Dose: 800 mg Documented By: CAMILA Melatonin (Melatonin 3 Mg Tablet) 6 mg PO BEDTIME PRN PRN Reason: Insomnia Last Admin: 10/20/25 20:28 Dose: 6 mg Documented By: GRAYSON Sodium Chloride (0.9 % Sodium Chloride Flush 3 Ml Syringe) 3 ml IVFLUSH QSHIFT [facility] Last Admin: 10/21/25 14:16 Dose: 3 ml Documented By: CAMILA Labs 10/21/25 06:29 10/21/25 06:29 Labs: Laboratory Results - last 24 hr 10/16/25 10/16/25 10/21/25 05:10 08:21 06:29 MCV 81.1 MCH 24.6 L MCHC 30.4 L RDW 19.1 H Plt Count 307 MPV 10.2 Immature Gran % (Auto) 0.4 Neut % (Auto) 70.6 Lymph % (Auto) 13.8 L [place] % (Auto) 8.5 Eos % (Auto) 5.7 H Baso % (Auto) 1.0 Lymph # (Auto) 0.9 L [place] # (Auto) 0.6 Eos # (Auto) 0.4 Baso # (Auto) 0.1 Abs Immat Gran (auto) 0.03 Absolute Neuts (auto) 4.8 Absolute Nucleated RBC 0.000 Nucleated RBC % (auto) 0.0 Anion Gap 11 L Estim Creat Clear Calc 72.9 Estimated GFR > 60 Fasting Glucose 215 H Calcium 8.7 Magnesium Total Bilirubin 0.4 AST 25 ALT < 6 Alkaline Phosphatase 96 Total Protein 7.4 Albumin 3.0 L Mycoplasma pneumon IgG 1.41 H Mycoplasma pneumon IgM 309 Ur Strep pneumoniae Ag Not Detected 10/21/25 11:27 MCV MCH MCHC RDW Plt Count MPV Immature Gran % (Auto) Neut % (Auto) Lymph % (Auto) [place] % (Auto) Eos % (Auto) Baso % (Auto) Lymph # (Auto) [place] # (Auto) Eos # (Auto) Baso # (Auto) Abs Immat Gran (auto) Absolute Neuts (auto) Absolute Nucleated RBC Nucleated RBC % (auto) Anion Gap Estim Creat Clear Calc Estimated GFR Fasting Glucose Calcium Magnesium 1.3 L* Total Bilirubin AST ALT Alkaline Phosphatase Total Protein Albumin Mycoplasma pneumon IgG Mycoplasma pneumon IgM Ur Strep pneumoniae Ag Microbiology Microbiology Results: Microbiology 10/16/25 00:58 Blood Culture - Final Blood - Venous No growth after 5 days. 10/16/25 00:58 Blood Culture - Final Blood - Venous No growth after 5 days. Assessment and Plan (1) Pulmonary abscess: Status: Acute (2) Pneumonia: Status: Acute Plan 60M PMH alcohol dependence presented with weakness, found to have cavitary lung lesion, uncontrolled hypertension, severe hypomagnesemia 1. Right lower lobe lung abscess -Zosyn(6) cultures neagtive, nasal MRSA - negative - dced vanc -on discharge 4 weeks augmentin (end 11/12/25) -we will need repeat imaging after treatment complete 2.Pancreatic adenocarcinoma(suspected based on MR abdomen findings) -we will need outpatient workup once treatment for 1. Complete 3.Alcohol dependence -CIWA DC by addiction Medicine -follow clinical recommendations 4.Hypertension (improved control since admit) -continue current therapies -adjust as clinically indicated heparin subQ Full code reason for continued hospitalization: Severe hypomagnesemia Quality Stroke Does the patient have a stroke diagnosis?: No VTE Prior VTE?: No VTE Risk Level:: Medical - moderate - high VTE Device Contraindication: Treatment Not Indicated VTE Drug Contraindication: N/A - Med Ordered
[2025-10-21] MEDS: Magnesium Sulfate/H2O 2 GM/50 ML PIGGYBACK IV (15:19)
[2025-10-21 15:31] VITALS: BP 149/84; PULSE 86; RESP 18; TEMP 36.3; O2SAT 98
[2025-10-21 19:16] VITALS: BP 144/83; PULSE 89; RESP 16; TEMP 37.7; O2SAT 97
[2025-10-21 23:44] VITALS: BP 150/80; PULSE 95; RESP 16; TEMP 37.2; O2SAT 97
[2025-10-22 03:26] VITALS: BP 165/94; PULSE 76; RESP 16; TEMP 37.1; O2SAT 98
[2025-10-22 06:04] LABS: MANUAL DIFF FLAG NO
[2025-10-22 06:08] LABS: Hematocrit 26.1 % (42.0-52.0); Hemoglobin 7.9 g/dl (14.0-18.0); Imm Gran Abs Auto 0.03 X10*3/uL (0.00-0.03); Imm Gran Pct Auto 0.4 % (0.0-0.4); Lymphocytes Absolute Auto 0.8 X10*3/uL (1.2-4.9); Mean Corpuscular HGB Conc 30.3 g/dl (31.0-36.0); Mean Corpuscular Hemoglobin 24.2 pg (27.0-33.0); Mean Corpuscular Volume 79.8 fL (80.0-98.0); NRBC Abs Auto 0.000 X10*3/uL (0.0-0.012); NRBC Pct Auto 0.0 /100WBC (0.0-0.2); Platelet Count 328 X10*3/uL (160-400); Red Blood Count 3.27 X10*6/uL (4.60-5.80); White Blood Count 7.0 X10*3/uL (4.8-10.8)
[2025-10-22 06:26] LABS: Alanine Aminotransferase 8 U/L (0-40); Albumin Level 3.0 g/dL (3.5-5.0); Alkaline Phosphatase 104 U/L (39-117); Anion Gap 11 (12-20); Aspartate Amino Transferase 31 U/L (5-37); Blood Urea Nitrogen 8 mg/dL (9-16); Calcium 8.7 mg/dL (8.4-10.2); Carbon Dioxide 25 mmol/L (22-29); Chloride 100 mmol/L (96-108); Creatinine Clr Calc Pharmacy 71.5; Estimated Glomerular Filt Rate > 60; Magnesium 1.5 mg/dL (1.6-2.6); Potassium 4.2 mmol/L (3.3-5.1); Sodium 132 mmol/L (135-145); Total Protein 7.6 g/dL (6.5-8.0)
[2025-10-22 08:00] VITALS: BP 157/89; PULSE 107; RESP 20; TEMP 37.2; O2SAT 95
[2025-10-22] MEDS: 0.9 % Sodium Chloride Flush 3 ML SYRINGE IVFLUSH (08:53)
[2025-10-22] MEDS: Magnesium Sulfate/H2O 2 GM/50 ML PIGGYBACK IV (09:52)
[2025-10-22 12:00] VITALS: BP 117/71; PULSE 105; RESP 16; TEMP 37.1; O2SAT 96
[2025-10-22] MEDS: Thiamine HCL 200 MG in 0.9 % Sodium Chloride 100 ML 204 MG IV (12:34)
--- NOTE | 2025-10-22 13:19 | MHC.CM.PN ---
Patient is not yet medically cleared for dc; home is the goal and CM will continue to follow.
--- NOTE | 2025-10-22 14:21 | PM.DS ---
DS: Providers Provider Date of Service: 10/22/25 Date of admission: 10/16/25 02:12 Date of discharge: 10/22/25 Primary care physician: Unknown Physician Consults: 10/16/25 02:11 Consult to Infectious Diseases Routine Consulting Provider: [facility] [place] Infectious Disease Center Reason for consultation: lung abscess Consult to Pulmonology Routine Consulting Provider: [facility] [place] Pulmonology Services Reason for consultation: cavitary lung lesion 10/16/25 09:40 Addiction Medicine Provider Routine Consulting Provider: Addiction Covering Reason for consultation: ETOH 10/16/25 16:31 Consult to Hematology / Oncology Routine Consulting Provider: [facility] [place] Oncology/Hematology Reason for consultation: pancreas and lung masses, ?best diagnostic approach DS: Diagnosis Discharge Diagnosis (1) Pulmonary abscess: Status: Acute (2) Pneumonia: Status: Acute DS: Summary Hospital Course Hospital Course: 60-year-old male with a past medical history of alcohol use disorder presented to the hospital with a chief complaint of cough and chest pain. Patient reports that he drinks alcohol on regular basis. About 2 weeks ago he had a fall and lost consciousness. Since then has been having pain on his chest wall; Also has been having cough which has been gradually worsening. Denies any fevers. Denies any GI or symptoms. Per ER team, patient has reproducible chest wall pain; chest x-ray showed right sided pneumonia; exam grossly nonfocal. CT head showed no acute findings; breathing comfortably; blood pressure is stable; on labs noted 2 hypomagnesemia, hyponatremia-repleted; CT chest was done which showed right middle lobe lung abscess/necrotic tumor. Hospital course Patient was admitted to telemetry where monitor failed to demonstrate any acute dysrhythmias. He was started on Zosyn and tolerated well. CTA of the chest demonstrated an abnormality in the tail of the pancreas which prompted an MRI of abdomen. MRI demonstrated an irregular spiculated mass of the pancreatic head measuring 2.8 x 2.9 cm. Seen in consultation by Oncology who recommended treatment of cavitary lesion and follow up thereafter. He was seen in consultation by ID who recommended 28 days of Augmentin. He will follow up with the Oncology Clinic as an outpatient Time Attestation Discharge Coordination Time (in mins): 35 Quality: Safe Use of Opioids Does Pt have an Active Cancer Diagnosis on the Problem List?: No Quality: Stroke Does the patient have a stroke diagnosis?: No Physical Exam Vital Signs: Vital Signs: Last Vital Signs Temp 98.8 F 10/22/25 12:00 Pulse 105 H 10/22/25 12:00 Resp 16 10/22/25 12:00 BP 117/71 10/22/25 12:00 Pulse Ox 96 10/22/25 12:00 O2 Del Method Room Air 10/22/25 12:00 O2 Flow Rate 1.5 10/19/25 11:51 BMI result Body Mass Index 23.8 Const: Other: Awake alert no acute distress Resp: Other: Diminished throughout with scattered crackles right mid lung [place] Cardio: Other: No S4; positive S1-S2; no S3 murmurs rubs or gallops GI: Other: Soft nontender nondistended normoactive bowel sounds Extrem: Other: No edema bilaterally DS: Data Data Completed and Pending Labs on day of discharge: Laboratory Results - last 24 hr 10/22/25 05:55 WBC 7.0 RBC 3.27 L Hgb 7.9 L Hct 26.1 L MCV 79.8 L MCH 24.2 L MCHC 30.3 L RDW 19.0 H Plt Count 328 MPV 10.1 Immature Gran % (Auto) 0.4 Neut % (Auto) 73.9 H Lymph % (Auto) 11.6 L [place] % (Auto) 8.0 Eos % (Auto) 4.8 H Baso % (Auto) 1.3 Lymph # (Auto) 0.8 L [place] # (Auto) 0.6 Eos # (Auto) 0.3 Baso # (Auto) 0.1 Abs Immat Gran (auto) 0.03 Absolute Neuts (auto) 5.2 Absolute Nucleated RBC 0.000 Nucleated RBC % (auto) 0.0 Sodium 132 L Potassium 4.2 Chloride 100 Carbon Dioxide 25 Anion Gap 11 L BUN 8 L Creatinine 1.04 Estim Creat Clear Calc 71.5 Estimated GFR > 60 Fasting Glucose 299 H Calcium 8.7 Magnesium 1.5 L Total Bilirubin 0.3 AST 31 ALT 8 Alkaline Phosphatase 104 Total Protein 7.6 Albumin 3.0 L Discharge Plan Discharge Anticipated Discharge Date/Time: 10/22/25 14:15 Patient Disposition: Home, Self-Care Discharge Diagnosis: Pulmonary abscess Referrals: Physician,Unknown J [Primary Care Provider, Medical] - 1 Week Discharge Medications: New losartan 50 mg Tablet 50 mg PO DAILY Qty: 30 0RF Protocol: Hold for SBP< HOLD for SBP < : 90 magnesium oxide 400 mg (241.3 mg magnesium) Tablet 800 mg PO BIDPC Qty: 60 0RF amlodipine 10 mg Tablet 10 mg PO DAILY Qty: 30 0RF Protocol: Hold for SBP< HOLD for SBP < : 90 amoxicillin-pot clavulanate 875-125 mg tablet 1 tab PO BID Qty: 56 0RF Discharge Orders: Discharge Order (Routine); Ordered 10/22/25 Ordered By: Layton Sol Diet: Advance to usual diet Activity on Discharge: As tolerated Stand Alone Forms: Patient Portal Discharge page Print Language: Albanian Care Plan Goals: Take Augmentin 875 twice daily for 28 days. Health Concerns: He has been started on amlodipine losartan and magnesium. Take as prescribed Plan of Treatment: Follow up with Oncology after completion of antibiotics. They will call you with the appointment Assessment: See discharge summary
--- NOTE | 2025-10-22 14:30 | MHC.CM.PN ---
Patient has been medically cleared for dc to home today self care. A LYFT has been arranged for 3PM today to transport Patient to home. IMM was addressed with Patient at bedside.
--- NOTE | 2025-11-10 14:50 | MHC.HEMONC ---
Triage- called pt to book f/u w/ Dr Canela. LVM to call me back.
--- NOTE | 2025-11-18 07:43 | P.CDIM_ITS ---
PROVIDER RESPONSE TEXT: To clarify, the appropriate diagnosis supported by the clinical indicators: Sepsis is/was present and is a clinical diagnosis QUERY TEXT: PHYSICIAN'S DOCUMENTATION REQUEST Date of Query: 11/11/2025 07:24 AM EST Patient Name: Yvon Nixon Admit Date: 10/16/2025 Dear Layton Sol DO, A review of the medical record indicates additional documentation may be needed. Please review below and update the documentation accordingly. Documentation on progress note dated 10/19/25 included the diagnosis of sepsis. The patient's infectious clinical indicators include: WBC 12.1 temperature 100.6 pulse 95 Discharge summary did not mention Sepsis Recognized standard criteria for this condition and other infectious definitions includes: Sepsis Systemic manifestations of infection, with 2 or more SIRS criteria which include: Fever > 100.4?F or hypothermia < 96.8?F Leukocytosis - WBC > 12,000 or leukopenia, WBC < 4,000, or > 10% bands Tachycardia- > 90 beats/minute Tachypnea- RR > 20 breaths/minute or PaCO2 < 32mmHg Source: [employer]ck Manual 2013 Documentation should include the known or suspected organism, and the underlying infection, such as UTI or pneumonia Based on the above information and the recognized standard for sepsis, could you please clarify if this diagnoses is still accurate and reflective of the patient's condition to ensure quality of the medical record. Sepsis is/was present and is a clinical diagnosis After study, Sepsis has been ruled out Other (explain) Clinically unable to determine (explain) Thank you, Jessika Shaikh RN Use of terms such as suspected, likely, concern for, or probable (associated with a specific diagnosis that is being evaluated, monitored, or treated as if it exists) are acceptable and can be coded in the inpatient setting, when documented at the time of discharge. Please use your independent medical judgment in providing your response. THIS QUERY IS PART OF THE PERMANENT MEDICAL RECORD
== END 2025-10-22 15:03 | disposition home or self-care (01) | DRG 871 ==
LOC: HO.ED 23:42 → HO.EDOVER 10-16 02:51 → HO.IMC 10-16 08:07
PROVIDERS: Internal Medicine; Nurse Practitioner Psychiatric/Mental Health; Physician Assistant; Admitting Provider Hospitalist; Emergency Provider Emergency Medicine; Visit Provider Hospitalist
DX: A41.9 Sepsis, unspecified organism (principal); J18.9 Pneumonia, unspecified organism; J85.1 Abscess of lung with pneumonia; C25.0 Malignant neoplasm of head of pancreas; K76.0 Fatty (change of) liver, not elsewhere classified; I10 Essential (primary) hypertension; J98.4 Other disorders of lung; Y90.8 Blood alcohol level of 240 mg/100 ml or more; F10.20 Alcohol dependence, uncomplicated; E83.42 Hypomagnesemia; Z20.822 Contact with and (suspected) exposure to COVID-19
CPT/HCPCS: 36415; 70450; 71045; 71260; 74183; 80048; 80053; 80076; 80202; 80307; 83605; 83690; 83735; 84484; 85025; 85027; 86301; 86704; 86706; 86738; 86803; 87040; 87070; 87205; 87340; 87389; 87449; 87502; 87637; 87640; 87641; 87899; 93005; 93306; 95816; 97161; 99285; A9585; J0696; J1171; J1271; J1644; J2470; J2543; J3374; J3411; J3475; J7120; Q9957; Q9967; S9485

== ENCOUNTER → 2025-10-15 21:51 | Outpatient (BNV) | payer MEDICARE, MEDICAID, SELFPAY | PROVIDERS: Admitting Provider Hospitalist; Emergency Provider Emergency Medicine; Visit Provider Internal Medicine | DX: R94.31 Abnormal electrocardiogram [ECG] [EKG] (principal); R53.1 Weakness | CPT/HCPCS: 93010 ==

== ENCOUNTER → 2025-10-15 21:51 | Outpatient (BNV) | payer MEDICARE, MEDICAID, SELFPAY | PROVIDERS: Visit Provider Radiology Diagnostic Radiology | DX: R07.9 Chest pain, unspecified (principal) | CPT/HCPCS: 71045 ==

== ENCOUNTER → 2025-10-16 00:02 | Outpatient (BNV) | payer MEDICARE, MEDICAID, SELFPAY | PROVIDERS: Emergency Provider Emergency Medicine; Visit Provider Radiology Diagnostic Radiology | DX: R05.9 Cough, unspecified (principal); R06.02 Shortness of breath; K83.8 Other specified diseases of biliary tract; R29.6 Repeated falls; F10.10 Alcohol abuse, uncomplicated; G31.9 Degenerative disease of nervous system, unspecified; R90.82 White matter disease, unspecified | CPT/HCPCS: 70450; 71260; 74183 ==

== ENCOUNTER 2025-10-16 02:12 | Outpatient (BNV) | payer MEDICARE, MEDICAID, SELFPAY | END 2025-10-17 10:15 | PROVIDERS: Admitting Provider Hospitalist; Emergency Provider Emergency Medicine; Visit Provider Psychiatry & Neurology Neurology | DX: R56.9 Unspecified convulsions (principal); Z04.3 Encounter for examination and observation following other accident | CPT/HCPCS: 95816 ==

== ENCOUNTER 2025-10-16 02:12 | Outpatient (BNV) | payer MEDICARE, MEDICAID, SELFPAY | END 2025-10-16 07:00 | PROVIDERS: Admitting Provider Hospitalist; Emergency Provider Emergency Medicine; Visit Provider Internal Medicine | DX: I35.0 Nonrheumatic aortic (valve) stenosis (principal) | CPT/HCPCS: 93306 ==

== ENCOUNTER → 2025-10-16 02:12 | Outpatient (BNV) | payer MEDICARE, MEDICAID, SELFPAY | PROVIDERS: Admitting Provider Hospitalist; Emergency Provider Emergency Medicine; Visit Provider Internal Medicine | DX: J86.9 Pyothorax without fistula (principal); J18.9 Pneumonia, unspecified organism | CPT/HCPCS: 99222 ==

== ENCOUNTER → 2025-10-16 02:12 | Outpatient (BNV) | payer MEDICARE, MEDICAID, SELFPAY | PROVIDERS: Admitting Provider Hospitalist; Emergency Provider Emergency Medicine; Visit Provider Internal Medicine | DX: J85.2 Abscess of lung without pneumonia (principal); J18.9 Pneumonia, unspecified organism | CPT/HCPCS: 99233 ==

== ENCOUNTER → 2025-10-16 02:12 | Outpatient (BNV) | payer MEDICARE, MEDICAID, SELFPAY | PROVIDERS: Admitting Provider Hospitalist; Emergency Provider Emergency Medicine; Visit Provider Nurse Practitioner Psychiatric/Mental Health | DX: F10.90 Alcohol use, unspecified, uncomplicated (principal) | CPT/HCPCS: 99222 ==

== ENCOUNTER → 2025-10-16 02:12 | Outpatient (BNV) | payer MEDICARE, MEDICAID, SELFPAY | PROVIDERS: Admitting Provider Hospitalist; Emergency Provider Emergency Medicine; Visit Provider Internal Medicine Pulmonary Disease | DX: T17.900A Unspecified foreign body in respiratory tract, part unspecified causing asphyxiation, initial encounter (principal); J85.2 Abscess of lung without pneumonia | CPT/HCPCS: 99222 ==

== ENCOUNTER → 2025-10-16 02:12 | Outpatient (BNV) | payer MEDICARE, MEDICAID, SELFPAY | PROVIDERS: Admitting Provider Hospitalist; Emergency Provider Emergency Medicine; Visit Provider Internal Medicine | DX: K86.9 Disease of pancreas, unspecified (principal); J18.9 Pneumonia, unspecified organism | CPT/HCPCS: 99222 ==